=== PATIENT | male | born 1950 | race Caucasian/White ===

== ENCOUNTER → 2018-03-20 | Outpatient (CLI) | payer OTHER, MEDICARE ==
[~2018-03-20] MED LIST: BUDE180I INH; PANT40TA PO; SIMV40TA2 PO; VALS40TA2 PO; ZOLP10TA6 PO
[2018-03-20 10:18] LABS: BASO % 0.6 %; BASO ABS # 0.03 K/uL (0-0.2); EOS ABS # 0.25 K/uL (0-0.5); HEMATOCRIT 45.6 % (42-52); HEMOGLOBIN 15.6 g/dL (14.0-18.0); IG# 0.01 K/uL (0.00-0.02); LYMPH % 32.5 %; LYMPH ABS # 1.61 K/uL (1.2-3.4); MEAN CELL VOLUME 92.3 fL (80-100); MEAN CORPUSCULAR HEMOGLOBIN 31.6 pg (25-34); MEAN CORPUSCULAR HGB CONC 34.2 g/dl (32-36); MEAN PLATELET VOLUME 10.6 fL (7.4-10.4); MONO % 10.3 %; MONO ABS # 0.51 K/uL (0.11-0.59); NEUT % 51.4 %; NEUT ABS # 2.55 K/uL (1.4-6.5); PLATELET COUNT 240 K/uL (130-400); RED CELL DISTRIBUTION WIDTH SD 47.8 fL (36.4-46.3); WHITE BLOOD COUNT 4.96 K/uL (4.8-10.8)
[2018-03-20 10:59] LABS: FOLLICLE STIMULAT HORMONE 2.33 IU/L; LUTEINIZING HORMONE 0.79 IU/L; PROLACTIN 5.04 ng/mL
== END | disposition home or self-care (01) ==
LOC: C.LAB 09:05
PROVIDERS: ATTEND Family Medicine
DX: E29.1 Testicular hypofunction (principal)

== ENCOUNTER 2020-10-15 09:08 | Observation (INO) ==
[2020-10-15] MEDS ORDERED: SODIUM CHLORIDE 0.9% 1000ML 1,000 ML IV ONE (09:40)
--- NOTE | 2020-10-15 09:42 | Emergency Department Note ---
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 He notes he has lost the short-term memory. He was doing fine yesterday but had no complaints. He woke up this morning and cannot remember things that he did and things that have occurred recently. He denies any headache or change in vision. No chest pain or shortness of breath. No nausea, vomiting or diarrhea. No dysuria, urgency or frequency. No weakness or numbness in his arms or legs. He admits to a tremor on his left side associated with Parkinson's and a history of asthma and BPH. ROS: See above HPI for pertinent positives & negatives. A total of 10 systems reviewed and were otherwise negative. PAST MEDICAL HISTORY:See Below PAST SURGICAL HISTORY:See Below FAMILY HISTORY:See Below SOCIAL HISTORY:See Below HOME MEDICATIONS:See Below ALLERGIES:See Below VITALS:See Below PHYSICAL EXAMINATION: GENERAL: Sitting up in bed, alert, well appearing, well nourished, no distress, non-toxic EYE EXAM: normal conjunctiva. PERRL and EOM's intact. OROPHARYNX: no exudate, no erythema, lips, buccal mucosa, and tongue normal and mucous membranes are moist NECK: supple, no nuchal rigidity, no adenopathy, non-tender LUNGS: Clear to auscultation. Normal chest wall mechanics HEART: no murmurs, S1 normal and S2 normal ABDOMEN: abdomen soft, non-tender, normo-active bowel sounds, no masses, no rebound or guarding. UPPER EXTREMITIES: upper extremities are grossly normal. LOWER EXTREMITIES: No pitting edema. NEURO EXAM: Oriented to person and place, cranial nerves II-XII intact, normal speech, no weakness of arms, no weakness of legs. No drift. Finger to nose intact. Gross sensation intact. [id number] intact. Rapid alternating movements of upper extremities intact. 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 His long-term memory is intact. He has no focal weakness or any other complaints. IV was established blood work was obtained. Labs show no significant leukocytosis or anemia. INR unremarkable. BMP with LFTs bilirubin remarkable for slightly elevated AST. Troponin was negative. TSH was unremarkable. Urine was not collected although ordered. 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 He was updated bedside. Pacer was interrogated. He was discussed with hospitalist and will be observed overnight for further work-up as I do favor that this likely transient global amnesia. Triage Nursing notes reviewed. Limited review of prior medical records performed Vital Signs: reviewed and remarkable for hypertensive and tachycardic Differential diagnosis: Differential diagnoses includes but is not limited to toxic, metabolic, infectious, traumatic, cardiac, neurologic, hematologic, psychiatric and inflammatory etiologies. ER treatment provided: See below Diagnostics interpreted by me: ECG: Sinus tachycardia rate of 100 Normal axis No PVCs QTC 415 Cardiac Monitoring: An order was placed for continuous cardiac monitoring. The monitor shows a rate of 103 with sinus rhythm. Laboratory studies: As stated above and show below. Imaging studies: CT of the head as well as angio of the head and neck shows left internal carotid fusiform aneurysm Portable AP upright 1 view the chest shows no focal infiltrate or pneumothorax. Consultation(s): Discussed with hospitalist for further evaluation Procedures: none Critical Care: None Past Med/Surg History Medical History (Updated 10/15/20 @ 12:16 by Chloe Bo PA-C) Asthma BPH loc w urin obs/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 High blood pressure High cholesterol Hypogonadism Insomnia Low testosterone Male erectile disorder Pacemaker Parkinson disease Surgical History (Updated 10/15/20 @ 11:30 by Chloe Bo PA-C) History of arthroscopic knee surgery History of arthroscopy of shoulder b/l History of hemorrhoidectomy History of pacemaker History of penile implant History of transurethral resection of prostate History of vasectomy Family History (Updated 10/15/20 @ 11:31 by Chloe Bo PA-C) Father Coronary heart disease Pacemaker Social History (Updated 10/15/20 @ 11:31 by Chloe Bo PA-C) Smoking Status: Former smoker Tobacco Type: Cigarettes Hx Alcohol Use: Yes Alcohol type: beer Alcohol Intake Frequency Comment: 2-4 beers daily Hx Substance Use: No Preferred Language: Lebanese Beliefs That Will Affect Care: None Current Living Situation: Alone Other Information That Helps Us Care for You: No Feels Safe at Home: Yes Safety Concerns: Feels Safe At This Time Assistive Devices: Glasses Allergies Allergies Allergy/AdvReac Type Severity Reaction Status Date / Time No Known Allergies Allergy Unverified 10/15/20 10:38 Home Meds Home Medications Medication Instructions Recorded Confirmed budesonide 180 mcg/actuation 1 puffs INH BID 07/17/19 10/15/20 breath activated powder inhaler pantoprazole 40 mg tablet,delayed 40 mg PO DAILY 07/17/19 10/15/20 release aspirin 81 mg PO DAILY 10/15/20 10/15/20 atorvastatin 40 mg PO DAILY 10/15/20 10/15/20 carbidopa-levodopa 1 tab PO TID 10/15/20 10/15/20 losartan 50 mg PO DAILY 10/15/20 10/15/20 temazepam 15 mg PO HS PRN 10/15/20 10/15/20 tramadol 75 mg PO DAILY@1400 PRN 10/15/20 10/15/20 tramadol 100 mg PO DAILY 10/15/20 10/15/20 trazodone 50 mg PO UD 10/15/20 10/15/20 Results & Data (ED) Vital Signs Vital Signs - 24 hr 10/15/20 09:16 10/15/20 09:35 10/15/20 09:46 Temperature 36.3 C L Temperature Source Oral Pulse Rate 110 H 98 H 99 H Pulse Rate [Left Apical] Pulse Rate from SpO2 Sensor 98 H Pulse Rhythm Regular Pulse Rhythm [Left Apical] Pulse Strength [Left Apical] Respiratory Rate 20 19 15 Respiratory Effort / Characteristics Non-Labored Spontaneous Respiratory Depth Normal Respiratory Pattern Regular Blood Pressure 171/111 H 149/106 H Blood Pressure [Right Arm] Blood Pressure Mean 131 120 Blood Pressure Mean [Right Arm] Pulse Oximetry 94 96 93 Oxygen Delivery Method Room Air Room Air Sepsis Recent Fever Within 48 Hours No Sepsis New/Unexplained Change in Mental Status N/A Sepsis Action Taken by Nursing No Action Required 10/15/20 10:47 10/15/20 11:00 02/17/21 11:02 Temperature 36.8 C Temperature Source Oral Pulse Rate 99 H 98 H Pulse Rate [Left Apical] 96 H Pulse Rate from SpO2 Sensor 98 H 98 H Pulse Rhythm Pulse Rhythm [Left Apical] Regular Pulse Strength [Left Apical] Normal Respiratory Rate 14 13 16 Respiratory Effort / Characteristics Non-Labored Respiratory Depth Normal Respiratory Pattern Regular Blood Pressure 166/106 H 160/110 H Blood Pressure [Right Arm] 160/110 H Blood Pressure Mean 126 126 Blood Pressure Mean [Right Arm] 126 Pulse Oximetry 95 95 94 Oxygen Delivery Method Room Air Sepsis Recent Fever Within 48 Hours Sepsis New/Unexplained Change in Mental Status Sepsis Action Taken by Nursing Laboratory Data Result diagrams: 10/15/20 09:30 10/15/20 09:30 Lab Results 10/15/20 10/15/20 10/15/20 Range/Units 09:30 09:30 09:30 WBC 4.96 (4.8-10.8) K/uL RBC 4.66 L (4.7-6.1) M/uL Hgb 15.2 (14.0-18.0) g/dL Hct 43.9 (42-52) % MCV 94.2 (80-100) fL MCH 32.6 (25-34) pg MCHC 34.6 (32-36) g/dL RDW Std Deviation 45.6 (36.4-46.3) fL RDW Coeff of Nicole 13.2 (11.5-14.5) % Plt Count 215 (130-400) K/uL MPV 10.1 (7.4-10.4) fL Immature Gran % (Auto) 0.2 % Neut % (Auto) 50.6 % Lymph % (Auto) 34.7 % Logan % (Auto) 9.1 % Eos % (Auto) 5.0 % Baso % (Auto) 0.4 % Neut # (Auto) 2.51 (1.4-6.5) K/uL Lymph # (Auto) 1.72 (1.2-3.4) K/uL Logan # (Auto) 0.45 (0.11-0.59) K/uL Eos # (Auto) 0.25 (0-0.5) K/uL Baso # (Auto) 0.02 (0-0.2) K/uL Immature Gran # (Auto) 0.01 (0.00-0.02) K/uL PT 9.7 (9.0-12.0) Seconds INR 1.0 (0.9-1.1) Sodium 136 (136-145) mmol/L Potassium 3.9 (3.5-5.1) mmol/L Chloride 101 (98-107) mmol/L Carbon Dioxide 28 (21-32) mmol/L Anion Gap 7.0 (3-11) BUN 7 (7-18) mg/dl Creatinine 1.00 (0.6-1.4) mg/dl Est Cr Clr Drug Dosing 68.7 ml/min Est GFR ( Amer) 88.0 Est GFR (Non-Af Amer) 75.9 BUN/Creatinine Ratio 6.8 L (10-20) Glucose 88 (70-99) mg/dl Calcium 9.6 (8.5-10.1) mg/dl Total Bilirubin 0.6 (0.2-1) mg/dl AST 95 H (15-37) U/L ALT 30 (12-78) U/L Alkaline Phosphatase 99 (45-117) U/L Troponin I < 0.015 (0-0.045) ng/ml Total Protein 7.4 (6.4-8.2) gm/dl Albumin 4.0 (3.4-5.0) gm/dl Globulin 3.4 (2.5-4.0) gm/dl Albumin/Globulin Ratio 1.2 (0.9-2) TSH 0.695 (0.300-4.500) uIu/ml COVID-19 Eval Order SARS-CoV-2, RNA, NAAT (NEGATIVE) 10/15/20 10/15/20 Range/Units 10:39 10:39 WBC (4.8-10.8) K/uL RBC (4.7-6.1) M/uL Hgb (14.0-18.0) g/dL Hct (42-52) % MCV (80-100) fL MCH (25-34) pg MCHC (32-36) g/dL RDW Std Deviation (36.4-46.3) fL RDW Coeff of Nicole (11.5-14.5) % Plt Count (130-400) K/uL MPV (7.4-10.4) fL Immature Gran % (Auto) % Neut % (Auto) % Lymph % (Auto) % Logan % (Auto) % Eos % (Auto) % Baso % (Auto) % Neut # (Auto) (1.4-6.5) K/uL Lymph # (Auto) (1.2-3.4) K/uL Logan # (Auto) (0.11-0.59) K/uL Eos # (Auto) (0-0.5) K/uL Baso # (Auto) (0-0.2) K/uL Immature Gran # (Auto) (0.00-0.02) K/uL PT (9.0-12.0) Seconds INR (0.9-1.1) Sodium (136-145) mmol/L Potassium (3.5-5.1) mmol/L Chloride (98-107) mmol/L Carbon Dioxide (21-32) mmol/L Anion Gap (3-11) BUN (7-18) mg/dl Creatinine (0.6-1.4) mg/dl Est Cr Clr Drug Dosing ml/min Est GFR ( Amer) Est GFR (Non-Af Amer) BUN/Creatinine Ratio (10-20) Glucose (70-99) mg/dl Calcium (8.5-10.1) mg/dl Total Bilirubin (0.2-1) mg/dl AST (15-37) U/L ALT (12-78) U/L Alkaline Phosphatase (45-117) U/L Troponin I (0-0.045) ng/ml Total Protein (6.4-8.2) gm/dl Albumin (3.4-5.0) gm/dl Globulin (2.5-4.0) gm/dl Albumin/Globulin Ratio (0.9-2) TSH (0.300-4.500) uIu/ml COVID-19 Eval Order Covid19 [facility] SARS-CoV-2, RNA, NAAT NEGATIVE (NEGATIVE) Administered Medications Discontinued Medications Carbidopa/Levodopa (Carbidopa/Levodopa 25/100mg Tab) 1 tab PO NOW STA Stop: 10/15/20 12:07 Last Admin: 10/15/20 13:00 Dose: 1 tab Documented by: [id number] Sodium Chloride (Nss 1000ml) 1,000 mls @ 999 mls/hr IV .Q1H1M ONE Stop: 10/15/20 10:40 Last Infusion: 10/15/20 11:18 Dose: 0 mls/hr Documented by: [id number] Admin: 10/15/20 10:02 Dose: 999 mls/hr Documented by: [id number] Ioversol (Optiray 320 125ml) 120 ml IV ONCE ONE Stop: 10/15/20 10:16 Last Admin: 10/15/20 10:15 Dose: 120 ml Documented by: [id number] Discharge Plan Visit Data Chief Complaint: Confusion Stated Complaint: CONFUSION ED Provider: Christian Varma Discharge Problem: Altered mental status, Aneurysm of internal carotid artery Patient Disposition: Admitted As Inpatient Discharge Instructions Interventions: ED Discharge Assessment Last Done: 10/15/20 13:05 Discharge Problem: Altered mental status Qualifiers: Altered mental status type: unspecified Qualified Code(s): R41.82 - Altered mental status, unspecified
[2020-10-15 09:43] LABS: Basophils # (auto) 0.02 K/uL (0-0.2); Basophils % (auto) 0.4 %; Eosinophils # (auto) 0.25 K/uL (0-0.5); Hematocrit (blood only) 43.9 % (42-52); Hemoglobin 15.2 g/dL (14.0-18.0); Immature Granulocytes # (auto) 0.01 K/uL (0.00-0.02); Immature Granulocytes % (auto) 0.2 %; Lymphocytes # (auto) 1.72 K/uL (1.2-3.4); Lymphocytes % (auto) 34.7 %; Mean Corpuscular Hemoglobin 32.6 pg (25-34); Mean Corpuscular Hgb Conc 34.6 g/dL (32-36); Mean Corpuscular Volume 94.2 fL (80-100); Mean Platelet Volume 10.1 fL (7.4-10.4); Monocytes # (auto) 0.45 K/uL (0.11-0.59); Monocytes % (auto) 9.1 %; Neutrophils # (auto) 2.51 K/uL (1.4-6.5); Neutrophils % (auto) 50.6 %; Platelet Count 215 K/uL (130-400); RDW Coefficient of Variation 13.2 % (11.5-14.5); RDW Standard Deviation 45.6 fL (36.4-46.3); Red Blood Count 4.66 M/uL (4.7-6.1); White Blood Count 4.96 K/uL (4.8-10.8)
[2020-10-15 09:54] LABS: Prothrombin Time 9.7 Seconds (9.0-12.0)
[2020-10-15 10:03] LABS: Alanine Aminotransferase 30 U/L (12-78); Aspartate Aminotransferase 95 U/L (15-37); BUN Creatinine Ratio 6.8 (10-20); Blood Urea Nitrogen 7 mg/dl (7-18); Calcium 9.6 mg/dl (8.5-10.1); Carbon Dioxide 28 mmol/L (21-32); Chloride 101 mmol/L (98-107); Creatinine Clr Calc Pharmacy 68.7 ml/min; Est GFR (Non-African American) 75.9; Glucose 88 mg/dl (70-99); Potassium 3.9 mmol/L (3.5-5.1); Sodium 136 mmol/L (136-145)
[2020-10-15 10:14] LABS: Albumin Globulin Ratio 1.2 (0.9-2); Alkaline Phosphatase 99 U/L (45-117); Bilirubin,Total 0.6 mg/dl (0.2-1); Globulin 3.4 gm/dl (2.5-4.0); Thyroid Stimulating Hormone 0.695 uIu/ml (0.300-4.500); Total Protein 7.4 gm/dl (6.4-8.2); Troponin I < 0.015 ng/ml (0-0.045)
[2020-10-15] MEDS ORDERED: OPTIRAY 320 125ml IV ONE (10:15)
--- NOTE | 2020-10-15 10:40 | CT Scan Report ---
CT angio head wo/w CLINICAL HISTORY: Altered mental status. COMPARISON STUDY: No previous studies for comparison. TECHNIQUE: Unenhanced and arterial phase imaging of the head was performed. Intravenous injection of 120 cc Optiray 320 IV was uneventful. Sagittal and coronal reconstructions were viewed as well as max imal intensity projections on an independent 3-D workstation. Automated exposure control was utilized for the study. A dose lowering technique was utilized adhering to the principles of ALARA. FINDINGS: No acute intracranial hemorrhage, midline shift or mass effect is present. Brain volume is normal. Ventricular system is normal. Basilar cisterns are patent. There are no extra-axial collectio ns. Mild white matter hypodensity suggests small vessel disease. There are no findings to suggest acu te dural sinus thrombosis or acute territorial infarct. Visualized portions of the sinuses and mastoi d air cells are clear. There is mild fusiform aneurysmal dilatation of the left internal carotid valencia ry at the level of the skull base shown on axial image 9 of 240. The vessel measures 7 mm in caliber at this level. No saccular aneurysm is identified. No intracranial aneurysm is identified. There is f etal persistence of the right posterior cerebral artery. No central vessel occlusion is noted. The bi lateral M1, M2, A1 and A2 segments are patent. IMPRESSION: 1. No acute intracranial findings. 2. No central vessel occlusion. No significant stenosis within the intracranial vessels. 3. Mild fusiform aneurysmal dilatation of the left internal carotid artery at the level of the skull base, as described above. ACT 112: Negative or not required by law. Electronically signed by: Holland Jackson M.D. 10/15/2020 10:38 AM
--- NOTE | 2020-10-15 10:42 | CT Scan Report ---
CT angio neck with con CLINICAL HISTORY: 69 years-old Male with ams. Acutely altered mental status COMPARISON STUDY: CTA of the head of same day TECHNIQUE: Following the IV administration of 120 mL of Optiray 320, CT angiogram of the neck was per formed from the aortic arch to the skull base. Images are reviewed in the axial, sagittal, and dockery l planes. 3-D MIPS images are created and assessed. IV contrast was administered without complication . All measurements were calculated based on NASCET criteria. A dose lowering technique was utilized adhering to the principles of ALARA. FINDINGS: The opacified pulmonary artery is unremarkable. Three-vessel morphology of the thoracic arch. Patency of the innominate and imaged subclavian arteries. Common carotid arteries are widely patent. There i s mild mixed plaque of the right carotid bulb without significant stenosis. Tortuosity of the mid to distal cervical segment right ICA. There is mild fusiform dilation of the left ICA at the cervical pe trous junction measuring up to 7 mm transversely. Codominant and patent vertebral arteries. Calcified plaque at the origin of the left vertebral artery results in approximately 50% luminal narrowing. Th ere is mild luminal narrowing of the V2 segment left vertebral artery at the level of C4-C5 secondary to uncovertebral spurring, image 231 series 6. Calcified plaque at the origin of the right vertebral artery causes mild luminal narrowing. Calcified mediastinal and hilar lymph nodes compatible with prior granulomatous disease. There is no pneumothorax. Hyperdense 12 mm nodule of the thyroid isthmus. Unremarkable soft tissues of the neck. Multilevel degenerative changes of the spine. IMPRESSION: 1. No aneurysm, dissection, high-grade stenosis or proximal branch occlusion. 2. Additional findings as above. ACT 112: Negative or not required by law. The above report was generated using voice recognition software. It may contain grammatical, syntax o r spelling errors. Electronically signed by: Josias Plunkett M.D. 10/15/2020 10:41 AM
--- NOTE | 2020-10-15 10:48 | XRay Report ---
XR chest 1V portable HISTORY: 69 years-old Male weakness acute weakness COMPARISON: CTA of the neck of same day, chest radiograph 11/26/2012 TECHNIQUE: Portable AP view of the chest FINDINGS: Cardiomediastinal and hilar silhouettes are within normal limits. Left subclavian pacer. Calcified le ft hilar lymph nodes. Nipple shadows project over the lung bases. Probable calcific granuloma of the lateral left lung base. No pneumothorax, pleural effusion, airspace consolidation or overt pulmonary edema. Degenerative changes of the shoulders and spine. Radiodense material projects over the patient 's left upper extremity, possibly external to the patient. IMPRESSION: 1. Prior granulomatous disease without acute process. 2. Nodular opacities of the lung bases suggest nipple shadows. ACT 112: Negative or not required by law. The above report was generated using voice recognition software. It may contain grammatical, syntax o r spelling errors. Electronically signed by: Josias Plunkett M.D. 10/15/2020 10:46 AM
--- NOTE | 2020-10-15 11:22 | History & Physical Report ---
Date of Service October 15, 2020 Assessment & Plan (1) Altered mental status: This is a 69-year-old male who has significant past medical history of SA node dysfunction status post pacemaker in 2013, HTN, HLD, asthma, GERD, Parkinson's who presents ED secondary to confusion x4 to 5 hours. Work up in ED mostly unrevealing. Patient was hemodynamically stable although modestly hypertensive and mildly tachycardic. 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 Patient with transient confusion that started at approximately 730 this morning. Feels it is improving but still has intermittent confusion, difficulty recal ling events this morning. Admit to med telemetry Consult neurology -appreciate their recommendations for further imaging including MRI EEG rule out seizure-like activity neuro checks pt/ot/st vit b12, rpr ddx: possible TGA, CVA, alcohol misuse and withdrawal, Wernicke encephalopathy, vit b def, drug toxicity among others (2) Aneurysm of internal carotid artery: incidental finding on CTA H/N recommend follow up as outpt (3) Sinus node dysfunction: s/p pacemaker in 2003 had pacer check 10/07 WNL, also had done in ED WNL (4) Alcohol abuse: 2-4 beers daily last drink last evening 4 beers start thiamine, folic acid prn lorazepam and withdrawal protocol (5) High blood pressure: BP significantly elevated in ED, may be in setting of anxiety vs underlying neurologic process continue losartan - states measures BP at home and consistently 130/90 or less prn hydralazine monitor (6) High cholesterol: continue statin (7) Insomnia: temazepam @ hs prn (8) Parkinson disease: continue sinemet (9) DVT prophylaxis: Lovenox Dispo: med tele PCP: Dr. Moore @ [facility], follows [facility]DC[facility] cards and neurology FULL CODE Pt was seen and examined in collaboration with Dr. Sanderson, please see addendum History of Present Illness Chief Complaint: Confusion x4 to 5 hours. Primary Care Provider: Guillermo Moore MD This is a 69-year-old male who has significant past medical history of SA node dysfunction status post pacemaker in 2013, HTN, HLD, asthma, GERD, Parkinson's who presents ED secondary to confusion x4 to 5 hours. He woke up this morning and he felt okay around 6:30 a.m. Gradually things started to feel funny and he was to report to work at 9am. Driving to work he realized he was more and more, "not right." He was having trouble remembering what he just did. He recalls events from yesterday and knows he had 4 beers yesterday as he had a, "date." He is recently but feels he has not had an recent stressor. He is having difficulty remembering his medications or his doctors. He denies recent illness, f/c/s, dizziness, lightheaded, syncope, BARNES, visual change, chest pain, sob, cough, URI sx, n/v/d, abdominal pain, change in urinary/bowel habits. Sx lasted ~ 7:30 a.m. and still feels confused but is slowly starting to recall. Known exposure to covid 1 month ago but no symptoms. He did receive covid vaccine, second dose 1 week ago. He did have a sore arm and 12hrs of flu like sx post vaccine. Sx feel similar to when he presented with bradycardia when he required pacer. Allergies Allergy/AdvReac Type Severity Reaction Status Date / Time No Known Allergies Allergy Unverified 10/15/20 10:38 Home Medications Medication Instructions Recorded Confirmed Type budesonide 180 mcg/actuation 1 puffs INH BID 07/17/19 10/15/20 History breath activated powder inhaler pantoprazole 40 mg tablet,delayed 40 mg PO DAILY 07/17/19 10/15/20 History release aspirin 81 mg PO DAILY 10/15/20 10/15/20 History atorvastatin 40 mg PO DAILY 10/15/20 10/15/20 History carbidopa-levodopa 1 tab PO TID 10/15/20 10/15/20 History losartan 50 mg PO DAILY 10/15/20 10/15/20 History temazepam 15 mg PO HS PRN 10/15/20 10/15/20 History tramadol 75 mg PO DAILY@1400 PRN 10/15/20 10/15/20 History tramadol 100 mg PO DAILY 10/15/20 10/15/20 History trazodone 50 mg PO UD 10/15/20 10/15/20 History Past Med/Surg History Medical History (Updated 10/15/20 @ 12:16 by Chloe Bo PA-C) Asthma BPH loc w urin obs/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 High blood pressure High cholesterol Hypogonadism Insomnia Low testosterone Male erectile disorder Pacemaker Parkinson disease Surgical History (Updated 10/15/20 @ 11:30 by Chloe Bo PA-C) History of arthroscopic knee surgery History of arthroscopy of shoulder b/l History of hemorrhoidectomy History of pacemaker History of penile implant History of transurethral resection of prostate History of vasectomy Family History (Updated 10/15/20 @ 11:31 by Chloe Bo PA-C) Father Coronary heart disease Pacemaker Social History (Updated 10/15/20 @ 11:31 by Chloe Bo PA-C) Smoking Status: Former smoker Tobacco Type: Cigarettes Hx Alcohol Use: Yes Alcohol type: beer Alcohol Intake Frequency Comment: 2-4 beers daily Hx Substance Use: No Preferred Language: [place] Zeal[place] Beliefs That Will Affect Care: None Current Living Situation: Alone Other Information That Helps Us Care for You: No Feels Safe at Home: Yes Safety Concerns: Feels Safe At This Time Assistive Devices: Glasses Review of Systems Review of Systems: All systems reviewed & are unremarkable except as noted in HPI & below Physical Exam Physical Exam: Constitutional: WD/WN, M, vitals as above, NAD, sitting up in bed, pleasant, conversing easily Head: Normocephalic, Atraumatic Eyes: PERRL, conjunctivae normal, anicteric sclerae ENMT: external ear and nose normal, oropharynx normal Neck: trachea midline, no thyromegaly normal visual inspection Respiratory: normal respiratory effort, lungs clear to auscultation, no wheeze, rales, rhonchi. Normal insp/exp effort, no accessory muscle use Cardiovascular: RRR, no murmur, no edema Vessels: no JVD or carotid bruit Chest: normal inspection of chest Abdomen: normal bowel sounds, soft, nontender, no hepatosplenomegaly Musculoskeletal: no cyanosis or clubbing, extremities motor strength 5/5 Skin: no rashes, warm and dry normal turgor Neurologic: PERRL, EOMI, accommodation nl, no face palsy, no dysarthria CN's II-XI intact bilaterally and moves all extremities Psychiatric: A+Ox3, decent recall, remembers president (states he looked it up), able to count backwards, euthymic affect Lymphatic: no cervical or axillary lymphadenopathy : deferred Results & Data Results & Data ([facility]) Vital Signs (Past 12 Hours) Vital Signs Temp Pulse Pulse Resp BP BP Pulse Ox 10/15/20 11:02 36.8 C 96 H 16 160/110 H 94 10/15/20 11:00 98 H 13 160/110 H 95 10/15/20 10:47 99 H 14 166/106 H 95 10/15/20 09:46 99 H 15 149/106 H 93 10/15/20 09:35 98 H 19 96 10/15/20 09:16 36.3 C L 110 H 20 171/111 H 94 Diagnostic Findings CTA Head: IMPRESSION: 1. No acute intracranial findings. 2. No central vessel occlusion. No significant stenosis within the intracranial vessels. 3. Mild fusiform aneurysmal dilatation of the left internal carotid artery at the level of the skull base, as described above. CTA neck: IMPRESSION: 1. No aneurysm, dissection, high-grade stenosis or proximal branch occlusion. 2. Additional findings as above. CXR: IMPRESSION: 1. Prior granulomatous disease without acute process. 2. Nodular opacities of the lung bases suggest nipple shadows. Medications Administered Discontinued Medications Sodium Chloride (Nss 1000ml) 1,000 mls @ 999 mls/hr IV .Q1H1M ONE Stop: 10/15/20 10:40 Last Infusion: 10/15/20 11:18 Dose: 0 mls/hr Documented by: [id number] Admin: 10/15/20 10:02 Dose: 999 mls/hr Documented by: [id number] Ioversol (Optiray 320 125ml) 120 ml IV ONCE ONE Stop: 10/15/20 10:16 Last Admin: 10/15/20 10:15 Dose: 120 ml Documented by: [id number] ECG Rate (beats per minute): 100 Rhythm: normal sinus COVID-19 Results Results COVID-19 Adm Lab Results: RBC 4.66 M/uL (4.7-6.1) L 10/15/20 WBC 4.96 K/uL (4.8-10.8) 10/15/20 Hgb 15.2 g/dL (14.0-18.0) 10/15/20 Hct 43.9 % (42-52) 10/15/20 Plt Count 215 K/uL (130-400) 10/15/20 Neutrophils (%) (Auto) 50.6 % 10/15/20 Lymphocytes (%) (Auto) 34.7 % 10/15/20 Monocytes # (Auto) 0.45 K/uL (0.11-0.59) 10/15/20 Eosinophils # (Auto) 0.25 K/uL (0-0.5) 10/15/20 Immature Granulocyte % (Auto) 0.2 % 10/15/20 Neutrophils # (Auto) 2.51 K/uL (1.4-6.5) 10/15/20 Lymphocytes # (Auto) 1.72 K/uL (1.2-3.4) 10/15/20 Monocytes # (Auto) 0.45 K/uL (0.11-0.59) 10/15/20 Eosinophils # (Auto) 0.25 K/uL (0-0.5) 10/15/20 Basophils # (Auto) 0.02 K/uL (0-0.2) 10/15/20 Immature Granulocyte # (Auto) 0.01 K/uL (0.00-0.02) 10/15/20 Na 136 mmol/L (136-145) 10/15/20 K 3.9 mmol/L (3.5-5.1) 10/15/20 Cl 101 mmol/L (98-107) 10/15/20 CO2 28 mmol/L (21-32) 10/15/20 Anion Gap 7.0 (3-11) 10/15/20 BUN 7 mg/dl (7-18) 10/15/20 Creatinine 1.00 mg/dl (0.6-1.4) 10/15/20 BUN/Creatinine Ratio 6.8 (10-20) L 10/15/20 Glucose Level 88 mg/dl (70-99) 10/15/20 Ca 9.6 mg/dl (8.5-10.1) 10/15/20 Total Bilirubin 0.6 mg/dl (0.2-1) 10/15/20 AST/SGOT 95 U/L (15-37) H 10/15/20 ALT/SGPT 30 U/L (12-78) 10/15/20 Alkaline Phosphatase 99 U/L (45-117) 10/15/20 Total Protein 7.4 gm/dl (6.4-8.2) 10/15/20 Albumin 4.0 gm/dl (3.4-5.0) 10/15/20 Globulin 3.4 gm/dl (2.5-4.0) 10/15/20 Albumin/Globulin Ratio 1.2 (0.9-2) 10/15/20 Troponin I < 0.015 ng/ml (0-0.045) 10/15/20 INR 1.0 (0.9-1.1) 10/15/20 SARS-CoV-2, RNA, NAAT NEGATIVE (NEGATIVE) 10/15/20 Chest X-Ray 10/15/20 Code Status & VTE Plan Code Status Full Code VTE Prophylaxis Plan VTE Prophylaxis will be ordered: Yes Supervising Physician Co-Signing Physician Notes Patient is a 69-year-old male with history of Parkinson's disease, hypertension, asthma, SA node dysfunction and other medical problems presents with history of sudden onset of confusion/short-term memory this morning. He admits to having trouble remembering the events and does not feel to be himself today. He reports having 4 beers yesterday but denies any history of drug overdose, seizure activity, head trauma, change in vision, headache, focal weakness, recent stressors, hallucinations, delusions. Please review HPI for complete details of presentation. He had similar episodes previously when he was found to have a synovial dysfunction which resulted in pacemaker placement at that time. CT head, neck noncontributory. On exam patient is well-built and nourished, no apparent distress, normocephalic atraumatic, lungs are clear to auscultation, normal breath sounds, S1-S2, no murmur, abdomen soft, nontender, normal bowel sounds, alert, awake, oriented, grossly no focal neurological deficits, no pedal edema. + Memory issues recollecting events. Patient is admitted for management of altered mental status/memory issues DD: TGA, TIA, Seizure, Toxic/Metabolic Encephalopathy. Pacemaker interrogated while in ED which was normal. TSH normal. Will obtain toxicology screen, EEG, RPR, vitamin B12 levels. Consider MRI brain if needed. Neurochecks requested. Infectious cause less likely. Will monitor on telemetry. He denies any recent change in his medication dose. Will monitor for any alcohol withdrawal. Started on thiamine, folic acid. Blood pressure elevated in ED likely situational. Will adjust hypertensive medications as needed. I personally reviewed the record. Patient is interviewed and examined at bedside. Patient's care is coordinated with Chloe Bo PA-C. Please refer to the documentation above for details of patient's presentation and for discussion of other issues. (1) Altered mental status Altered mental status type: unspecified Qualified Code(s): R41.82 - Altered mental status, unspecified
[2020-10-15 11:36] LABS: Appearance Urine Clear (Clear); Bilirubin Urine Negative (Negative); Blood Urine Negative (Negative); Color Urine Yellow; Glucose Urine UA Negative (Negative); Ketones Urine Negative (Negative); Leukocyte Esterase Urine Negative (Negative); Nitrite Urine Negative (Negative); Protein Urine Negative (Negative); Specific Gravity Urine 1.024 (1.000-1.030); Urobilinogen Urine Negative (Negative); pH Urine 6.5 (4.5-7.5)
[2020-10-15] MEDS ORDERED: TRAMADOL 100 MG PO PRN (12:05)
[2020-10-15] MEDS ORDERED: CARBIDOPA/LEVODOPA 25/100MG TAB PO STA (12:06)
[2020-10-15 12:36] LABS: Amphetamines+Metham, Urine Neg (Neg); Barbiturates, Urine Neg (Neg); Benzodiazepine, Urine Neg (Neg); Cocaine, Urine Neg (Neg); MDMA (Ecstacy), Urine Neg (Neg); Methadone, Urine Neg (Neg); Opiate, Urine Neg (Neg); Phencyclidine, Urine Neg (Neg)
[2020-10-15] MEDS ORDERED: ONDANSETRON INJ 2 MG/ML 2 ML VIAL IV PRN (14:13)
[2020-10-15] MEDS ORDERED: ACETAMINOPHEN 325 MG TAB PO PRN (14:13)
[2020-10-15] MEDS ORDERED: hydrALAZINE 10 MG TAB PO PRN (14:13)
[2020-10-15] MEDS ORDERED: LORazepam 1 MG TAB PO PRN (14:13)
[2020-10-15] MEDS ORDERED: PHARMACIST DISCHARGE MED REC CONSULT PRN (14:13)
[2020-10-15] MEDS ORDERED: MAGNESIUM HYDROXIDE SUSP 30 ML UDC PO PRN (14:13)
[2020-10-15] MEDS ORDERED: traZODone HCL 50 MG TAB PO PRN (14:13)
[2020-10-15] MEDS ORDERED: TEMAZEPAM 15 MG CAPSULE PO PRN (14:13)
[2020-10-15] MEDS ORDERED: ALUMINUM/MAGNESIUM SUSP 30 ML UDC PO PRN (14:13)
[2020-10-15] MEDS ORDERED: POLYETHYLENE (MIRALAX) 17 GM PACK PO PRN (14:13)
--- NOTE | 2020-10-15 15:20 | Neurology Consultation ---
Date of Consultation October 15, 2020 Assessment & Plan (1) Parkinson disease: 1. continue Sinemet 25/100 mg TID for now- stable Present on Admission?: Yes (2) Pacemaker: 1. pacemaker interrogation Present on Admission?: Yes (3) Altered mental status: 1. EEG- if not already ordered 2. MRI brain with and without r/o stroke- has had MRIs at [facility] in the past with pacemaker rep present 3. continue aspirin 81 mg 4. optimize HTN HLD, LDL <70 5. may have been a hypertensive crisis- slowly decreased blood pressure Supervising Physician Co-Signing Physician Notes I have seen and discussed above patient with Dr Angelina Alicea, neurology patient seen and examined. About 4 years ago the patient had multiple episodes of dj vu and abnormal smells with weird feelings. His evaluation at that time by report showed a normal MRI and EEG and sometime thereafter a permanent pacemaker was placed. He never had any further episodes and was not on any new medications that would have surreptitiously treated seizure. On today's episode he was he woke up normal and was so for about an hour and then became "walfy" not mentally clear having some strange unusual feelings that may have been somewhat similar to the prior episodes 4 years ago but not entirely so. He was having difficulty if what he remembered was true or something he dreamed he was entirely alone so no one knows his level of function but he knew he was unwell drove to the hospital texted his work and told him he would not be in. He did not have a headache or any focal neurologic deficits. He had had 4 cans of beer last evening took a trazodone and took a Restoril during the night also took tramadol although this would not be unusual for him. He tooktramadol this morning as well Patient is awake and alert speech and language are normal affect is appropriate there are no carotid bruits no heart murmurs normal extraocular motility facial symmetry and symmetric strength. There is some cogwheeling at the left wrist and modest tremor on [id number] in the left his gait is nonparkinsonian Episode of confusion for which the patient is somewhat amnestic but functional and able to recognize his deficit which is unusual for transient global amnesia. The differential includes a partial complex seizure polypharmacy which I doubt for the reasons mentioned above transient ischemic attack. Recommend MRI of the brain with [employer] rep if possible EEG. Mild fusiform dilatation of the left internal carotid artery at the skull base recommend vascular interventional neurosurgery evaluation as an outpatient Essential tremor, Parkinson's disease. Doubt his episodes were related to levodopa carbidopa. That and his rasagiline are not new. The patient should see Dr. Moncada as an outpatient History of Present Illness Reason for Consultation: confusion possible TGA Requesting Physician: Jose Sanderson MD Attending Physician: Jose Sanderson MD History of Present Illness Los is a 69 year old male with PMH- SA node dysfunction status post pacemaker in 2013, HTN, HLD, asthma, GERD, Parkinson's (sees Dr Johns in our clinic) presented to the [facility] ED secondary to confusion approximately 4-5 hours. When he woke this am he was having trouble concentrating on breakfast and getting ready. Uncertain he left out the dogs or if he took is blood pressure medications. He started driving to work he realized he was "not right." He was having trouble remembering what he just did. He recalls events from yesterday and knows he had 4 beers yesterday and does have 2-3 beers daily. He is recently and lives alone. 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 He is having difficulty remembering his medications or his doctors. He denies recent illness, lightheaded, syncope, head trauma. He is feeling about 98% back to normal. He did receive covid vaccine, second dose 1 week ago. He felt similar when he presented with bradycardia and required pacer placement. He did take a trazodone last night prior to bed which he hasn't done for a while. denies CP, SOB, abdominal pain, one sided weakness, numbness tingling vision changes. Allergies Allergy/AdvReac Type Severity Reaction Status Date / Time No Known Allergies Allergy Unverified 10/15/20 10:38 Home Medications Medication Instructions Recorded Confirmed Type pantoprazole 40 mg tablet,delayed 40 mg PO DAILY 07/17/19 10/15/20 History release aspirin 81 mg PO DAILY 10/15/20 10/15/20 History atorvastatin 40 mg PO DAILY 10/15/20 10/15/20 History budesonide-formoterol [Symbicort] 1 puff INHALATION BID 10/15/20 10/15/20 History carbidopa-levodopa 1 tab PO TID 10/15/20 10/15/20 History losartan 50 mg PO DAILY 10/15/20 10/15/20 History temazepam 15 mg PO HS PRN 10/15/20 10/15/20 History tramadol 75 mg PO DAILY@1400 PRN 10/15/20 10/15/20 History tramadol 100 mg PO DAILY 10/15/20 10/15/20 History trazodone 25 mg PO HS PRN 10/15/20 10/15/20 History Patient History Medical History (Updated 10/15/20 @ 12:16 by Chloe Bo PA-C) Asthma BPH loc w urin obs/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 High blood pressure High cholesterol Hypogonadism Insomnia Low testosterone Male erectile disorder Pacemaker Parkinson disease Surgical History (Updated 10/15/20 @ 11:30 by Chloe Bo PA-C) History of arthroscopic knee surgery History of arthroscopy of shoulder b/l History of hemorrhoidectomy History of pacemaker History of penile implant History of transurethral resection of prostate History of vasectomy Family History (Updated 10/15/20 @ 11:31 by Chloe Bo PA-C) Father Coronary heart disease Pacemaker Social History (Updated 10/15/20 @ 11:31 by Chloe Bo PA-C) Smoking Status: Former smoker Tobacco Type: Cigarettes Hx Alcohol Use: Yes Alcohol type: beer Alcohol Intake Frequency Comment: 2-4 beers daily Hx Substance Use: No Preferred Language: Mozambican Beliefs That Will Affect Care: None Current Living Situation: Alone Other Information That Helps Us Care for You: No Feels Safe at Home: Yes Safety Concerns: Feels Safe At This Time Assistive Devices: Glasses Review of Systems Review of Systems: All systems reviewed & are unremarkable except as noted in HPI & below Physical Exam Physical Exam: Physical Exam: Constitutional: appearance nourished, healthy and normal Ears, Nose, Mouth and Throat: mucous membranes moist, no injection and skin normal, eyes normal Cardiovascular: normal S-1 and S-2 and regular rate and rhythm Respiratory: clear to auscultation (CTA) and no rales, ronchi or wheeze Musculoskeletal: no peripheral edema and good distal pulses Skin: no stigmata of neurocutaneous disease noted and normal and intact Eyes: extraocular muscles intact (EOMI) and pupils equal, round and reactive to light (PERRL), gross peripheral rajput intact NEUROLOGIC EXAMINATION: Mental status: Alert and interactive Oriented to full date and location Oriented to person Speech fluent with no evidence of aphasia Cranial Nerves smile eye brow raise symmetric Reflexes: Deep tendon reflexes were symmetrical and decrease LE, 2/5 UE bilaterally Sensory: intact to light cool touch Coordination: finger to nose, right intact left tremor with intension and slight resting tremor Gait/Stance: Posture normal. Gait normal: with steady with steps, base, turning, heel and toe walking and tandem gait slightly bradykinetic Motor: Negative for pronator drift of out stretched arms with eyes closed. 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 bilaterally hip flex 5/5 plantar patellar flex ext 5/5 Results & Data ([facility]) Vital Signs (Past 12 Hours) Vital Signs Temp Pulse Pulse Resp BP BP Pulse Ox 10/15/20 14:19 102 H 10/15/20 13:30 36.4 C L 102 H 20 175/105 H 92 10/15/20 12:30 90 12 154/97 H 10/15/20 12:00 97 H 16 10/15/20 11:43 101 H 23 142/119 H 10/15/20 11:38 100 H 31 H 179/120 H 10/15/20 11:30 102 H 21 188/120 H 10/15/20 11:26 98 H 19 10/15/20 11:24 105 H 18 174/120 H 10/15/20 11:02 36.8 C 96 H 16 160/110 H 94 10/15/20 11:00 98 H 13 160/110 H 95 10/15/20 10:47 99 H 14 166/106 H 95 10/15/20 09:46 99 H 15 149/106 H 93 10/15/20 09:35 98 H 19 96 10/15/20 09:16 36.3 C L 110 H 20 171/111 H 94 Laboratory Results Abnormal lab results 10/15/20 10/15/20 Range/Units 09:30 09:30 RBC 4.66 L (4.7-6.1) M/uL BUN/Creatinine Ratio 6.8 L (10-20) AST 95 H (15-37) U/L Diagnostic Findings CTA head- No acute intracranial findings. No central vessel occlusion. No significant stenosis within the intracranial vessels. Mild fusiform aneurysmal dilatation of the left internal carotid artery at the level of the skull base. CTA neck- No aneurysm, dissection, high-grade stenosis or proximal branch occlusion. (1) Altered mental status Altered mental status type: unspecified Qualified Code(s): R41.82 - Altered mental status, unspecified
[2020-10-15] MEDS: traMADol HCL 50 MG TABLET PO SCH (15:46)
[2020-10-15] MEDS: THIAMINE HCL 100 MG TAB PO SCH (15:57)
[2020-10-15] MEDS: FOLIC ACID 1 MG TAB PO SCH (15:57)
[2020-10-15] MEDS: FLUTICASONE/VILANTEROL 200/25MCG 14 PUFFS/INHALER INH SCH (15:57)
[2020-10-15] MEDS: CARBIDOPA/LEVODOPA 25/100MG TAB PO SCH (20:42)
[2020-10-15] MEDS ORDERED: ENOXAPARIN INJ 40 MG/0.4 ML SYR SQ SCH (22:00)
--- NOTE | 2020-10-16 06:09 | Electrocardiogram Report ---
Test Reason : Blood Pressure : / mmHG Vent. Rate : 100 BPM Atrial Rate : 100 BPM P-R Int : 138 ms QRS Dur : 084 ms QT Int : 322 ms P-R-T Axes : 039 -10 031 degrees QTc Int : 415 ms Poor data quality, interpretation may be adversely affected Normal sinus rhythm Possible Left atrial enlargement Borderline ECG No previous ECGs available Confirmed by Manuel Venegas ([id number]) on 10/16/2020 6:08:47 AM Referred By: Confirmed By:Manuel Venegas
[2020-10-16 07:43] LABS: Hematocrit (blood only) 43.7 % (42-52); Hemoglobin 15.1 g/dL (14.0-18.0); Mean Corpuscular Hemoglobin 32.9 pg (25-34); Mean Corpuscular Hgb Conc 34.6 g/dL (32-36); Mean Corpuscular Volume 95.2 fL (80-100); Mean Platelet Volume 10.4 fL (7.4-10.4); Platelet Count 223 K/uL (130-400); RDW Coefficient of Variation 13.5 % (11.5-14.5); RDW Standard Deviation 46.8 fL (36.4-46.3); Red Blood Count 4.59 M/uL (4.7-6.1); White Blood Count 6.14 K/uL (4.8-10.8)
--- NOTE | 2020-10-16 07:50 | Hospitalist Progress Note ---
Date of Service October 16, 2020 Assessment & Plan (1) Altered mental status: Transient amnesia/ TIA This is a 69-year-old male who has significant past medical history of SA node dysfunction status post pacemaker in 2013, HTN, HLD, asthma, GERD, Parkinson's who presents ED secondary to confusion x4 to 5 hours. Work up in ED mostly unrevealing. Patient was hemodynamically stable although modestly hypertensive and mildly tachycardic. 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 Patient with transient confusion that started at approximately 730 AM of admission. Feels it is improving but still has intermittent confusion, difficulty recalling events the morning of admision. Admitted to med telemetry telemetry reviewed - pt in sinus rhythm Consulted neurology - appreciate their recommendations for further imaging including MRI MRI recommended and obtained - IMPRESSION: 1. No acute intracranial findings 2. No evidence of acute or subacute infarction 3. No evidence of intracranial mass 4. Scattered foci of increased T2 and FLAIR signal within the white matter, likely small vessel ischemic basis. EEG obtained - no seizure-like activity noted Neuro checks while inpt pt/ot/st vit b12 - WNL, rpr - nonreactive ddx: possible TGA, CVA, alcohol misuse and withdrawal, Wernicke encephalopathy, vit b def, drug toxicity among others Neurology evaluated the pt - likely TIA, recommend to cont current sinemet LDL <70, cont. home statin cont. ASA Follow up w/ Dr. 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 - pt will need to follow up w/ vascular surgery as outpt images pushed to [facility] via PACS system and CD to burnt for the pt as well (3) Sinus node dysfunction: s/p pacemaker in 2003 had pacer check 10/07 WNL, also had done in ED WNL (4) Alcohol abuse: 2-4 beers daily last drink last evening 4 beers thiamine, folic acid prn lorazepam and withdrawal protocol (5) High blood pressure: BP significantly elevated in ED, may be in setting of anxiety vs underlying neurologic process continue losartan - states measures BP at home and consistently 130/90 or less prn hydralazine monitor (6) High cholesterol: continue statin (7) Insomnia: temazepam @ hs prn (8) Parkinson disease: continue sinemet (9) DVT prophylaxis: Lovenox Dispo: Plan to DC home PCP: Dr. Moore @ [facility], follows [facility] cards and neurology FULL CODE Admission and Anticipated Discharge Date Admission Date: October 15, 2020 Subjective Pt seen in follow up of transient amnesia/ TIA symptoms Currently pt is sitting up in chair, in NAD Reports he feels well and did not have any more episodes since being in the hospital Denies any weakness, numbness in extremities, no change in vision, overall he reports to feel well Also denies any fevers or chills, chest pain or shortness of breath Telemetry reviewed, patient has been in sinus rhythm Review of Systems Review of Systems: All systems reviewed & are unremarkable except as noted in HPI & below Constitutional: no fever and no chills Respiratory: no cough and no dyspnea Cardiovascular: no chest pain and no palpitations Gastrointestinal: no abdominal pain, no nausea and no vomiting Physical Exam Physical Exam: Constitutional: WD/WN, M, vitals as above, NAD, sitting up in chair, pleasant, conversing easily Head: Normocephalic, Atraumatic Eyes: PERRL, EOMI, conjunctivae normal, anicteric sclerae ENMT: external ear and nose normal, oropharynx normal Neck: trachea midline, no thyromegaly normal visual inspection Respiratory: normal respiratory effort, lungs clear to auscultation, no wheeze, rales, rhonchi. Normal insp/exp effort, no accessory muscle use Cardiovascular: RRR, no murmur, no edema Vessels: no JVD or carotid bruit Chest: normal inspection of chest Abdomen: normal bowel sounds, soft, nontender Musculoskeletal: no cyanosis or clubbing, extremities motor strength 5/5 Skin: no rashes, warm and dry normal turgor Neurologic: PERRL, EOMI, no face palsy, no dysarthria CN's II-XI intact bilaterally and moves all extremities, no sensory loss Psychiatric: A+Ox3, euthymic affect Results & Data Results & Data ([facility]) Vital Signs (Past 12 Hours) Vital Signs Temp Pulse Pulse Resp BP BP Pulse Ox 10/16/20 07:43 36.6 C 87 18 170/110 H 92 10/16/20 07:21 97 H 10/16/20 03:54 36.9 C 90 17 151/89 H 94 10/15/20 23:55 98 H 10/15/20 23:14 36.4 C L 85 18 153/97 H 93 Laboratory Results 10/16/20 10/16/20 10/16/20 Range/Units 07:26 07:26 07:26 WBC 6.14 (4.8-10.8) K/uL RBC 4.59 L (4.7-6.1) M/uL Hgb 15.1 (14.0-18.0) g/dL Hct 43.7 (42-52) % MCV 95.2 (80-100) fL MCH 32.9 (25-34) pg MCHC 34.6 (32-36) g/dL RDW Std Deviation 46.8 H (36.4-46.3) fL RDW Coeff of Nicole 13.5 (11.5-14.5) % Plt Count 223 (130-400) K/uL MPV 10.4 (7.4-10.4) fL Sodium 141 (136-145) mmol/L Potassium 4.0 (3.5-5.1) mmol/L Chloride 106 (98-107) mmol/L Carbon Dioxide 30 (21-32) mmol/L Anion Gap 5.0 (3-11) BUN 9 (7-18) mg/dl Creatinine 0.99 (0.6-1.4) mg/dl Est Cr Clr Drug Dosing 69.4 ml/min Est GFR ( Amer) 89.1 Est GFR (Non-Af Amer) 76.8 BUN/Creatinine Ratio 8.7 L (10-20) Glucose 87 (70-99) mg/dl Estimat Average Glucose 114 mg/dl Hemoglobin A1c 5.6 (4.5-5.6) % Calcium 9.5 (8.5-10.1) mg/dl Magnesium 2.2 (1.8-2.4) mg/dl Total Bilirubin 0.7 (0.2-1) mg/dl AST 84 H (15-37) U/L ALT 39 (12-78) U/L Alkaline Phosphatase 80 (45-117) U/L Total Protein 6.8 (6.4-8.2) gm/dl Albumin 3.5 (3.4-5.0) gm/dl Globulin 3.3 (2.5-4.0) gm/dl Albumin/Globulin Ratio 1.1 (0.9-2) Triglycerides 158 H (0-150) mg/dl Cholesterol 170 (0-200) mg/dl LDL Cholesterol, Calc 66 mg/dl VLDL Cholesterol, Calc 32 mg/dl HDL Cholesterol 72 mg/dl Cholesterol/HDL Ratio 2 Vitamin B12 (193-986) pg/ml RPR (Nonreactive) 10/15/20 10/15/20 Range/Units 14:33 14:33 WBC (4.8-10.8) K/uL RBC (4.7-6.1) M/uL Hgb (14.0-18.0) g/dL Hct (42-52) % MCV (80-100) fL MCH (25-34) pg MCHC (32-36) g/dL RDW Std Deviation (36.4-46.3) fL RDW Coeff of Nicole (11.5-14.5) % Plt Count (130-400) K/uL MPV (7.4-10.4) fL Sodium (136-145) mmol/L Potassium (3.5-5.1) mmol/L Chloride (98-107) mmol/L Carbon Dioxide (21-32) mmol/L Anion Gap (3-11) BUN (7-18) mg/dl Creatinine (0.6-1.4) mg/dl Est Cr Clr Drug Dosing ml/min Est GFR ( Amer) Est GFR (Non-Af Amer) BUN/Creatinine Ratio (10-20) Glucose (70-99) mg/dl Estimat Average Glucose mg/dl Hemoglobin A1c (4.5-5.6) % Calcium (8.5-10.1) mg/dl Magnesium (1.8-2.4) mg/dl Total Bilirubin (0.2-1) mg/dl AST (15-37) U/L ALT (12-78) U/L Alkaline Phosphatase (45-117) U/L Total Protein (6.4-8.2) gm/dl Albumin (3.4-5.0) gm/dl Globulin (2.5-4.0) gm/dl Albumin/Globulin Ratio (0.9-2) Triglycerides (0-150) mg/dl Cholesterol (0-200) mg/dl LDL Cholesterol, Calc mg/dl VLDL Cholesterol, Calc mg/dl HDL Cholesterol mg/dl Cholesterol/HDL Ratio Vitamin B12 532 (193-986) pg/ml RPR Nonreactive (Nonreactive) Medications Administered Current Inpatient Medications Acetaminophen (Acetaminophen 325 Mg Tab) 650 mg PO Q4H PRN PRN Reason: Pain or Fever Stop: 11/14/20 14:12 Al Hydrox/Mg Hydrox/Simethicone (Aluminum/Magnesium Susp 30 Ml Udc) 15 ml PO Q4H PRN PRN Reason: Dyspepsia Stop: 11/14/20 14:12 Aspirin (Aspirin 81 Mg Chew) 81 mg PO DAILY TONI Stop: 11/15/20 08:59 Last Admin: 10/16/20 08:08 Dose: 81 mg Documented by: Atorvastatin Calcium (Atorvastatin 40 Mg Tab) 40 mg PO DAILY TONI Stop: 11/15/20 08:59 Last Admin: 10/16/20 08:09 Dose: 40 mg Documented by: Carbidopa/Levodopa (Carbidopa/Levodopa 25/100mg Tab) 1 tab PO TID TONI Stop: 11/14/20 20:59 Last Admin: 10/16/20 14:02 Dose: 1 tab Documented by: Enoxaparin Sodium (Enoxaparin Inj 40 Mg/0.4 Ml Syr) 40 mg SQ Q24H TONI Stop: 11/14/20 21:59 Last Admin: 10/15/20 20:42 Dose: 40 mg Documented by: Fluticasone/Vilanterol (Fluticasone/Vilanterol 200/25mcg 14 Puffs/Inhaler) 1 puffs INH DAILY TONI Stop: 11/14/20 08:59 Last Admin: 10/16/20 08:10 Dose: 1 puffs Documented by: Folic Acid (Folic Acid 1 Mg Tab) 1 mg PO QAM TONI Stop: 11/14/20 14:12 Last Admin: 10/16/20 08:09 Dose: 1 mg Documented by: Hydralazine HCl (Hydralazine 10 Mg Tab) 10 mg PO Q8H PRN PRN Reason: hypertension Stop: 11/14/20 14:12 Lorazepam (Lorazepam 1 Mg Tab) 1 mg PO ONE PRN; Protocol PRN Reason: EtoH Withdrawal AWSS 6-10 Losartan Potassium (Losartan Potassium 50 Mg Tab) 50 mg PO DAILY [facility] Stop: 11/15/20 08:59 Last Admin: 10/16/20 08:09 Dose: 50 mg Documented by: Magnesium Hydroxide (Magnesium Hydroxide Susp 30 Ml Udc) 30 ml PO Q12H PRN PRN Reason: Constipation Stop: 11/14/20 14:12 Ondansetron HCl (Ondansetron Inj 2 Mg/Ml 2 Ml Vial) 4 mg IV Q6H PRN PRN Reason: Nausea Stop: 11/14/20 14:12 Pantoprazole Sodium (Pantoprazole 40 Mg Tab) 40 mg PO DAILY TONI Stop: 11/15/20 08:59 Last Admin: 10/16/20 08:09 Dose: 40 mg Documented by: Polyethylene Glycol (Polyethylene (Miralax) 17 Gm Pack) 17 gm PO DAILY PRN PRN Reason: Constipation Stop: 11/14/20 14:12 Temazepam (Temazepam 15 Mg Capsule) 15 mg PO HS PRN PRN Reason: Insomnia Stop: 11/14/20 14:12 Last Admin: 10/15/20 23:11 Dose: 15 mg Documented by: Thiamine HCl (Thiamine Hcl 100 Mg Tab) 100 mg PO QAM [facility] Stop: 11/14/20 14:12 Last Admin: 10/16/20 08:08 Dose: 100 mg Documented by: Tramadol HCl (Tramadol Hcl 50 Mg Tablet) 75 mg PO DAILY@1400 [facility] Stop: 11/14/20 13:59 Last Admin: 10/16/20 14:02 Dose: 75 mg Documented by: Tramadol HCl (Tramadol Hcl 50 Mg Tablet) 100 mg PO DAILY TONI Stop: 11/15/20 08:59 Last Admin: 10/16/20 08:12 Dose: 100 mg Documented by: Trazodone HCl (Trazodone Hcl 50 Mg Tab) 25 mg PO HS PRN PRN Reason: Insomnia Stop: 11/14/20 14:12 Last Admin: 10/15/20 23:11 Dose: 25 mg Documented by: (1) Altered mental status Altered mental status type: unspecified Qualified Code(s): R41.82 - Altered mental status, unspecified
[2020-10-16 08:01] LABS: Estimated Average Glucose 114 mg/dl; Hemoglobin A1C 5.6 % (4.5-5.6)
[2020-10-16] MEDS: CARBIDOPA/LEVODOPA 25/100MG TAB PO SCH ×2 (08:08→14:02)
[2020-10-16] MEDS: THIAMINE HCL 100 MG TAB PO SCH (08:08)
[2020-10-16] MEDS: FOLIC ACID 1 MG TAB PO SCH (08:09)
[2020-10-16] MEDS: FLUTICASONE/VILANTEROL 200/25MCG 14 PUFFS/INHALER INH SCH (08:10)
[2020-10-16 08:13] LABS: Albumin Level 3.5 gm/dl (3.4-5.0); BUN Creatinine Ratio 8.7 (10-20); Calcium 9.5 mg/dl (8.5-10.1); Creatinine Clr Calc Pharmacy 69.4 ml/min; Est GFR (African American) 89.1; Est GFR (Non-African American) 76.8; Magnesium 2.2 mg/dl (1.8-2.4)
[2020-10-16 08:18] LABS: Albumin Globulin Ratio 1.1 (0.9-2); Bilirubin,Total 0.7 mg/dl (0.2-1); Globulin 3.3 gm/dl (2.5-4.0); Total Protein 6.8 gm/dl (6.4-8.2)
[2020-10-16] MEDS ORDERED: ASPIRIN 81 MG CHEW PO SCH (09:00)
[2020-10-16] MEDS ORDERED: ATORVASTATIN 40 MG TAB PO SCH (09:00)
[2020-10-16] MEDS ORDERED: traMADol HCL 50 MG TABLET PO SCH (09:00)
[2020-10-16] MEDS ORDERED: LOSARTAN POTASSIUM 50 MG TAB PO SCH (09:00)
[2020-10-16] MEDS ORDERED: PANTOprazole 40 MG TAB PO SCH (09:00)
--- NOTE | 2020-10-16 09:31 | Electroencephalogram ---
EEG Procedure Note Date of Service October 16, 2020 Start / End Times Start Time: 651 End Time: 711 given Referring Physician Chloe Lou History Confusion with some amnesia urgency Home Medication List Medication Instructions Recorded Confirmed Type pantoprazole 40 mg tablet,delayed 40 mg PO DAILY 07/17/19 10/15/20 History release aspirin 81 mg PO DAILY 10/15/20 10/15/20 History atorvastatin 40 mg PO DAILY 10/15/20 10/15/20 History budesonide-formoterol [Symbicort] 1 puff INHALATION BID 10/15/20 10/15/20 History carbidopa-levodopa 1 tab PO TID 10/15/20 10/15/20 History losartan 50 mg PO DAILY 10/15/20 10/15/20 History temazepam 15 mg PO HS PRN 10/15/20 10/15/20 History tramadol 75 mg PO DAILY@1400 PRN 10/15/20 10/15/20 History tramadol 100 mg PO DAILY 10/15/20 10/15/20 History trazodone 25 mg PO HS PRN 10/15/20 10/15/20 History Inpatient Medication List Aspirin (Aspirin 81 Mg Chew) 81 mg PO DAILY TONI Stop: 11/15/20 08:59 Last Admin: 10/16/20 08:08 Dose: 81 mg Documented by: [id number] Atorvastatin Calcium (Atorvastatin 40 Mg Tab) 40 mg PO DAILY TONI Stop: 11/15/20 08:59 Last Admin: 10/16/20 08:09 Dose: 40 mg Documented by: [id number] Carbidopa/Levodopa (Carbidopa/Levodopa 25/100mg Tab) 1 tab PO TID TONI Stop: 11/14/20 20:59 Last Admin: 10/16/20 08:08 Dose: 1 tab Documented by: [id number] Admin: 10/15/20 20:42 Dose: 1 tab Documented by: [id number] Enoxaparin Sodium (Enoxaparin Inj 40 Mg/0.4 Ml Syr) 40 mg SQ Q24H TONI Stop: 11/14/20 21:59 Last Admin: 10/15/20 20:42 Dose: 40 mg Documented by: [id number] Fluticasone/Vilanterol (Fluticasone/Vilanterol 200/25mcg 14 Puffs/Inhaler) 1 puffs INH DAILY TONI Stop: 11/14/20 08:59 Last Admin: 10/16/20 08:10 Dose: 1 puffs Documented by: [id number] Admin: 10/15/20 15:57 Dose: 1 puffs Documented by: [id number] Folic Acid (Folic Acid 1 Mg Tab) 1 mg PO QAM TONI Stop: 11/14/20 14:12 Last Admin: 10/16/20 08:09 Dose: 1 mg Documented by: [id number] Admin: 10/15/20 15:57 Dose: 1 mg Documented by: [id number] Losartan Potassium (Losartan Potassium 50 Mg Tab) 50 mg PO DAILY TONI Stop: 11/15/20 08:59 Last Admin: 10/16/20 08:09 Dose: 50 mg Documented by: [id number] Pantoprazole Sodium (Pantoprazole 40 Mg Tab) 40 mg PO DAILY TONI Stop: 11/15/20 08:59 Last Admin: 10/16/20 08:09 Dose: 40 mg Documented by: [id number] Temazepam (Temazepam 15 Mg Capsule) 15 mg PO HS PRN PRN Reason: Insomnia Stop: 11/14/20 14:12 Last Admin: 10/15/20 23:11 Dose: 15 mg Documented by: [id number] Thiamine HCl (Thiamine Hcl 100 Mg Tab) 100 mg PO QAM TONI Stop: 11/14/20 14:12 Last Admin: 10/16/20 08:08 Dose: 100 mg Documented by: [id number] Admin: 10/15/20 15:57 Dose: 100 mg Documented by: [id number] Tramadol HCl (Tramadol Hcl 50 Mg Tablet) 75 mg PO DAILY@1400 TONI Stop: 11/14/20 13:59 Last Admin: 10/15/20 15:46 Dose: Not Given Documented by: [id number] Tramadol HCl (Tramadol Hcl 50 Mg Tablet) 100 mg PO DAILY TONI Stop: 11/15/20 08:59 Last Admin: 10/16/20 08:12 Dose: 100 mg Documented by: [id number] Trazodone HCl (Trazodone Hcl 50 Mg Tab) 25 mg PO HS PRN PRN Reason: Insomnia Stop: 11/14/20 14:12 Last Admin: 10/15/20 23:11 Dose: 25 mg Documented by: [id number] Discontinued Medications Carbidopa/Levodopa (Carbidopa/Levodopa 25/100mg Tab) 1 tab PO NOW STA Stop: 10/15/20 12:07 Last Admin: 10/15/20 13:00 Dose: 1 tab Documented by: [id number] Sodium Chloride (Nss 1000ml) 1,000 mls @ 999 mls/hr IV .Q1H1M ONE Stop: 10/15/20 10:40 Last Infusion: 10/15/20 11:18 Dose: 0 mls/hr Documented by: [id number] Admin: 10/15/20 10:02 Dose: 999 mls/hr Documented by: [id number] Ioversol (Optiray 320 125ml) 120 ml IV ONCE ONE Stop: 10/15/20 10:16 Last Admin: 10/15/20 10:15 Dose: 120 ml Documented by: [id number] Description This is a 21 electrode EEG with a single channel dedicated to limited EKG. The electrodes were placed in accordance with the International 10-20 syste This EEG was done as a bedside recording and is of excellent technical quality with no or few muscle or movement artifacts. Simultaneous video recording patient will behavior was obtained. Photic stimulation was performed. Drowsiness and light sleep not recorded. Under these conditions there is evidence for normal background rhythm in the alpha range of up to 12 Hz maximum frequency and 20 V maximum amplitude. This is symmetrical in maximum posterior head regions. Polymorphic mid to upper frequency low voltage theta activity is seen in symmetrical fashion over the central regions predominantly. Beta activity seen bifrontally. Photic stimulation provokes a modest driving response with no photo myogenic or photoparoxysmal components There is no evidence for potentially epileptogenic activity anytime during the waking tracing Interpretation This is a normal EEG during wakefulness Clinical Correlation This EEG is normal and reveals no evidence for focal generalized encephalopathy or for potential epileptogenic activity. Garry Vasquez MD
[2020-10-16] MEDS ORDERED: GADOBUTROL 65ML VIAL IV ONE (13:48)
--- NOTE | 2020-10-16 14:00 | Magnetic Resonance Report ---
MRI OF THE BRAIN WITHOUT AND WITH IV CONTRAST CLINICAL HISTORY: Acute change in mental status. Possible stroke. COMPARISON STUDY: CT scan dated 10/15/2020 TECHNIQUE: MRI of the brain was performed from the vertex to the skull base utilizing various T1 and T2 weighted sequences. Following the IV administration of 7 mL of Gadavist contrast, additional enhan aleida images were obtained. FINDINGS: Sagittal T1, axial diffusion, proton density and T2 weighted axial, coronal FLAIR, and pre and post a xial T1-weighted images were acquired. These were supplemented with post gadolinium coronal T1 weight ed images. No intra or extra-axial mass lesions are visualized. Axial diffusion-weighted images reveal no evidence of acute or subacute infarction. There is no evidence of ventricular dilatation. Proton density T2-weighted and FLAIR images reveal scattered foci of increased T2 signal within the w claudio matter, likely on a small vessel basis. There are no abnormal flow voids. There is no evidence of pathologic enhancement. IMPRESSION: 1. No acute intracranial findings 2. No evidence of acute or subacute infarction 3. No evidence of intracranial mass 4. Scattered foci of increased T2 and FLAIR signal within the white matter, likely small vessel ische hever basis. ACT 112: Negative or not required by law. Electronically signed by: Corey Garza M.D. 10/16/2020 1:59 PM
[2020-10-16] MEDS: traMADol HCL 50 MG TABLET PO SCH (14:02)
--- NOTE | 2020-10-16 15:42 | Discharge Summary ---
Date of Service October 16, 2020 Admission HPI Per Admitting Provider This is a 69-year-old male who has significant past medical history of SA node dysfunction status post pacemaker in 2014, HTN, HLD, asthma, GERD, Parkinson's who presents ED secondary to confusion x4 to 5 hours. He woke up this morning and he felt okay around 6:30 a.m. Gradually things started to feel funny and he was to report to work at 9am. Driving to work he realized he was more and more, "not right." He was having trouble remembering what he just did. He recalls events from yesterday and knows he had 4 beers yesterday as he had a, "date." He is recently but feels he has not had an recent stressor. He is having difficulty remembering his medications or his doctors. He denies recent illness, f/c/s, dizziness, lightheaded, syncope, BARNES, visual change, chest pain, sob, cough, URI sx, n/v/d, abdominal pain, change in urinary/bowel habits. Sx lasted ~ 7:30 a.m. and still feels confused but is slowly starting to recall. Known exposure to covid 1 month ago but no symptoms. He did receive covid vaccine, second dose 1 week ago. He did have a sore arm and 12hrs of flu like sx post vaccine. Sx feel similar to when he presented with bradycardia when he required pacer. Admission Exam Per Admitting Provider Constitutional: WD/WN, M, vitals as above, NAD, sitting up in bed, pleasant, conversing easily Head: Normocephalic, Atraumatic Eyes: PERRL, conjunctivae normal, anicteric sclerae ENMT: external ear and nose normal, oropharynx normal Neck: trachea midline, no thyromegaly normal visual inspection Respiratory: normal respiratory effort, lungs clear to auscultation, no wheeze, rales, rhonchi. Normal insp/exp effort, no accessory muscle use Cardiovascular: RRR, no murmur, no edema Vessels: no JVD or carotid bruit Chest: normal inspection of chest Abdomen: normal bowel sounds, soft, nontender, no hepatosplenomegaly Musculoskeletal: no cyanosis or clubbing, extremities motor strength 5/5 Skin: no rashes, warm and dry normal turgor Neurologic: PERRL, EOMI, accommodation nl, no face palsy, no dysarthria CN's II-XI intact bilaterally and moves all extremities Psychiatric: A+Ox3, decent recall, remembers president (states he looked it up), able to count backwards, euthymic affect Principal Diagnosis TIA/ transient amnesia/ AMS Hypertension Discharge Exam Constitutional: WD/WN, M, vitals as above, NAD, sitting up in chair, pleasant, conversing easily Head: Normocephalic, Atraumatic Eyes: PERRL, EOMI, conjunctivae normal, anicteric sclerae ENMT: external ear and nose normal, oropharynx normal Neck: trachea midline, no thyromegaly normal visual inspection Respiratory: normal respiratory effort, lungs clear to auscultation, no wheeze, rales, rhonchi. Normal insp/exp effort, no accessory muscle use Cardiovascular: RRR, no murmur, no edema Vessels: no JVD or carotid bruit Chest: normal inspection of chest Abdomen: normal bowel sounds, soft, nontender Musculoskeletal: no cyanosis or clubbing, extremities motor strength 5/5 Skin: no rashes, warm and dry normal turgor Neurologic: PERRL, EOMI, no face palsy, no dysarthria CN's II-XI intact bilaterally and moves all extremities, no sensory loss Psychiatric: A+Ox3, euthymic affect Discharge Data Allergies Allergy/AdvReac Type Severity Reaction Status Date / Time No Known Allergies Allergy Unverified 10/15/20 10:38 Consultations 10/15/20 10:46 ED Decision to Admit Stat 10/15/20 11:18 Consult Neurology Routine 10/15/20 14:13 Consult Case Management - Discharge Planning Routine 10/16/20 14:56 Burn CD for patient Stat Ordered Studies 10/15/20 09:39 CT angio head wo/w Stat IMPRESSION: 1. No acute intracranial findings. 2. No central vessel occlusion. No significant stenosis within the intracranial vessels. 3. Mild fusiform aneurysmal dilatation of the left internal carotid artery at the level of the skull base, as described above. CT angio neck with con Stat IMPRESSION: 1. No aneurysm, dissection, high-grade stenosis or proximal branch occlusion. 2. Additional findings as above. 10/16/20 07:42 MR brain wo/w con Routine IMPRESSION: 1. No acute intracranial findings 2. No evidence of acute or subacute infarction 3. No evidence of intracranial mass 4. Scattered foci of increased T2 and FLAIR signal within the white matter, likely small vessel ischemic basis. Hospital Course (1) Altered mental status: Transient amnesia/ TIA This is a 69-year-old male who has significant past medical history of SA node dysfunction status post pacemaker in 2013, HTN, HLD, asthma, GERD, Parkinson's who presents ED secondary to confusion x4 to 5 hours. Work up in ED mostly unrevealing. Patient was hemodynamically stable although modestly hypertensive and mildly tachycardic. 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 Patient with transient confusion that started at approximately 730 AM of admission. Feels it is improving but still has intermittent confusion, difficulty recalling events the morning of admision. Admitted to med telemetry telemetry reviewed - pt in sinus rhythm Consulted neurology - appreciate their recommendations for further imaging including MRI MRI recommended and obtained - IMPRESSION: 1. No acute intracranial findings 2. No evidence of acute or subacute infarction 3. No evidence of intracranial mass 4. Scattered foci of increased T2 and FLAIR signal within the white matter, likely small vessel ischemic basis. EEG obtained - no seizure-like activity noted Neuro checks while inpt pt/ot/st vit b12 - WNL, rpr - nonreactive ddx: possible TGA, CVA, alcohol misuse and withdrawal, Wernicke encephalopathy, vit b def, drug toxicity among others Neurology evaluated the pt - likely TIA, recommend to cont current sinemet LDL <70, cont. home statin cont. ASA Follow up w/ Dr. 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 - pt will need to follow up w/ vascular surgery as outpt images pushed to [place] via PACS system and CD to burnt for the pt as well (3) Sinus node dysfunction: s/p pacemaker in 2003 had pacer check 10/07 WNL, also had done in ED WNL (4) Alcohol abuse: 2-4 beers daily last drink last evening 4 beers thiamine, folic acid prn lorazepam and withdrawal protocol (5) High blood pressure: BP significantly elevated in ED, may be in setting of anxiety vs underlying neurologic process continue losartan - states measures BP at home and consistently 130/90 or less prn hydralazine monitor (6) High cholesterol: continue statin (7) Insomnia: temazepam @ hs prn (8) Parkinson disease: continue sinemet (9) DVT prophylaxis: Lovenox Total Time Total Time Spent Total Time Spent (In Minutes): 35 Total Time Includes: Examination of the Patient, Discharge Planning, Medication Reconciliation and Communication With Other Providers Discharge Plan Discharge Items Patient Disposition: Home - Self-Care Reason For Visit: CONFUSION Discharge Diagnosis: TIA/ transient amnesia/ AMS Hypertension Activity: Per Instructions section Non-emergency contact: Primary Care Provider and Neurologist Call non-emergency contact if: you have any medication questions and your symptoms worsen Follow-up/Referrals: Guillermo Moore MD [Primary Care Provider] - 10/29/20 1:20 pm Diet: Heart Healthy Addtl Attending Provider Instructions: Follow up with primary care doctor, the appointment was scheduled for you for 10/29/20. You will also need to follow-up with neurology, Dr. Johns, you will be contacted about the appointment. Recommend to monitor blood pressure at home, and write down your numbers. Make sure to bring the log of these numbers to your healthcare providers during your appointments. Your blood pressure medications may need to be further adjusted in the future. Radiology images were provided for you on discharge. It is recommended that you follow-up with vascular surgery as outpatient. This will be arranged for you by your health care providers. Pending Studies at Discharge: No Stand-Alone Forms: My [facility] [employer], Smoking Cessation Medications and DC Order Prescriptions: Continued pantoprazole [Protonix] 40 mg tablet,delayed release (DR/EC) 40 mg PO DAILY RF: 0 losartan 50 mg tablet 50 mg PO DAILY RF: 0 trazodone 50 mg tablet 25 mg PO HS PRN (Reason: Sleep) RF: 0 temazepam 15 mg capsule 15 mg PO HS PRN (Reason: Insomnia) RF: 0 carbidopa-levodopa 25-100 mg tablet 1 tab PO TID RF: 0 atorvastatin 40 mg tablet 40 mg PO DAILY RF: 0 aspirin 81 mg Tablet,Chewable 81 mg PO DAILY RF: 0 tramadol 50 mg tablet 100 mg PO DAILY RF: 0 tramadol 100 mg Tablet 75 mg PO DAILY@1400 PRN (Reason: pain) RF: 0 budesonide-formoterol [Symbicort] 160-4.5 mcg/actuation Hfa Aerosol Inhaler 1 puff INHALATION BID RF: 0 Discharge Orders: Discharge Order (Routine); Ordered 10/16/20 Ordered By: Navin Lr/Other Patient Handouts: Functional Movement Disorders, Exercise for Parkinson's Disease, Increasing Your Knee's Range of Motion, Shoulder Exercises: Internal Rotation Admission Data Admit Date/Time: 10/15/20 11:18 Attending Provider: Navin Cook Admit Provider: Jose Sanderson Primary Care Provider: Guillermo Moore Other Providers: Angelina Alicea ; Jose Sanderson
== END 2020-10-16 16:39 | disposition home or self-care (01) ==
LOC: 2W 09:08 → ED 09:08 → SUATTDRO 11:18 → 2W 13:05

== ENCOUNTER 2021-03-25 17:31 | Inpatient (IN) ==
[2021-03-25] MEDS ORDERED: LORazepam 0.5 MG/1 ML VIAL IV STA (18:07)
[2021-03-25] MEDS ORDERED: MULTI-VITAMIN INFUSION 10 ML, THIAMINE HCL 100 MG, FOLIC ACID 1 MG in SODIUM CHLORIDE 0... IV ONE (18:07)
[2021-03-25] MEDS ORDERED: LORazepam 1 MG/2 ML VIAL IV STA ×2 (18:24→19:44)
[2021-03-25 18:45] LABS: Basophils # (auto) 0.02 K/uL (0-0.2); Basophils % (auto) 0.2 %; Eosinophils # (auto) 0.05 K/uL (0-0.5); Eosinophils % (auto) 0.6 %; Hematocrit (blood only) 43.9 % (42-52); Hemoglobin 15.2 g/dL (14.0-18.0); Immature Granulocytes # (auto) 0.03 K/uL (0.00-0.02); Immature Granulocytes % (auto) 0.4 %; Lymphocytes # (auto) 1.42 K/uL (1.2-3.4); Mean Corpuscular Hemoglobin 32.5 pg (25-34); Mean Corpuscular Hgb Conc 34.6 g/dL (32-36); Mean Platelet Volume 9.7 fL (7.4-10.4); Monocytes # (auto) 0.79 K/uL (0.11-0.59); Monocytes % (auto) 9.4 %; Neutrophils # (auto) 6.05 K/uL (1.4-6.5); Neutrophils % (auto) 72.4 %; Platelet Count 252 K/uL (130-400); RDW Coefficient of Variation 13.5 % (11.5-14.5); RDW Standard Deviation 46.6 fL (36.4-46.3); Red Blood Count 4.67 M/uL (4.7-6.1); White Blood Count 8.36 K/uL (4.8-10.8)
[2021-03-25 18:56] LABS: Partial Thromboplastin Time 27.1 Seconds (21.0-31.0); Prothrombin Time 9.7 Seconds (9.0-12.0)
[2021-03-25 19:06] LABS: Alanine Aminotransferase 33 U/L (12-78); Albumin Level 3.9 gm/dl (3.4-5.0); Aspartate Aminotransferase 55 U/L (15-37); BUN Creatinine Ratio 13.6 (10-20); Bilirubin Direct 0.5 mg/dl (0-0.2); Blood Urea Nitrogen 12 mg/dl (7-18); Calcium 8.7 mg/dl (8.5-10.1); Carbon Dioxide 22 mmol/L (21-32); Chloride 97 mmol/L (98-107); Est GFR (African American) 100.6 ml/min; Est GFR (Non-African American) 86.8 ml/min; Glucose 99 mg/dl (70-99); Magnesium 2.4 mg/dl (1.8-2.4); Potassium 3.6 mmol/L (3.5-5.1); Sodium 128 mmol/L (136-145)
[2021-03-25 19:09] LABS: Alkaline Phosphatase 88 U/L (45-117); Bilirubin,Total 1.3 mg/dl (0.2-1); Total Protein 7.1 gm/dl (6.4-8.2)
[2021-03-25 19:11] LABS: Lipase 77 U/L (73-393); Troponin I < 0.015 ng/ml (0-0.045)
--- NOTE | 2021-03-25 19:14 | XRay Report ---
XR chest 1V portable CLINICAL HISTORY: ams etoh parkinson COMPARISON STUDY: October 15, 2020 FINDINGS: No pneumothorax. No pleural effusion. No large infiltrates or consolidative lesions are seen. Previously seen nodularity within bilateral b asis appear slightly less conspicuous however there is calcified nodule projects into anatomical angel on of the left costophrenic angle which is unchanged since prior study. Cardiomediastinal silhouette is within normal limits in size. No significant pulmonary vascular congestion.. Aorta is tortuous. Osseous structures: Degenerative changes of the spine. Stable position of dual-lead left-sided pacemaker with battery pack partially obscuring left lung par enchyma. IMPRESSION: 1. No large infiltrates or consolidative lesions are seen. Previously seen patchy nodular opacities within bilateral basis are less conspicuous since prior study. Please correlate above-mentioned findi ngs with prior history. ACT 112: Negative or not required by law. The above report was generated using voice recognition software. It may contain grammatical, syntax o r spelling errors. Electronically signed by: Alyce Diaz DO 03/25/2021 7:12 PM
--- NOTE | 2021-03-25 19:18 | CT Scan Report ---
CT head/brain wo con CLINICAL HISTORY: ams etoh parkinson COMPARISON STUDY: October 15, 2020 TECHNIQUE: Axial CT of the brain is performed from the vertex to the skull base. IV contrast was not administered for this examination. A dose lowering technique was utilized adhering to the principles of ALARA. CT DOSE: FINDINGS: No intra or extra-axial mass lesions are visualized. There is no CT evidence of acute cortical infarc tion. There is no evidence of midline shift. There is no acute hemorrhage. No acute depressed calvar ial fractures are visualized. There are patchy white matter hypodensities likely on a small vessel basis. There is no evidence of pathologic ventricular dilatation. There is no evidence of acute sinusitis IMPRESSION: No acute intracranial findings ACT 112: Negative or not required by law. The above report was generated using voice recognition software. It may contain grammatical, syntax o r spelling errors. Electronically signed by: Alyce Diaz DO 03/25/2021 7:17 PM
--- NOTE | 2021-03-25 19:34 | CT Scan Report ---
CT OF THE CERVICAL SPINE CLINICAL HISTORY: ams etoh parkinson COMPARISON STUDY: October 15, [address] neck [address] DOSE: 1057.28 mGy.cm TECHNIQUE: CT scan of the cervical spine was performed from the skull base to the thoracic inlet. Terri ges are reviewed in the axial, sagittal, and coronal planes. IV contrast was not administered for thi s examination. A dose lowering technique was utilized adhering to the principles of ALARA. FINDINGS: The visualized portions of the lung apices reveal no evidence of pneumothorax. The prevertebral soft tissues are normal. No acute fracture deformity visualized. Facet joints are a ligned. There is reverse of normal cervical lordosis centered at at C3-C4 level. Mild anterolisthesis of C2 on C3 is again seen and unchanged since prior. Mild central canal stenosis is seen at C3-C4, C5-C6 levels and associated with multilevel neural fora raúl stenosis.. There is mild cervical dextroscoliosis which is new since prior study and associated with severe mult ilevel intervertebral disc space narrowing, subchondral sclerosis and posterior osteophytes. IMPRESSION: 1. No definite acute fracture or traumatic malalignment is seen. 2. Redemonstration of mild anterolisthesis of C2 on C3. 3. Multilevel severe degenerative changes of the spine with interval development of the mild right d extroscoliosis. 4. Few areas of central canal and neural foraminal stenosis. ACT 112: Negative or not required by law. The above report was generated using voice recognition software. It may contain grammatical, syntax o r spelling errors. Electronically signed by: Alyce Diaz DO 03/25/2021 7:33 PM
[2021-03-25 19:55] LABS: Lyme Ab IgG w/WB Rflx Negative (Negative)
[2021-03-25 20:03] LABS: Lyme Ab IgM w/WB Rflx Equivocal (Negative)
[2021-03-25 20:15] LABS: Appearance Urine Clear (Clear); Bilirubin Urine Negative (Negative); Blood Urine Negative (Negative); Color Urine Yellow; Glucose Urine UA Negative (Negative); Ketones Urine 1+ (Negative); Leukocyte Esterase Urine Negative (Negative); Nitrite Urine Negative (Negative); Protein Urine Negative (Negative); Specific Gravity Urine 1.009 (1.000-1.030); Urobilinogen Urine Negative (Negative)
--- NOTE | 2021-03-25 20:22 | Emergency Department Note ---
History of Present Illness General Chief complaint: Detox Request Stated complaint: AFRAID OF ALCOHOL WITHDRAWAL Time Seen by Provider: 03/25/21 18:07 Source: patient and family History of Present Illness Provider complaint: Alcohol withdrawal Onset (ago): day(s) 1 Associated symptoms: no confusion, no chest pain, no cough, no diaphoresis, no fever/chills, no headaches or no nausea/vomiting 70-year-old male presents emergency department for alcohol withdrawal. Patient is a retired physician and presents emergency department with his son-in-law who is also a physician as well as his daughter who is a nurse. The patient states he has a long history of alcohol abuse. He states he wishes to quit drinking. He states he usually drinks a sixpack of beer a day. He states he drank 1 pint of vodka yesterday and decided he wanted to quit drinking so has not drank since yesterday. The family reports that the patient does have multiple falls. They state he lives alone and they are moving soon and they want him to get treatment for his alcoholism as no one will be there to help look after him. The daughter also states the patient has a cardiac history. Patient also has a history of Parkinson's. Patient states he feels very anxious and tremulous. No suicidal or homicidal ideation. Home Medications Medication Instructions Recorded Confirmed Type pantoprazole 40 mg tablet,delayed 40 mg PO DAILY 07/17/19 03/25/21 History release (Protonix) aspirin 81 mg chewable tablet 81 mg PO DAILY 10/15/20 03/25/21 History atorvastatin 40 mg tablet 40 mg PO DAILY 10/15/20 03/25/21 History budesonide-formoterol HFA 160 1 puff INHALATION BID 10/15/20 03/25/21 History mcg-4.5 mcg/actuation aerosol inhaler (Symbicort) carbidopa 25 mg-levodopa 100 mg 1 tab PO TID 10/15/20 03/25/21 History tablet losartan 50 mg tablet 50 mg PO DAILY 10/15/20 03/25/21 History temazepam 15 mg capsule 15 mg PO HS PRN 10/15/20 03/25/21 History tramadol 100 mg tablet 75 mg PO DAILY@1400 PRN 10/15/20 03/25/21 History tramadol 50 mg tablet 100 mg PO DAILY 10/15/20 03/25/21 History amlodipine 5 mg tablet 5 mg PO DAILY 03/25/21 03/25/21 History Allergies Allergy/AdvReac Type Severity Reaction Status Date / Time No Known Allergies Allergy Verified 03/25/21 19:04 Past Med/Surg History Medical History Asthma BPH loc w urin obs/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 High blood pressure High cholesterol Hypogonadism Insomnia Low testosterone Male erectile disorder Pacemaker Parkinson disease Surgical History History of arthroscopic knee surgery History of arthroscopy of shoulder b/l History of hemorrhoidectomy History of pacemaker History of penile implant History of transurethral resection of prostate History of vasectomy Family History Father Coronary heart disease Pacemaker Social History Smoking Status: Never smoker Tobacco Type: Cigarettes Hx Alcohol Use: Yes Alcohol type: beer Alcohol Intake Frequency Comment: 2-4 beers daily Hx Substance Use: No Preferred Language: Divehi Communication Ability: Effective Beliefs That Will Affect Care: None marital status: Current Living Situation: Alone Feels Safe at Home: Yes Assistive Devices: None Review of Systems A total of 10 systems reviewed and were otherwise negative Physical Exam Vital Signs Vital Signs - 24 hr 03/25/21 17:49 03/25/21 18:00 03/25/21 19:00 Temperature 37 C Temperature Source Temporal Artery Scan Pulse Rate 108 H 107 H Pulse Rate from SpO2 Sensor 108 H Respiratory Rate 20 17 18 Blood Pressure 142/87 H 152/93 H 138/89 Blood Pressure Mean 105 112 105 Blood Pressure Position Sitting Pulse Oximetry 95 99 99 Oxygen Delivery Method Room Air Room Air Room Air Sepsis Recent Fever Within 48 Hours No Sepsis New/Unexplained Change in Mental Status No Sepsis Action Taken by Nursing No Action Required 03/25/21 19:12 Temperature Temperature Source Pulse Rate 105 H Pulse Rate from SpO2 Sensor Respiratory Rate 19 Blood Pressure Blood Pressure Mean Blood Pressure Position Pulse Oximetry 97 Oxygen Delivery Method Room Air Sepsis Recent Fever Within 48 Hours Sepsis New/Unexplained Change in Mental Status Sepsis Action Taken by Nursing Physical Exam GENERAL: He is oriented to person, place, and time. He appears well-developed and well-nourished. He does not appear distressed. HENT: Exam performed. - Head: Normocephalic and atraumatic. - Right Ear: External ear normal. No mastoid tenderness. - Left Ear: External ear normal. No mastoid tenderness. - Mouth/Throat: The oropharynx is clear and moist. No trismus in the jaw. No dental abscesses or uvula swelling. No oropharyngeal exudate or tonsillar abscesses. EYES: Conjunctivae and EOM are normal. Pupils are equal, round, and reactive to light. Right eye exhibits no discharge. Left eye exhibits no discharge. No scleral icterus. NECK: Normal range of motion. Neck supple. No JVD present. No spinous process tenderness present. No carotid bruit present. No rigidity. No tracheal deviation and normal range of motion present. No Brudzinski's sign and no Kernig's sign noted. CV: Normal rate, regular rhythm, normal heart sounds and intact distal pulses. There is no peripheral edema. Palpable radial pulses bue. PULM/CHEST: Effort normal and breath sounds normal. No respiratory distress. No stridor. He has no wheezes. He has no rales. - Chest Wall: He exhibits no tenderness. ABD: The abdomen is soft. Bowel sounds are normal. He has no distension. No mass is present. There is no tenderness. There is no rebound, no guarding, no Peguero's sign and no tenderness at McBurney's point. Rovsig negative. MUSC/SKEL: Normal range of motion. There is no peripheral edema, tenderness or deformity. LYMPH: No cervical adenopathy. NEURO: He is alert and oriented to person, place, and time. He has normal strength. No cranial nerve deficit or sensory deficit. Coordination and gait normal. GCS eye subscore is 4. GCS verbal subscore is 5. GCS motor subscore is 6. Cerebellar tests wnl. Tremor of the left upper extremity. SKIN: Skin is warm and dry. He is not diaphoretic. PSYCH: No suicidal or homicidal ideation. Course Course 1806: The patient was evaluated in room C10. A complete history and physical exam was performed Cardiac monitoring: An order was placed for continuous cardiac monitoring. The monitor shows a rate of 105 with sinus tachycardia rhythm. 1940: Vital signs stable. Labs and imaging within normal limits. Patient is required multiple doses of Ativan here to help his tremor which is most likely due to the alcohol withdrawal. Patient given banana bag. Patient will be admitted to the [facility] hospitalist team for alcohol withdrawal. Discussed case with Dr. Powers who will evaluate the patient for admission. Administered Medications Discontinued Medications Multivitamins 10 ml/ Thiamine HCl 100 mg/ Folic Acid 1 mg/Sodium Chloride 1,011.2 mls @ 1,011.2 mls/hr IV .Q1H ONE Stop: 03/25/21 19:06 Last Infusion: 03/25/21 19:44 Dose: 0 mls/hr Documented by: [id number] Admin: 03/25/21 18:44 Dose: 1,011.2 mls/hr Documented by: [id number] Lorazepam (Ativan) 0.5 mg in 1 mls @ 1 mls/min IV NOW STA Stop: 03/25/21 18:08 Last Admin: 03/25/21 18:31 Dose: Not Given Documented by: [id number] Lorazepam (Ativan) 1 mg in 2 mls @ 2 mls/min IV NOW STA Stop: 03/25/21 18:25 Last Admin: 03/25/21 19:24 Dose: 2 mls/min Documented by: [id number] Lorazepam (Ativan) 1 mg in 2 mls @ 2 mls/min IV NOW STA Stop: 03/25/21 19:45 Last Admin: 03/25/21 20:03 Dose: 2 mls/min Documented by: [id number] Medical Decision Making Laboratory Data Result diagrams: 03/25/21 18:31 03/25/21 18:31 Lab Results 03/25/21 03/25/21 03/25/21 Range/Units 18:31 18:31 18:31 WBC 8.36 (4.8-10.8) K/uL RBC 4.67 L (4.7-6.1) M/uL Hgb 15.2 (14.0-18.0) g/dL Hct 43.9 (42-52) % MCV 94.0 (80-100) fL MCH 32.5 (25-34) pg MCHC 34.6 (32-36) g/dL RDW Std Deviation 46.6 H (36.4-46.3) fL RDW Coeff of Nicole 13.5 (11.5-14.5) % Plt Count 252 (130-400) K/uL MPV 9.7 (7.4-10.4) fL Immature Gran % (Auto) 0.4 % Neut % (Auto) 72.4 % Lymph % (Auto) 17.0 % [place] % (Auto) 9.4 % Eos % (Auto) 0.6 % Baso % (Auto) 0.2 % Neut # (Auto) 6.05 (1.4-6.5) K/uL Lymph # (Auto) 1.42 (1.2-3.4) K/uL [place] # (Auto) 0.79 H (0.11-0.59) K/uL Eos # (Auto) 0.05 (0-0.5) K/uL Baso # (Auto) 0.02 (0-0.2) K/uL Immature Gran # (Auto) 0.03 H (0.00-0.02) K/uL PT 9.7 (9.0-12.0) Seconds INR 1.0 (0.9-1.1) APTT 27.1 (21.0-31.0) Seconds PTT Ratio 1.0 Sodium (136-145) mmol/L Potassium (3.5-5.1) mmol/L Chloride (98-107) mmol/L Carbon Dioxide (21-32) mmol/L Anion Gap (3-11) BUN (7-18) mg/dl Creatinine (0.6-1.4) mg/dl Est Cr Clr Drug Dosing Est GFR ( Amer) ml/min Est GFR (Non-Af Amer) ml/min BUN/Creatinine Ratio (10-20) Glucose (70-99) mg/dl Calcium (8.5-10.1) mg/dl Magnesium (1.8-2.4) mg/dl Total Bilirubin (0.2-1) mg/dl Direct Bilirubin (0-0.2) mg/dl AST (15-37) U/L ALT (12-78) U/L Alkaline Phosphatase (45-117) U/L Troponin I (0-0.045) ng/ml Total Protein (6.4-8.2) gm/dl Albumin (3.4-5.0) gm/dl Lipase (73-393) U/L Urine Color Urine Appearance (Clear) Urine pH (4.5-7.5) Ur Specific [place] (1.000-1.030) Urine Protein (Negative) Urine Glucose (UA) (Negative) Urine Ketones (Negative) Urine Blood (Negative) Urine Nitrite (Negative) Urine Bilirubin (Negative) Urine Urobilinogen (Negative) Ur Leukocyte Esterase (Negative) Ethyl Alcohol mg/dL (0-3) mg/dl Lyme Disease IgG Ab Negative (Negative) Lyme Disease IgM Ab Equivocal A (Negative) COVID-19 Eval Order 03/25/21 03/25/21 03/25/21 Range/Units 18:31 18:31 18:31 WBC (4.8-10.8) K/uL RBC (4.7-6.1) M/uL Hgb (14.0-18.0) g/dL Hct (42-52) % MCV (80-100) fL MCH (25-34) pg MCHC (32-36) g/dL RDW Std Deviation (36.4-46.3) fL RDW Coeff of Nicole (11.5-14.5) % Plt Count (130-400) K/uL MPV (7.4-10.4) fL Immature Gran % (Auto) % Neut % (Auto) % Lymph % (Auto) % [place] % (Auto) % Eos % (Auto) % Baso % (Auto) % Neut # (Auto) (1.4-6.5) K/uL Lymph # (Auto) (1.2-3.4) K/uL [place] # (Auto) (0.11-0.59) K/uL Eos # (Auto) (0-0.5) K/uL Baso # (Auto) (0-0.2) K/uL Immature Gran # (Auto) (0.00-0.02) K/uL PT (9.0-12.0) Seconds INR (0.9-1.1) APTT (21.0-31.0) Seconds PTT Ratio Sodium 128 L (136-145) mmol/L Potassium 3.6 (3.5-5.1) mmol/L Chloride 97 L (98-107) mmol/L Carbon Dioxide 22 (21-32) mmol/L Anion Gap 9.0 (3-11) BUN 12 (7-18) mg/dl Creatinine 0.87 (0.6-1.4) mg/dl Est Cr Clr Drug Dosing Not Reportable Est GFR ( Amer) 100.6 ml/min Est GFR (Non-Af Amer) 86.8 ml/min BUN/Creatinine Ratio 13.6 (10-20) Glucose 99 (70-99) mg/dl Calcium 8.7 (8.5-10.1) mg/dl Magnesium 2.4 (1.8-2.4) mg/dl Total Bilirubin 1.3 H (0.2-1) mg/dl Direct Bilirubin 0.5 H (0-0.2) mg/dl AST 55 H (15-37) U/L ALT 33 (12-78) U/L Alkaline Phosphatase 88 (45-117) U/L Troponin I < 0.015 (0-0.045) ng/ml Total Protein 7.1 (6.4-8.2) gm/dl Albumin 3.9 (3.4-5.0) gm/dl Lipase 77 (73-393) U/L Urine Color Urine Appearance (Clear) Urine pH (4.5-7.5) Ur Specific [place] (1.000-1.030) Urine Protein (Negative) Urine Glucose (UA) (Negative) Urine Ketones (Negative) Urine Blood (Negative) Urine Nitrite (Negative) Urine Bilirubin (Negative) Urine Urobilinogen (Negative) Ur Leukocyte Esterase (Negative) Ethyl Alcohol mg/dL < 3.0 (0-3) mg/dl Lyme Disease IgG Ab (Negative) Lyme Disease IgM Ab (Negative) COVID-19 Eval Order 03/25/21 03/25/21 Range/Units 19:11 20:00 WBC (4.8-10.8) K/uL RBC (4.7-6.1) M/uL Hgb (14.0-18.0) g/dL Hct (42-52) % MCV (80-100) fL MCH (25-34) pg MCHC (32-36) g/dL RDW Std Deviation (36.4-46.3) fL RDW Coeff of Nicole (11.5-14.5) % Plt Count (130-400) K/uL MPV (7.4-10.4) fL Immature Gran % (Auto) % Neut % (Auto) % Lymph % (Auto) % [place] % (Auto) % Eos % (Auto) % Baso % (Auto) % Neut # (Auto) (1.4-6.5) K/uL Lymph # (Auto) (1.2-3.4) K/uL [place] # (Auto) (0.11-0.59) K/uL Eos # (Auto) (0-0.5) K/uL Baso # (Auto) (0-0.2) K/uL Immature Gran # (Auto) (0.00-0.02) K/uL PT (9.0-12.0) Seconds INR (0.9-1.1) APTT (21.0-31.0) Seconds PTT Ratio Sodium (136-145) mmol/L Potassium (3.5-5.1) mmol/L Chloride (98-107) mmol/L Carbon Dioxide (21-32) mmol/L Anion Gap (3-11) BUN (7-18) mg/dl Creatinine (0.6-1.4) mg/dl Est Cr Clr Drug Dosing Est GFR ( Amer) ml/min Est GFR (Non-Af Amer) ml/min BUN/Creatinine Ratio (10-20) Glucose (70-99) mg/dl Calcium (8.5-10.1) mg/dl Magnesium (1.8-2.4) mg/dl Total Bilirubin (0.2-1) mg/dl Direct Bilirubin (0-0.2) mg/dl AST (15-37) U/L ALT (12-78) U/L Alkaline Phosphatase (45-117) U/L Troponin I (0-0.045) ng/ml Total Protein (6.4-8.2) gm/dl Albumin (3.4-5.0) gm/dl Lipase (73-393) U/L Urine Color Yellow Urine Appearance Clear (Clear) Urine pH 6.0 (4.5-7.5) Ur Specific [place] 1.009 (1.000-1.030) Urine Protein Negative (Negative) Urine Glucose (UA) Negative (Negative) Urine Ketones 1+ H (Negative) Urine Blood Negative (Negative) Urine Nitrite Negative (Negative) Urine Bilirubin Negative (Negative) Urine Urobilinogen Negative (Negative) Ur Leukocyte Esterase Negative (Negative) Ethyl Alcohol mg/dL (0-3) mg/dl Lyme Disease IgG Ab (Negative) Lyme Disease IgM Ab (Negative) COVID-19 Eval Order Covid19 at [facility] Imaging Data Radiologist's Impression: Head CT 03/25/21 18:07 CT head/brain wo con CLINICAL HISTORY: ams etoh parkinson COMPARISON STUDY: October 15, 2020 TECHNIQUE: Axial CT of the brain is performed from the vertex to the skull base. IV contrast was not administered for this examination. A dose lowering technique was utilized adhering to the principles of ALARA. CT DOSE: FINDINGS: No intra or extra-axial mass lesions are visualized. There is no CT evidence of acute cortical infarction. There is no evidence of midline shift. There is no acute hemorrhage. No acute depressed calvarial fractures are visualized. There are patchy white matter hypodensities likely on a small vessel basis. There is no evidence of pathologic ventricular dilatation. There is no evidence of acute sinusitis IMPRESSION: No acute intracranial findings ACT 112: Negative or not required by law. The above report was generated using voice recognition software. It may contain grammatical, syntax or spelling errors. Electronically signed by: Alyce Diaz DO 03/25/2021 7:[address] 03/25/21 18:08 CT OF THE CERVICAL SPINE CLINICAL HISTORY: ams etoh parkinson COMPARISON STUDY: October 15, [address] CTA of the neck CT DOSE: 1057.28 mGy.cm TECHNIQUE: CT scan of the cervical spine was performed from the skull base to the thoracic inlet. Images are reviewed in the axial, sagittal, and coronal planes. IV contrast was not administered for this examination. A dose lowering technique was utilized adhering to the principles of ALARA. FINDINGS: The visualized portions of the lung apices reveal no evidence of pneumothorax. The prevertebral soft tissues are normal. No acute fracture deformity visualized. Facet joints are aligned. There is reverse of normal cervical lordosis centered at at C3-C4 level. Mild anterolisthesis of C2 on C3 is again seen and unchanged since prior. Mild central canal stenosis is seen at C3-C4, C5-C6 levels and associated with multilevel neural foraminal stenosis.. There is mild cervical dextroscoliosis which is new since prior study and associated with severe multilevel intervertebral disc space narrowing, subchondral sclerosis and posterior osteophytes. IMPRESSION: 1. No definite acute fracture or traumatic malalignment is seen. 2. Redemonstration of mild anterolisthesis of C2 on C3. 3. Multilevel severe degenerative changes of the spine with interval dev elopment of the mild right dextroscoliosis. 4. Few areas of central canal and neural foraminal stenosis. ACT 112: Negative or not required by law. The above report was generated using voice recognition software. It may contain grammatical, syntax or spelling errors. Electronically signed by: Alyce Diaz DO 03/25/2021 7:33 PM Chest X-Ray 03/25/21 18:08 XR chest 1V portable CLINICAL HISTORY: ams etoh parkinson COMPARISON STUDY: October 15, 2020 FINDINGS: No pneumothorax. No pleural effusion. No large infiltrates or consolidative lesions are seen. Previously seen nodularity within bilateral basis appear slightly less conspicuous however there is calcified nodule projects into anatomical region of the left costophrenic a ngle which is unchanged since prior study. Cardiomediastinal silhouette is within normal limits in size. No significant pulmonary vascular congestion.. Aorta is tortuous. Osseous structures: Degenerative changes of the spine. Stable position of dual-lead left-sided pacemaker with battery pack partially obscuring left lung parenchyma. IMPRESSION: 1. No large infiltrates or consolidative lesions are seen. Previously seen patchy nodular opacities within bilateral basis are less conspicuous since prior study. Please correlate above-mentioned findings with prior history. ACT 112: Negative or not required by law. The above report was generated using voice recognition software. It may contain grammatical, syntax or spelling errors. Electronically signed by: Alyce Diaz DO 03/25/2021 7:12 PM ECG Data Indication: + toxicologic Rate (beats per minute): 103 Rhythm: + sinus tachycardia ECG Intervals/blocks: + Normal QRS, + Normal MN and + Normal QT-c ECG ST segments: + Normal ST segments [facility] Narrative 180: The patient was evaluated in room C10. A complete history and physical e xam was performed Cardiac monitoring: An order was placed for continuous cardiac monitoring. The monitor shows a rate of 105 with sinus tachycardia rhythm. 1940: Vital signs stable. Labs and imaging within normal limits. Patient is required multiple doses of Ativan here to help his tremor which is most likely due to the alcohol withdrawal. Patient given banana bag. Patient will be admitted to the [facility]ist team for alcohol withdrawal. Discussed case with Dr. Powers who will evaluate the patient for admission. Impression & Plan Alcohol dependence with withdrawal Discharge Plan Visit Data Chief Complaint: Detox Request Stated Complaint: AFRAID OF ALCOHOL WITHDRAWAL ED Provider: Buddy Paez Discharge Problem: Alcohol dependence with withdrawal Patient Disposition: Admitted As Inpatient Forms Stand Alone Forms: [facility], Suicide Prevention Resources Prescriptions Prescriptions: No Action pantoprazole [Protonix] 40 mg tablet,delayed release (DR/EC) 40 mg PO DAILY RF: 0 losartan 50 mg tablet 50 mg PO DAILY RF: 0 temazepam 15 mg capsule 15 mg PO HS PRN (Reason: Insomnia) RF: 0 carbidopa-levodopa 25-100 mg tablet 1 tab PO TID RF: 0 atorvastatin 40 mg tablet 40 mg PO DAILY RF: 0 aspirin 81 mg Tablet,Chewable 81 mg PO DAILY RF: 0 tramadol 50 mg tablet 100 mg PO DAILY RF: 0 tramadol 100 mg Tablet 75 mg PO DAILY@1400 PRN (Reason: pain) RF: 0 budesonide-formoterol [Symbicort] 160-4.5 mcg/actuation Hfa Aerosol Inhaler 1 puff INHALATION BID RF: 0 amlodipine 5 mg tablet 5 mg PO DAILY RF: 0 Referrals Referrals: Guillermo Moore MD [Primary Care Provider] -
[2021-03-25] MEDS ORDERED: GABAPENTIN 600 MG TAB PO STA (20:37)
[2021-03-25] MEDS ORDERED: POTASSIUM CHLORIDE CRTAB 20 MEQ TABCR PO STA (20:37)
--- NOTE | 2021-03-25 20:38 | History & Physical Report ---
Date of Service March 25, 2021 Assessment & Plan (1) Alcohol dependence with withdrawal: Plan: Hyponatremia possibly secondary to alcohol intake SA node dysfunction status post PPM hypertension, slightly elevated hyperlipidemia on statin Rx Parkinson's disease as per records, at baseline Alcoholic hepatitis, good prognosis with Maddrey's DF score of -2.4 points asthma, stable past tobacco abuse chronic pain on narcotics Medical telemetry SUZY S, DT precautions Careful correction of sodium, hyponatremia work-up May need Nephrology consultation Oxycodone in place of patient's tramadol given potential lowering of seizure threshold with DrPriscila Medication DVT prophylaxis. Lovenox Full code Patient son-in-law requesting updates from providers. Dr. Esa Moreno, contact #[phone]. Text document was generated using [employer] voice recognition software. It may contain grammatical or spelling errors. Kindly contact undersigned for clarification of any documentation item in question. History of Present Illness Chief Complaint: Alcohol withdrawal Primary Care Provider: Guillermo Moore MD History obtained from patient, family, and records. Medical history significant for SA node dysfunction status post PPM, hypertension, hyperlipidemia, GERD, Parkinson's disease as per records, asthma, alcohol abuse, past tobacco abuse, chronic pain on narcotics. Last confinement September 2020 for TIA. Patient decided to quit alcohol last night. Woke up this morning feeling funny. No chest pain, no S OB. More tremulous than usual. Patient worried about alcohol withdrawal. No prior history of alcohol withdrawal seizures or intubation for alcohol withdrawal. Patient brought by family to the ER. Medical History as above Surgical History : PPM, shoulder surgeries, hemorrhoidectomy, knee surgery, vasectomy Family History : Heart disease Personal/Social history : Past tobacco abuse, alcohol abuse, retired emergency room physician; occasional work at [employer] Allergies Allergy/AdvReac Type Severity Reaction Status Date / Time No Known Allergies Allergy Verified 03/25/21 19:04 Home Medications Medication Instructions Recorded Confirmed Type pantoprazole 40 mg tablet,delayed 40 mg PO DAILY 07/17/19 03/25/21 History release (Protonix) aspirin 81 mg chewable tablet 81 mg PO DAILY 10/15/20 03/25/21 History atorvastatin 40 mg tablet 40 mg PO DAILY 10/15/20 03/25/21 History budesonide-formoterol HFA 160 1 puff INHALATION BID 10/15/20 03/25/21 History mcg-4.5 mcg/actuation aerosol inhaler (Symbicort) carbidopa 25 mg-levodopa 100 mg 1 tab PO TID 10/15/20 03/25/21 History tablet losartan 50 mg tablet 50 mg PO DAILY 10/15/20 03/25/21 History temazepam 15 mg capsule 15 mg PO HS PRN 10/15/20 03/25/21 History tramadol 100 mg tablet 75 mg PO DAILY@1400 PRN 10/15/20 03/25/21 History tramadol 50 mg tablet 100 mg PO DAILY 10/15/20 03/25/21 History amlodipine 5 mg tablet 5 mg PO DAILY 03/25/21 03/25/21 History Past Med/Surg History Medical History Asthma BPH loc w urin obs/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 High blood pressure High cholesterol Hypogonadism Insomnia Low testosterone Male erectile disorder Pacemaker Parkinson disease Surgical History History of arthroscopic knee surgery History of arthroscopy of shoulder b/l History of hemorrhoidectomy History of pacemaker History of penile implant History of transurethral resection of prostate History of vasectomy Family History Father Coronary heart disease Pacemaker Social History Smoking Status: Never smoker Tobacco Type: Cigarettes Hx Alcohol Use: Yes Alcohol type: beer Alcohol Intake Frequency Comment: 2-4 beers daily Hx Substance Use: No Preferred Language: Kyrgyz Communication Ability: Effective Beliefs That Will Affect Care: None marital status: Current Living Situation: Alone Other Information That Helps Us Care for You: No Feels Safe at Home: Yes Safety Concerns: Feels Safe At This Time Assistive Devices: None Review of Systems Review of Systems: As per HPI, all 10 systems reviewed, all other ROS negative Physical Exam Physical Exam: GENERAL: Comfortable, tremulous, no respiratory distress SKIN: Normal color, warm HEENT: Bespectacled, [place] palpebral conjunctivae, no ptosis, dry buccal mucosa NECK : Supple, no tenderness CHEST : CTA, no tenderness HEART : Tachycardic, no obvious murmurs ABDOMEN: Some distention, nontender EXTREMITIES : No LE swelling/tenderness, no other conspicuous deformities noted NEUROLOGIC : Coherent, no facial asymmetry, tremulous, no other gross focality Results & Data Results & Data ([facility]) Vital Signs (Past 12 Hours) Vital Signs Temp Pulse Resp BP Pulse Ox 03/25/21 19:12 105 H 19 97 03/25/21 19:00 18 138/89 99 03/25/21 18:00 107 H 17 152/93 H 99 03/25/21 17:49 37 C 108 H 20 142/87 H 95 Laboratory Results Laboratory Results WBC 8.36 K/uL (4.8-10.8) 03/25/21 18:31 RBC 4.67 M/uL (4.7-6.1) L 03/25/21 18:31 Hgb 15.2 g/dL (14.0-18.0) 03/25/21 18:31 Hct 43.9 % (42-52) 03/25/21 18:31 MCV 94.0 fL (80-100) 03/25/21 18:31 MCH 32.5 pg (25-34) 03/25/21 18:31 MCHC 34.6 g/dL (32-36) 03/25/21 18:31 RDW Std Deviation 46.6 fL (36.4-46.3) H 03/25/21 18:31 RDW Coeff of Nicole 13.5 % (11.5-14.5) 03/25/21 18:31 Plt Count 252 K/uL (130-400) 03/25/21 18:31 MPV 9.7 fL (7.4-10.4) 03/25/21 18:31 Immature Gran % (Auto) 0.4 % 03/25/21 18:31 Neut % (Auto) 72.4 % 03/25/21 18:31 Lymph % (Auto) 17.0 % 03/25/21 18:31 Haakon % (Auto) 9.4 % 03/25/21 18:31 Eos % (Auto) 0.6 % 03/25/21 18:31 Baso % (Auto) 0.2 % 03/25/21 18:31 Neut # (Auto) 6.05 K/uL (1.4-6.5) 03/25/21 18:31 Lymph # (Auto) 1.42 K/uL (1.2-3.4) 03/25/21 18:31 Haakon # (Auto) 0.79 K/uL (0.11-0.59) H 03/25/21 18:31 Eos # (Auto) 0.05 K/uL (0-0.5) 03/25/21 18:31 Baso # (Auto) 0.02 K/uL (0-0.2) 03/25/21 18:31 Immature Gran # (Auto) 0.03 K/uL (0.00-0.02) H 03/25/21 18:31 PT 9.7 Seconds (9.0-12.0) 03/25/21 18:31 INR 1.0 (0.9-1.1) 03/25/21 18:31 APTT 27.1 Seconds (21.0-31.0) 03/25/21 18:31 PTT Ratio 1.0 03/25/21 18:31 Sodium 128 mmol/L (136-145) L 03/25/21 18:31 Potassium 3.6 mmol/L (3.5-5.1) 03/25/21 18:31 Chloride 97 mmol/L (98-107) L 03/25/21 18:31 Carbon Dioxide 22 mmol/L (21-32) 03/25/21 18:31 Anion Gap 9.0 (3-11) 03/25/21 18:31 BUN 12 mg/dl (7-18) 03/25/21 18:31 Creatinine 0.87 mg/dl (0.6-1.4) 03/25/21 18:31 Est Cr Clr Drug Dosing Not Reportable 03/25/21 18:31 Est GFR ( Amer) 100.6 ml/min 03/25/21 18:31 Est GFR (Non-Af Amer) 86.8 ml/min 03/25/21 18:31 BUN/Creatinine Ratio 13.6 (10-20) 03/25/21 18:31 Glucose 99 mg/dl (70-99) 03/25/21 18:31 Osmolality 268 mOsm/kg (280-300) L 03/25/21 18:31 Calcium 8.7 mg/dl (8.5-10.1) 03/25/21 18:31 Magnesium 2.4 mg/dl (1.8-2.4) 03/25/21 18:31 Total Bilirubin 1.3 mg/dl (0.2-1) H 03/25/21 18:31 Direct Bilirubin 0.5 mg/dl (0-0.2) H 03/25/21 18:31 AST 55 U/L (15-37) H 03/25/21 18:31 ALT 33 U/L (12-78) 03/25/21 18: Alkaline Phosphatase 88 U/L (45-117) 03/25/21 18:31 Troponin I < 0.015 ng/ml (0-0.045) 03/25/21 18: Total Protein 7.1 gm/dl (6.4-8.2) 03/25/21 18: Albumin 3.9 gm/dl (3.4-5.0) 03/25/21 18: Lipase 77 U/L (73-393) 03/25/21 18: TSH 0.749 uIu/ml (0.300-4.500) 03/25/21 18:31 Urine Color Yellow 03/25/21 20:00 Urine Appearance Clear (Clear) 03/25/21 20:00 Urine pH 6.0 (4.5-7.5) 03/25/21 20:00 Ur Specific [place] 1.009 (1.000-1.030) 03/25/21 20:00 Urine Protein Negative (Negative) 03/25/21 20:00 Urine Glucose (UA) Negative (Negative) 03/25/21 20:00 Urine Ketones 1+ (Negative) H 03/25/21 20:00 Urine Blood Negative (Negative) 03/25/21 20:00 Urine Nitrite Negative (Negative) 03/25/21 20:00 Urine Bilirubin Negative (Negative) 03/25/21 20:00 Urine Urobilinogen Negative (Negative) 03/25/21 20:00 Ur Leukocyte Esterase Negative (Negative) 03/25/21 20:00 Urine Osmolality 224 mOsm/kg (500-800) L 03/25/21 20:00 Ur Random Sodium 23 mmol/L 03/25/21 20:00 Ethyl Alcohol mg/dL < 3.0 mg/dl (0-3) 03/25/21 18: Lyme Disease IgG Ab Negative (Negative) 03/25/21 18:31 Lyme Disease IgM Ab Equivocal (Negative) A 03/25/21 18:31 COVID-19 Eval Order Covid19 at [facility] 03/25/21 19:[address] 03/25/21 18:07 CT head/brain wo con CLINICAL HISTORY: ams etoh parkinson COMPARISON STUDY: October 15, 2020 TECHNIQUE: Axial CT of the brain is performed from the vertex to the skull base. IV contrast was not administered for this examination. A dose lowering technique was utilized adhering to the principles of ALARA. CT DOSE: FINDINGS: No intra or extra-axial mass lesions are visualized. There is no CT evidence of acute cortical infarction. There is no evidence of midline shift. There is no acute hemorrhage. No acute depressed calvarial fractures are visualized. There are patchy white matter hypodensities likely on a small vessel basis. There is no evidence of pathologic ventricular dilatation. There is no evidence of acute sinusitis IMPRESSION: No acute intracranial findings ACT 112: Negative or not required by law. The above report was generated using voice recognition software. It may contain grammatical, syntax or spelling errors. Electronically signed by: Alyce Diaz DO 03/25/2021 7:[address] 03/25/21 18:08 CT OF THE CERVICAL SPINE CLINICAL HISTORY: ams etoh parkinson COMPARISON STUDY: October 15, 2020 CTA of the neck CT DOSE: 1057.28 mGy.cm TECHNIQUE: CT scan of the cervical spine was performed from the skull base to the thoracic inlet. Images are reviewed in the axial, sagittal, and coronal planes. IV contrast was not administered for this examination. A dose lowering technique was utilized adhering to the principles of ALARA. FINDINGS: The visualized portions of the lung apices reveal no evidence of pneumothorax. The prevertebral soft tissues are normal. No acute fracture deformity visualized. Facet joints are aligned. There is reverse of normal cervical lordosis centered at at C3-C4 level. Mild anterolisthesis of C2 on C3 is again seen and unchanged since prior. Mild central canal stenosis is seen at C3-C4, C5-C6 levels and associated with multilevel neural foraminal stenosis.. There is mild cervical dextroscoliosis which is new since prior study and associated with severe multilevel intervertebral disc space narrowing, subchondral sclerosis and posterior osteophytes. IMPRESSION: 1. No definite acute fracture or traumatic malalignment is seen. 2. Redemonstration of mild anterolisthesis of C2 on C3. 3. Multilevel severe degenerative changes of the spine with interval development of the mild right dextroscoliosis. 4. Few areas of central canal and neural foraminal stenosis. ACT 112: Negative or not required by law. The above report was generated using voice recognition software. It may contain grammatical, syntax or spelling errors. Electronically signed by: Alyce Diaz DO 03/25/2021 7:33 PM Chest X-Ray 03/25/21 18:08 XR chest 1V portable CLINICAL HISTORY: ams etoh parkinson COMPARISON STUDY: October 15, 2020 FINDINGS: No pneumothorax. No pleural effusion. No large infiltrates or consolidative lesions are seen. Previously seen nodularity within bilateral basis appear slightly less conspicuous however there is calcified nodule projects into anatomical region of the left costophrenic angle which is unchanged since prior study. Cardiomediastinal silhouette is within normal limits in size. No significant pulmonary vascular congestion.. Aorta is tortuous. Osseous structures: Degenerative changes of the spine. Stable position of dual-lead left-sided pacemaker with battery pack partially obscuring left lung parenchyma. IMPRESSION: 1. No large infiltrates or consolidative lesions are seen. Previously seen patchy nodular opacities within bilateral basis are less conspicuous since prior study. Please correlate above-mentioned findings with prior history. ACT 112: Negative or not required by law. The above report was generated using voice recognition software. It may contain grammatical, syntax or spelling errors. Electronically signed by: Alyce Diaz DO 03/25/2021 7:12 PM Diagnostic Findings EKG as per my interpretation: Rate 105, sinus tachycardia, normal axis, T wave abnormalities inferior leads (1) Alcohol dependence with withdrawal Complication of substance-induced condition: uncomplicated Qualified Code(s): F10.230 - Alcohol dependence with withdrawal, uncomplicated
[2021-03-25] MEDS ORDERED: GABAPENTIN 1200MG ALCOHOL WITHDRAWAL LOAD PO STA (21:19)
[2021-03-25] MEDS ORDERED: cloNIDine HCL 0.1 MG TAB PO STA (21:35)
[2021-03-25] MEDS ORDERED: PROMETHAZINE HCL 12.5 MG in SODIUM CHLORIDE 0.9% 50 ML IV PRN (23:29)
[2021-03-25] MEDS ORDERED: ATIVAN IV ALCOHOL WITHDRAWL IV PRN (23:29)
[2021-03-25] MEDS ORDERED: LORazepam 2 MG/4 ML VIAL IV PRN (23:29)
[2021-03-25] MEDS ORDERED: CARBIDOPA/LEVODOPA 25/100MG TAB PO SCH (23:29)
[2021-03-25] MEDS ORDERED: LORazepam 3 MG/6 ML VIAL IV PRN (23:29)
[2021-03-25] MEDS ORDERED: TEMAZEPAM 15 MG CAPSULE PO PRN (23:29)
[2021-03-25] MEDS ORDERED: ACETAMINOPHEN 325 MG TAB PO PRN (23:56)
[2021-03-26] MEDS ORDERED: SODIUM CHLORIDE 0.45 % 1,000 ML IV ONE (01:30)
[2021-03-26] MEDS: CARBIDOPA/LEVODOPA 25/100MG TAB PO SCH ×3 (05:01→17:35)
[2021-03-26] MEDS: GABAPENTIN 600 MG TAB PO SCH ×3 (05:01→17:36)
[2021-03-26 07:22] LABS: Basophils # (auto) 0.02 K/uL (0-0.2); Basophils % (auto) 0.4 %; Eosinophils # (auto) 0.13 K/uL (0-0.5); Eosinophils % (auto) 2.7 %; Hematocrit (blood only) 41.6 % (42-52); Hemoglobin 13.8 g/dL (14.0-18.0); Immature Granulocytes # (auto) 0.01 K/uL (0.00-0.02); Immature Granulocytes % (auto) 0.2 %; Lymphocytes # (auto) 1.16 K/uL (1.2-3.4); Mean Corpuscular Hemoglobin 31.6 pg (25-34); Mean Corpuscular Hgb Conc 33.2 g/dL (32-36); Mean Corpuscular Volume 95.2 fL (80-100); Mean Platelet Volume 9.8 fL (7.4-10.4); Monocytes # (auto) 0.61 K/uL (0.11-0.59); Monocytes % (auto) 12.6 %; Neutrophils # (auto) 2.91 K/uL (1.4-6.5); Neutrophils % (auto) 60.1 %; Platelet Count 198 K/uL (130-400); RDW Coefficient of Variation 13.6 % (11.5-14.5); RDW Standard Deviation 47.3 fL (36.4-46.3); Red Blood Count 4.37 M/uL (4.7-6.1); White Blood Count 4.84 K/uL (4.8-10.8)
[2021-03-26 07:59] LABS: Albumin Level 3.3 gm/dl (3.4-5.0); BUN Creatinine Ratio 11.1 (10-20); Calcium 8.3 mg/dl (8.5-10.1); Creatinine Clr Calc Pharmacy 79.4 ml/min; Est GFR (African American) 102.1 ml/min; Est GFR (Non-African American) 88.1 ml/min; Potassium 4.1 mmol/L (3.5-5.1)
[2021-03-26 08:02] LABS: Albumin Globulin Ratio 1.1 (0.9-2); Bilirubin,Total 1.5 mg/dl (0.2-1); Globulin 2.9 gm/dl (2.5-4.0); Total Protein 6.2 gm/dl (6.4-8.2)
--- NOTE | 2021-03-26 08:22 | Electrocardiogram Report ---
Test Reason : Blood Pressure : / mmHG Vent. Rate : 103 BPM Atrial Rate : 103 BPM P-R Int : 138 ms QRS Dur : 082 ms QT Int : 332 ms P-R-T Axes : 043 -11 003 degrees QTc Int : 434 ms Sinus tachycardia Left atrial enlargement Abnormal ECG When compared with ECG of 15-OCT-2020 09:26, No significant change was found Confirmed by Ajay Smyth ([id number]) on 03/26/2021 8:22:37 AM Referred By: REFERRED SELF Confirmed By:Ajay Smyth
[2021-03-26] MEDS: amLODIPine BESYLATE 5 MG TAB PO SCH (09:02)
[2021-03-26] MEDS: FLUTICASONE/VILANTEROL 100/25MCG 14 PUFFS/INHALER INH SCH (09:03)
[2021-03-26] MEDS: ASPIRIN 81 MG ECTAB PO SCH (09:03)
[2021-03-26] MEDS: LOSARTAN POTASSIUM 50 MG TAB PO SCH (09:03)
[2021-03-26] MEDS: ATORVASTATIN 40 MG TAB PO SCH (09:03)
[2021-03-26] MEDS: ENOXAPARIN INJ 40 MG/0.4 ML SYR SQ SCH (09:03)
[2021-03-26] MEDS: FOLIC ACID 1 MG TAB PO SCH (09:03)
[2021-03-26] MEDS: MULTIVITAMIN TAB PO SCH (09:03)
[2021-03-26] MEDS: PANTOprazole 40 MG TAB PO SCH (09:04)
[2021-03-26] MEDS: THIAMINE HCL 100 MG TAB PO SCH (09:04)
[2021-03-26] MEDS: LORazepam 1 MG/2 ML VIAL IV PRN ×2 (09:28→16:24)
[2021-03-26] MEDS: oxyCODONE HCL IR 5 MG TAB (IMMEDIATE RELEASE) PO SCH (11:59)
--- NOTE | 2021-03-26 12:27 | Hospitalist Progress Note ---
Date of Service March 26, 2021 Assessment & Plan (1) Alcohol dependence with withdrawal: Plan: Present on admission to get detox from alcohol Last drink was the night before Continue alcohol withdrawal protocol with gabapentin and Ativan Will monitor closely for sign of withdrawal and DT Continue Thiamine and Ativan Clinically stable Hyponatremia Mostly secondary to alcohol intake Na increased from 128 to 136 Will D/C IVF fluid Continue monitor BMP SA node dysfunction status post PPM Hypertension Continue amlodipine and losartan Continue monitor BP Dyslipidemia Continue statin Chronic pain On Tramadol but due to the risk of Seizure, will change to Oxycodone Stable DVT prophylaxis on Lovenox Full code Patient son-in-law requesting updates from providers. Dr. Esa Moreno, contact #[phone]. Admission and Anticipated Discharge Date Admission Date: March 25, 2021 Subjective Patient was seen and examined for follow-up of alcohol abuse Lying in bed no distress watching TV Pt said that he feels fine ok He said that one time that he did not drink a week with no problem Denies any chest pain, palpitation, dizziness and SOB Physical Exam Physical Exam: General- No acute distress Head- atraumatic Eyes- PERRL, EOMI, ENT- oropharynx clear Neck- supple, no JVD Lungs- clear to auscultation Heart- regular rhythm; no murmur Abdomen- normal bowel sounds, soft, nontender Extremities- no calf tenderness Neuro- alert, oriented x 3; PERRL, EOMI; no facial palsy; no dysarthria, +left hand tremor, no nystagmus Skin- warm & dry Results & Data Results & Data ([facility]) Vital Signs (Past 12 Hours) Vital Signs Temp Pulse Pulse Resp BP Pulse Ox 03/26/21 12:03 36.7 C 85 19 106/72 93 03/26/21 07:47 36.5 C 83 19 102/69 93 03/26/21 07:42 85 03/26/21 03:22 36.7 C 83 20 114/78 94 (1) Alcohol dependence with withdrawal Complication of substance-induced condition: uncomplicated Qualified Code(s): F10.230 - Alcohol dependence with withdrawal, uncomplicated
[2021-03-26] MEDS: oxyCODONE HCL IR 5 MG TAB (IMMEDIATE RELEASE) PO PRN ×2 (16:26→22:45)
[2021-03-26] MEDS ORDERED: CETIRIZINE HCL 10 MG TABLET PO PRN (22:44)
[2021-03-26] MEDS ORDERED: CETIRIZINE HCL 10 MG TABLET PO ONE (22:44)
[2021-03-27] MEDS: GABAPENTIN 600 MG TAB PO SCH ×3 (01:07→21:49)
[2021-03-27] MEDS: CARBIDOPA/LEVODOPA 25/100MG TAB PO SCH ×3 (06:07→17:20)
[2021-03-27] MEDS: PANTOprazole 40 MG TAB PO SCH (08:44)
[2021-03-27] MEDS: FOLIC ACID 1 MG TAB PO SCH (08:44)
[2021-03-27] MEDS: THIAMINE HCL 100 MG TAB PO SCH (08:44)
[2021-03-27] MEDS: FLUTICASONE/VILANTEROL 100/25MCG 14 PUFFS/INHALER INH SCH (08:44)
[2021-03-27] MEDS: MULTIVITAMIN TAB PO SCH (08:44)
[2021-03-27] MEDS: amLODIPine BESYLATE 5 MG TAB PO SCH (08:44)
[2021-03-27] MEDS: ATORVASTATIN 40 MG TAB PO SCH (08:44)
[2021-03-27] MEDS: LOSARTAN POTASSIUM 50 MG TAB PO SCH (08:44)
[2021-03-27] MEDS: ENOXAPARIN INJ 40 MG/0.4 ML SYR SQ SCH (08:45)
[2021-03-27] MEDS: ASPIRIN 81 MG ECTAB PO SCH (08:45)
[2021-03-27] MEDS: oxyCODONE HCL IR 5 MG TAB (IMMEDIATE RELEASE) PO SCH (08:48)
[2021-03-27] MEDS: POLYETHYLENE (MIRALAX) 17 GM PACK PO PRN (08:53)
[2021-03-27 10:21] LABS: BUN Creatinine Ratio 7.6 (10-20); Calcium 9.1 mg/dl (8.5-10.1); Creatinine Clr Calc Pharmacy 65.6 ml/min; Est GFR (African American) 85.3 ml/min; Est GFR (Non-African American) 73.6 ml/min; Magnesium 2.5 mg/dl (1.8-2.4); Potassium 3.9 mmol/L (3.5-5.1)
[2021-03-27] MEDS: LORazepam 1 MG/2 ML VIAL IV PRN ×2 (17:26→23:49)
--- NOTE | 2021-03-27 19:38 | Hospitalist Progress Note ---
Date of Service March 27, 2021 Assessment & Plan (1) Alcohol dependence with withdrawal: Plan: Present on admission to get detox from alcohol Last drink was the night before Continue alcohol withdrawal protocol with gabapentin and Ativan Will monitor closely for sign of withdrawal and DT Continue Thiamine and Ativan Clinically stable Hyponatremia Mostly secondary to alcohol intake Na increased from 128 to 136 Will D/C IVF fluid Continue monitor BMP SA node dysfunction status post PPM Hypertension Continue amlodipine and losartan Continue monitor BP Dyslipidemia Continue statin Chronic pain On Tramadol but due to the risk of Seizure, will change to Oxycodone Stable DVT prophylaxis on Lovenox Full code Patient son-in-law requesting updates from providers. Dr. Esa Moreno, contact #[phone]. Admission and Anticipated Discharge Date Admission Date: March 25, 2021 Subjective Patient was seen and examined for follow-up of alcohol abuse Lying in bed no distress She said that she slept well He said that one time that he did not drink a week with no problem Denies any chest pain, palpitation, dizziness and SOB Physical Exam Physical Exam: General- No acute distress Head- atraumatic Eyes- PERRL, EOMI, ENT- oropharynx clear Neck- supple, no JVD Lungs- clear to auscultation Heart- regular rhythm; no murmur Abdomen- normal bowel sounds, soft, nontender Extremities- no calf tenderness Neuro- alert, oriented x 3; PERRL, EOMI; no facial palsy; no dysarthria, +left hand tremor, no nystagmus Skin- warm & dry Results & Data Results & Data ([facility]) Vital Signs (Past 12 Hours) Vital Signs Temp Pulse Pulse Resp BP Pulse Ox 03/27/21 18:31 37.2 C 96 H 20 95/61 L 94 03/27/21 15:16 36.9 C 84 18 117/83 94 03/27/21 14:20 98 H 03/27/21 11:08 36.3 C L 84 20 107/72 97 03/27/21 08:42 72 121/83 (1) Alcohol dependence with withdrawal Complication of substance-induced condition: uncomplicated Qualified Code(s): F10.230 - Alcohol dependence with withdrawal, uncomplicated
[2021-03-27] MEDS: oxyCODONE HCL IR 5 MG TAB (IMMEDIATE RELEASE) PO PRN (23:40)
[2021-03-28] MEDS: CARBIDOPA/LEVODOPA 25/100MG TAB PO SCH ×3 (05:57→17:05)
[2021-03-28] MEDS: oxyCODONE HCL IR 5 MG TAB (IMMEDIATE RELEASE) PO SCH (09:11)
[2021-03-28] MEDS: THIAMINE HCL 100 MG TAB PO SCH (09:12)
[2021-03-28] MEDS: MULTIVITAMIN TAB PO SCH (09:12)
[2021-03-28] MEDS: LOSARTAN POTASSIUM 50 MG TAB PO SCH (09:12)
[2021-03-28] MEDS: PANTOprazole 40 MG TAB PO SCH (09:13)
[2021-03-28] MEDS: ATORVASTATIN 40 MG TAB PO SCH (09:13)
[2021-03-28] MEDS: GABAPENTIN 600 MG TAB PO SCH (09:13)
[2021-03-28] MEDS: amLODIPine BESYLATE 5 MG TAB PO SCH (09:13)
[2021-03-28] MEDS: FOLIC ACID 1 MG TAB PO SCH (09:13)
[2021-03-28] MEDS: ASPIRIN 81 MG ECTAB PO SCH (09:13)
[2021-03-28] MEDS: FLUTICASONE/VILANTEROL 100/25MCG 14 PUFFS/INHALER INH SCH (09:14)
[2021-03-28] MEDS: ENOXAPARIN INJ 40 MG/0.4 ML SYR SQ SCH (09:14)
[2021-03-28] MEDS: POLYETHYLENE (MIRALAX) 17 GM PACK PO PRN (12:12)
[2021-03-29] MEDS ORDERED: GABAPENTIN 600 MG TAB PO SCH ×2 (08:00→10:00)
[2021-03-30 14:22] LABS: 18KDIGG Band NON-REACTIVE; 23KDIGG Band NON-REACTIVE; 23KDIGM Band NON-REACTIVE; 28KDIGG Band NON-REACTIVE; 30KDIGG Band NON-REACTIVE; 39KDIGG Band NON-REACTIVE; 39KDIGM Band NON-REACTIVE; 41KDIGG Band REACTIVE; 41KDIGM Band NON-REACTIVE; 45KDIGG Band NON-REACTIVE; 58KDIGG Band NON-REACTIVE; 66KDIGG Band NON-REACTIVE; 93KDIGG Band NON-REACTIVE; Lyme Antibodies, WB IgG NEGATIVE (NEGATIVE); Lyme Antibodies, WB IgM NEGATIVE (NEGATIVE)
--- NOTE | 2021-04-08 09:53 | Discharge Summary ---
Date of Service March 28, 2021 Admission HPI Per Admitting Provider History obtained from patient, family, and records. Medical history significant for SA node dysfunction status post PPM, hypertension, hyperlipidemia, GERD, Parkinson's disease as per records, asthma, alcohol abuse, past tobacco abuse, chronic pain on narcotics. Last confinement September 2020 for TIA. Patient decided to quit alcohol last night. Woke up this morning feeling funny. No chest pain, no S OB. More tremulous than usual. Patient worried about alcohol withdrawal. No prior history of alcohol withdrawal seizures or intubation for alcohol withdrawal. Patient brought by family to the ER. Medical History as above Surgical History : PPM, shoulder surgeries, hemorrhoidectomy, knee surgery, vasectomy Family History : Heart disease Personal/Social history : Past tobacco abuse, alcohol abuse, retired emergency room physician; occasional work at [employer] Admission Exam Per Admitting Provider GENERAL: Comfortable, tremulous, no respiratory distress SKIN: Normal color, warm HEENT: Bespectacled, [place] palpebral conjunctivae, no ptosis, dry buccal mucosa NECK : Supple, no tenderness CHEST : CTA, no tenderness HEART : Tachycardic, no obvious murmurs ABDOMEN: Some distention, nontender EXTREMITIES : No LE swelling/tenderness, no other conspicuous deformities noted NEUROLOGIC : Coherent, no facial asymmetry, tremulous, no other gross focality Principal Diagnosis Alcohol Abuse Hyponatremia Discharge Exam General- No acute distress Head- atraumatic Eyes- PERRL, EOMI, ENT- oropharynx clear Neck- supple, no JVD Lungs- clear to auscultation Heart- regular rhythm; no murmur Abdomen- normal bowel sounds, soft, nontender Extremities- no calf tenderness Neuro- alert, oriented x 3; PERRL, EOMI; no facial palsy; no dysarthria, +left hand tremor, no nystagmus Skin- warm & dry Discharge Data Allergies Allergy/AdvReac Type Severity Reaction Status Date / Time No Known Allergies Allergy Verified 03/25/21 19:04 Consultations 03/25/21 19:40 ED Decision to Admit Stat Ordered Studies 03/25/21 18:07 CT head/brain wo con Stat 03/25/21 18:08 CT cervical spine wo con Stat XR chest 1V portable CLINICAL HISTORY: ams etoh parkinson COMPARISON STUDY: October 15, 2020 FINDINGS: No pneumothorax. No pleural effusion. No large infiltrates or consolidative lesions are seen. Previously seen nodularity within bilateral basis appear slightly less conspicuous however there is calcified nodule projects into anatomical region of the left costophrenic angle which is unchanged since prior study. Cardiomediastinal silhouette is within normal limits in size. No significant pulmonary vascular congestion.. Aorta is tortuous. Osseous structures: Degenerative changes of the spine. Stable position of dual-lead left-sided pacemaker with battery pack partially o bscuring left lung parenchyma. IMPRESSION: 1. No large infiltrates or consolidative lesions are seen. Previously seen patchy nodular opacities within bilateral basis are less conspicuous since prior study. Please correlate above-mentioned findings with prior history. ACT 112: Negative or not required by law. The above report was generated using voice recognition software. It may contain grammatical, syntax or spelling errors. Electronically signed by: Alyce Diaz DO 03/25/2021 7:12 PM Dictated: 03/25/211909Transcribed: 03/25/211909 CT OF THE CERVICAL SPINE CLINICAL HISTORY: ams etoh parkinson COMPARISON STUDY: October 15, 2020 CTA of the neck CT DOSE: 1057.28 mGy.cm TECHNIQUE: CT scan of the cervical spine was performed from the skull base to the thoracic inlet. Images are reviewed in the axial, sagittal, and coronal planes. IV contrast was not administered for this examination. A dose lowering technique was utilized adhering to the principles of ALARA. FINDINGS: The visualized portions of the lung apices reveal no evidence of pneumothorax. The prevertebral soft tissues are normal. No acute fracture deformity visualized. Facet joints are aligned. There is reverse of normal cervical lordosis centered at at C3-C4 level. Mild anterolisthesis of C2 on C3 is again seen and unchanged since prior. Mild central canal stenosis is seen at C3-C4, C5-C6 levels and associated with multilevel neural foraminal stenosis.. There is mild cervical dextroscoliosis which is new since prior study and associated with severe multilevel intervertebral disc space narrowing, subchondral sclerosis and posterior osteophytes. IMPRESSION: 1. No definite acute fracture or traumatic malalignment is seen. 2. Redemonstration of mild anterolisthesis of C2 on C3. 3. Multilevel severe degenerative changes of the spine with interval development of the mild right dextroscoliosis. 4. Few areas of central canal and neural foraminal stenosis. ACT 112: Negative or not required by law. The above report was generated using voice recognition software. It may contain grammatical, syntax or spelling errors. Electronically signed by: Alyce Diaz DO 03/25/2021 7:33 PM Dictated: 03/25/211920Transcribed: 03/25/211920 CT head/brain wo con CLINICAL HISTORY: ams etoh parkinson COMPARISON STUDY: October 15, 2020 TECHNIQUE: Axial CT of the brain is performed from the vertex to the skull base. IV contrast was not administered for this examination. A dose lowering technique was utilized adhering to the principles of ALARA. CT DOSE: FINDINGS: No intra or extra-axial mass lesions are visualized. There is no CT evidence of acute cortical infarction. There is no evidence of midline shift. There is no acute hemorrhage. No acute depressed calvarial fractures are visualized. There are patchy white matter hypodensities likely on a small vessel basis. There is no evidence of pathologic ventricular dilatation. There is no evidence of acute sinusitis IMPRESSION: No acute intracranial findings ACT 112: Negative or not required by law. The above report was generated using voice recognition software. It may contain grammatical, syntax or spelling errors. Electronically signed by: Alyce Diaz DO 03/25/2021 7:17 PM Dictated: 03/25/211913Transcribed: 03/25/211913 Hospital Course (1) Alcohol dependence with withdrawal: Present on admission to get detox from alcohol Last drink was the night before Continue alcohol withdrawal protocol with gabapentin and Ativan Will monitor closely for sign of withdrawal and DT Continue Thiamine and Ativan Case discussed with son with patient permission and agreed with the plan Pt is not interested in inpatient alcohol rehab, but will look for outpatient alcohol rehab finance and administration manager provided patient for outpatient rehab Clinically stable Hyponatremia Mostly secondary to alcohol intake Na increased from 128 to 136 Will D/C IVF fluid Continue monitor BMP SA node dysfunction status post PPM Hypertension Continue amlodipine and losartan Continue monitor BP Dyslipidemia Continue statin Chronic pain On Tramadol but due to the risk of Seizure, will change to Oxycodone Stable DVT prophylaxis on Lovenox Full code Patient son-in-law requesting updates from providers. Dr. Esa Moreno, contact #[phone]. Total Time Total Time Spent Total Time Spent (In Minutes): 35 minutes Discharge Plan Discharge Items Patient Disposition: Home - Self-Care Reason For Visit: ETOH WITHDRAWL Discharge Diagnosis: Alcohol abuse Activity: Resume your previous activity Non-emergency contact: Primary Care Provider Call non-emergency contact if: you have any medication questions Follow-up/Referrals: Guillermo Moore MD [Primary Care Provider] - Diet: Heart Healthy Addtl Attending Provider Instructions: Follow up with your primary care provider within 1 week Counseling on alcohol cessation You will need to get help for alcohol rehab program Seek medical attention if you develop any sign of alcohol withdrawal or Delirium tremens such as (confusion, hallucination,..) Please take the gabapentin (One tab) tomorrow Please no driving while taking the gabapentin Pending Studies at Discharge: No Stand-Alone Forms: My [employer] [place], Smoking Cessation Medications and DC Order Prescriptions: New folic acid 1 mg Tablet 1 mg PO QAM Qty: 30 RF: 0 thiamine HCl (vitamin B1) [Vitamin B-1] 100 mg Tablet 100 mg PO QAM Qty: 30 RF: 0 gabapentin 600 mg Tablet 600 mg PO Q24H Qty: 1 RF: 0 Continued pantoprazole [Protonix] 40 mg tablet,delayed release (DR/EC) 40 mg PO DAILY RF: 0 losartan 50 mg tablet 50 mg PO DAILY RF: 0 temazepam 15 mg capsule 15 mg PO HS PRN (Reason: Insomnia) RF: 0 carbidopa-levodopa 25-100 mg tablet 1 tab PO TID RF: 0 atorvastatin 40 mg tablet 40 mg PO DAILY RF: 0 aspirin 81 mg Tablet,Chewable 81 mg PO DAILY RF: 0 tramadol 50 mg tablet 100 mg PO DAILY RF: 0 tramadol 100 mg Tablet 75 mg PO DAILY@1400 PRN (Reason: pain) RF: 0 budesonide-formoterol [Symbicort] 160-4.5 mcg/actuation Hfa Aerosol Inhaler 1 puff INHALATION BID RF: 0 amlodipine 5 mg tablet 5 mg PO DAILY RF: 0 Discharge Orders: Discharge Order (Routine); Ordered 03/28/21 Ordered By: Matthew Cortés Admission Data Admit Date/Time: 03/25/21 21:17 Attending Provider: Matthew Cortés Admit Provider: Deonte Middleton Primary Care Provider: Guillermo Moore Other Interventions: Discharge Summary Assessment (RN) Last Done: 03/28/21 16:37
--- NOTE | 2021-04-09 07:20 | Coding Query ---
CODING QUERY To promote full compliance with coding requirements relating to patient care, provider participation is requested in all cases of insurance coder uncertainty. Please assist us with the question(s) below: Coding Question(s): Documentation throughout record states "Alcohol Dependence with Withdrawal." Patient was treated with Gabapentin and Ativan. Symptoms include being anxious and tremulous. Discharge Diagnosis on the discharge summary states "Alcohol Abuse" Please clarify below: ( ) Alcohol Dependence with Withdrawal (x ) Alcohol Dependence with Withdrawal Ruled Out; Alcohol Abuse, NOS only ( ) Other Please Explain: Thank you Alexandre Mcbride Principal Diagnosis: "that condition established after study, to be chiefly responsible for occasioning the admission of the patient to the hospital for care." Co-Existing Principal Diagnosis: "when two or more diagnoses equally meet the criteria for principal diagnosis as determined by the circumstances of admission, diagnostic work up, and/or therapy provided, and the Alphabetic Index, Tabular List, or another coding guideline does not provide sequencing direction, any one of the diagnoses may be sequenced first." "When the physician has documented what appears to be a current diagnosis in the body of the record, but has not included the diagnosis in the final diagnostic statement, the physician should be asked whether the diagnosis should be added." ([facility] 2 QTR90. p3-4) ISMAEL
== END 2021-03-28 17:37 | disposition home or self-care (01) | DRG 897 ==
LOC: ED 17:31 → 2S 21:17 → 2W 03-26 20:37
DX: E87.1 Hypo-osmolality and hyponatremia; F10.10 Alcohol abuse, uncomplicated; K21.9 Gastro-esophageal reflux disease without esophagitis; Z95.0 Presence of cardiac pacemaker; K70.10 Alcoholic hepatitis without ascites; E78.00 Pure hypercholesterolemia, unspecified; I10 Essential (primary) hypertension; Z79.899 Other long term (current) drug therapy; G20 Parkinson's disease; I49.5 Sick sinus syndrome; J45.909 Unspecified asthma, uncomplicated; Z79.82 Long term (current) use of aspirin; E78.5 Hyperlipidemia, unspecified; Z82.49 Family history of ischemic heart disease and other diseases of the circulatory system; Z79.891 Long term (current) use of opiate analgesic; G89.29 Other chronic pain

== ENCOUNTER 2024-01-06 07:38 | Observation (INO) ==
--- NOTE | 2024-01-03 13:41 | Anesthesiology Consultation ---
Date of Service January 03, 2024 Assessment & Plan (1) Encounter for pre-operative examination: Chart Review Chart Review: Acceptable Risk for Surgery (pending most recent pacemaker check ) and Patient NOT seen in Pre Admission Testing - Please obtain most recent pacemaker check ([facility] cardio) - Patient is NOT an ideal OPJ candidate (currently 23 hour observation) Left sided pacemaker with left sided TSA- discussed with Dr. Hayden- manan rep requested to be present DOS (OR informed) -Infectious Disease screening: Per PAT nursing assessment on 12/26/23. No known infectious disease contacts in past 10 days or current infectious disease symptoms. No recent travel outside the country. Patient last seen by neurology 10/21/2023 = seen for follow-upmild idiopathic tremor predominant Parkinson diseasecurrently well-controlled. Examination remains reassuring. Continue current dose of Sinemet. Discussed adding extended release tablet at night but patient wishes to defer at this time. In regards to previous MRI brain showing lacunar infarct as well as chronic microvascular ischemic changesrecommend continued dose of aspirin 81 mg and Lipitor 40 mg daily. In regards to cervical disc diseasehas seen spine surgery in the past. Follow-up in 6 months. Patient seen by cardiology 07/13/2023= Patient with history of syncope. Found to have sinus node dysfunction and a DDD pacemaker was implanted in 2013. No further episodes of syncope since pacemaker implanted. Patient continues to do well. Normal functioning pacemaker. Nonsustained ventricular tachycardiaasymptomatic. Was found previously to have coronary calcification. Currently doing well with no symptoms. Stress test February 2019 negative for ischemia. On statin. Without symptoms, would recommend no further evaluation. Right Reverse TSA 06/06/23= Done under [place] with LMA #4.0. Atraumatic History Surgery Operation Date: 01/06/24 12:00 Proposed Procedures p Left Total Shoulder Arthroplasty Reverse - Tremayne Ballard, Height/Weight Height: 5 ft 8 in Weight: 68.946 kg Allergies Allergy/AdvReac Type Severity Reaction Status Date / Time No Known Allergies Allergy Verified 12/26/23 08:38 Medications Home Medications Medication Instructions Recorded Confirmed Last Taken aspirin 81 mg chewable tablet 81 mg PO QAM 10/15/20 12/26/23 06/05/23 09:00 carbidopa 25 mg-levodopa 100 mg 1 tab PO TID 02/12/26/23 06/06/23 05:00 tablet antiarthritic combination no.2 900 900 mg PO QAM 03/05/22 12/26/23 05/30/23 09:00 mg tablet (glucosamine-chondroitin) multivitamin 1 tab PO QAM 03/05/22 12/26/23 06/05/23 09:00 testosterone undecanoate 750 mg/3 250 mg IM UD 03/05/22 12/26/23 Unknown mL (250mg/mL) intramuscular solution (Aveed) amlodipine 2.5 mg tablet 2.5 mg PO QAM #90 tabs 05/10/23 12/26/23 06/06/23 05:00 pantoprazole 40 mg tablet,delayed 40 mg PO QAM #90 tabs 08/09/23 12/26/23 Unknown release (Protonix) ezetimibe 10 mg tablet (Zetia) 10 mg PO QAM #90 tabs 11/09/23 12/26/23 Unknown losartan 100 mg tablet 100 mg PO QAM #90 tabs 11/29/23 12/26/23 Unknown tramadol 50 mg tablet 50 mg PO TID PRN pain #120 tabs 12/13/23 12/26/23 Unknown cholecalciferol (vitamin D3) 25 25 mcg PO QAM 12/26/23 12/26/23 Unknown mcg (1,000 unit) capsule (Vitamin D3) fluticasone furoate 100 1 inh inhalation QAM 12/26/23 12/26/23 Unknown mcg-vilanterol 25 mcg/dose inhalation powder (Breo Ellipta) nadh-ascorbic acid-sod bicarb 2.5 1 tab PO QAM 12/26/23 12/26/23 Unknown mg-0.3 mg-3 mg tablet temazepam 15 mg capsule 15 - 30 mg PO HS PRN Insomnia 12/26/23 12/26/23 Unknown trazodone 50 mg tablet 50 mg PO UD PRN insomnia 12/26/23 12/26/23 Unknown atorvastatin 20 mg tablet 20 mg PO QAM #90 tabs 12/27/23 Unknown Past Medical History Medical History (Updated 01/03/24 @ 13:30 by Ayala Marie PA-C) Alcohol dependence with withdrawal - event occurred in 2020- tremor - currently drinks beer- "a couple per week" 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 Seen by vascular surgery 09/28/23 - no indication for vascular intervention - next follow up 08/2025 Asthma uses routine inhaler QAM "controlled" breathing stable and controlled BPH loc w urin obs/LUTS Chronic pain Depression GERD (gastroesophageal reflux disease) well controlled and stable High blood pressure High cholesterol Hypogonadism Insomnia Low testosterone Male erectile disorder Pacemaker Due to SN dysfunction Medtronic - last checked ~08/2023 Parkinson disease Stable per patient TIA (transient ischemic attack) Questionable- 2020 per records Past Family History Family History Father Coronary heart disease Myocardial infarction Pacemaker Other No family history of adverse response to anesthesia Denies family history of Ovarian cancer Prostate cancer Breast cancer Colorectal cancer Past Surgical History Surgical History (Updated 01/03/24 @ 13:48 by Ayala Marie PA-C) H/O hemorrhoidectomy History of arthroscopic knee surgery left? History of arthroscopy of shoulder rt/left History of colonoscopy History of esophagogastroduodenoscopy (EGD) History of pacemaker Placed 2013 >bradycardia *medtronic>Dr. Palma/[place] checks device (last checked a couple months ago) History of penile implant History of reverse total replacement of right shoulder joint Right Reverse TSA 06/06/23= Done under [place] with LMA #4.0. Atraumatic History of tonsillectomy and adenoidectomy History of transurethral resection of prostate History of vasectomy [place] teeth removed Social History Smoking Status: Former smoker Do You Dip or Chew Tobacco: No Smoking End Date: as a teen Hx Alcohol Use: Yes Alcohol type: beer alcohol intake frequency: a few times a week Hx Substance Use: No substance use type: does not use Lab Results Anesthesia Preop Results Results Anesthesia Widget: WBC 6.04 K/ul (4.8-10.8) 01/03/24 Hgb 13.7 g/dl (14.0-18.0) L 01/03/24 Hct 41.6 % (42.0-52.0) L 01/03/24 Plt 208 K/uL (130-400) 01/03/24 Na 136 mmol/L (136-145) 01/03/24 K 4.2 mmol/L (3.5-5.1) 01/03/24 Cl 102 mmol/L (98-107) 01/03/24 CO2 27 mmol/L (21-32) 01/03/24 BUN 12 mg/dl (6-23) 01/03/24 Creat 0.97 mg/dl (0.6-1.4) 01/03/24 Glucose Level 78 mg/dl (70-99(Fasting)) 01/03/24 PT 10.5 Seconds (9.0-12.0) 01/03/24 PTT 27 Seconds (21-31) 01/03/24 INR 1.0 (0.9-1.1) 01/03/24 HA1c 5.8 % (4.5-5.6) H 11/18/23 Blood Type O Positive 01/03/24 Antibody Screen NEGATIVE 01/03/24 Testing Electrocardiogram Date: 05/09/23 Findings: + NSR @ (72bpm ) Normal EKG per cardio Chest X-Ray Date: 05/09/23 Findings: + NAD FINDINGS: Left subclavian pacer is in place. There is no pneumothorax or pleural effusion. Calcified nodule at the left lung base is unchanged. Nipple shadow projects over the left lower chest. There are calcified left hilar/AP window lymph nodes. Cardiac size is normal. Mediastinal contours are normal. No evidence for pulmonary edema. No consolidation to suggest pneumonia. Stress Test Date: 03/27/19 Type: exercise (ECHO) No evidence of ischemia within the limitations of the study (maximum stress heart rate which was 107 bpm). No chest pain with exercise Stress EKG response was normal with upsloping ST segment depression noted at peak stress, normalizing by 1 minute in recovery. Occasional PACs noted with stress. Sinus rhythm noted at rest. Mild concentric LVH. Qualitative LVEF is 55-59% (normal). LV wall motion is normal Normal RV size and systolic function No pericardial effusion is noted Mild MR. Mild TR. Other Testing Carotid duplex 09/05/23= Right carotid artery duplex examination indicates evidence of less than 50% stenosis of the internal carotid artery. Left carotid artery duplex examination indicates evidence of less than 50% stenosis of the internal carotid artery. Visualized portions of the bilateral internal carotid arteries measure normal size. Bilateral vertebral arteries show antegrade flow Cervical spine CT 12/22/22= No acute osseous traumatic injury or significant abnormal alignment involving the cervical spine. No significant alteration in the multilevel degenerative changes noted.
--- NOTE | 2024-01-05 13:13 | History & Physical Report ---
Date of Service January 05, 2024 Assessment & Plan (1) Rotator cuff arthropathy of left shoulder: We will proceed with a left reverse shoulder arthroplasty. Postoperatively he will be placed in a sling and kept overnight in the hospital for postop medical management. He plans to use energy physical therapy upon discharge. History of Present Illness Chief Complaint: Cuff tear arthropathy of the left shoulder. Primary Care Provider: Yue Chakraborty MD Los is a pleasant 73-year-old male who I did a right reverse shoulder replacement on in May. He has done very well with that. Unfortunately, he is dealing with left shoulder pain. X-rays and clinical examination of the diagnostic for cuff tear arthropathy of the left shoulder. After failing conservative treatment, he has elected proceed with a left reverse shoulder arthroplasty.. Allergies Allergy/AdvReac Type Severity Reaction Status Date / Time No Known Allergies Allergy Verified 12/26/23 08:38 Home Medications Medication Instructions Recorded Confirmed Type aspirin 81 mg chewable tablet 81 mg PO QAM 10/15/20 12/26/23 History carbidopa 25 mg-levodopa 100 mg 1 tab PO TID 10/15/20 12/26/23 History tablet antiarthritic combination no.2 900 900 mg PO QAM 03/05/22 12/26/23 History mg tablet (glucosamine-chondroitin) multivitamin 1 tab PO QAM 03/05/22 12/26/23 History testosterone undecanoate 750 mg/3 250 mg IM UD 03/05/22 12/26/23 History mL (250mg/mL) intramuscular solution (Aveed) amlodipine 2.5 mg tablet 2.5 mg PO QAM #90 tabs 05/10/23 12/26/23 Rx pantoprazole 40 mg tablet,delayed 40 mg PO QAM #90 tabs 08/09/23 12/26/23 Rx release (Protonix) ezetimibe 10 mg tablet (Zetia) 10 mg PO QAM #90 tabs 11/09/23 12/26/23 Rx losartan 100 mg tablet 100 mg PO QAM #90 tabs 11/29/23 12/26/23 Rx tramadol 50 mg tablet 50 mg PO TID PRN pain #120 tabs 12/13/23 12/26/23 Rx cholecalciferol (vitamin D3) 25 25 mcg PO QAM 12/26/23 12/26/23 History mcg (1,000 unit) capsule (Vitamin D3) nadh-ascorbic acid-sod bicarb 2.5 1 tab PO QAM 12/26/23 12/26/23 History mg-0.3 mg-3 mg tablet atorvastatin 20 mg tablet 20 mg PO QAM #90 tabs 12/27/23 Rx aspirin 81 mg tablet,delayed 81 mg PO BID #60 tabs 01/04/24 Rx release cefadroxil 500 mg capsule 500 mg PO BID 10 days #20 caps 01/04/24 Rx fluticasone furoate 100 1 inh inhalation QAM #60 ea 01/04/24 Rx mcg-vilanterol 25 mcg/dose inhalation powder (Breo Ellipta) oxycodone 5 mg tablet 5 mg PO Q6H PRN pain #30 tabs 01/04/24 Rx temazepam 15 mg capsule 15 - 30 mg (1 - 2 x 15 mg) PO HS 01/04/24 Rx PRN Insomnia #60 caps trazodone 50 mg tablet 50 mg PO UD PRN insomnia #30 tabs 01/04/24 Rx Past Med/Surg History Medical History TIA (transient ischemic attack) Questionable- 2020 per records 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 Seen by vascular surgery 09/28/23 - no indication for vascular intervention - next follow up 08/2025 GERD (gastroesophageal reflux disease) well controlled and stable Depression Chronic pain Alcohol dependence with withdrawal - event occurred in 2020- tremor - currently drinks beer- "a couple per week" Parkinson disease Stable per patient Insomnia Asthma uses routine inhaler QAM "controlled" breathing stable and controlled High blood pressure High cholesterol Low testosterone Male erectile disorder Pacemaker Due to SN dysfunction [employer] - last checked ~08/2023 BPH loc w urin obs/LUTS Hypogonadism Surgical History History of reverse total replacement of right shoulder joint Right Reverse TSA 06/06/23= Done under [place] with LMA #4.0. Atraumatic History of esophagogastroduodenoscopy (EGD) History of colonoscopy H/O hemorrhoidectomy [place] teeth removed History of tonsillectomy and adenoidectomy History of transurethral resection of prostate History of penile implant History of arthroscopic knee surgery left? History of vasectomy History of pacemaker Placed 2013 >bradycardia *medtronic>Dr. Palma/Monica checks device (last checked a couple months ago) History of arthroscopy of shoulder rt/left Family History Father Coronary heart disease Myocardial infarction Pacemaker Other No family history of adverse response to anesthesia Denies family history of Ovarian cancer Prostate cancer Breast cancer Colorectal cancer Social History Smoking Status: Former smoker Tobacco Type: Cigarettes Smoking End Date: as a teen; Second Hand Exposure: No; Do You Dip or Chew Tobacco: No; Tobacco Cessation Education Requested by Patient: No Hx Alcohol Use: Yes Alcohol type: beer Alcohol Intake Frequency: Monthly or Less Alcohol Intake Frequency Comment: 2-4 beers daily Hx Substance Use: No Preferred Language: Angolan Communication Ability: Effective Visual Impairment: Limited Hearing Ability: Normal Land Reclamation Specialist Required: No Beliefs That Will Affect Care: None marital status: Current Living Situation: Significant Other current occupational status: employed and retired current occupation: work 3 days a month and clinic. How many Children do You have: 2 Other Information That Helps Us Care for You: No Feels Safe at Home: Yes Safety Concerns: Feels Safe At This Time Childhood Exposure to Second-Hand Smoke: Yes Diet: regular caffeine: Yes during the past year weight has: remained stable Dental Care, Regularly: Yes Physical Activity Frequency: Daily Seatbelt Use: always Sunscreen Use: Yes (sometimes) Assistive Devices: Glasses Review of Systems All systems reviewed & are unremarkable except as noted in HPI & below. Physical Exam On physical examination left shoulder, he has decreased range of motion weakness throughout.. Constitutional WD/WN, vitals as above Eyes PERRL, conjunctivae normal, anicteric sclerae ENMT external ear and nose normal, oropharynx normal Neck trachea midline, no thyromegaly Respiratory normal respiratory effort Cardiovascular RRR, no murmur, no edema Gastrointestinal (Abdomen) normal bowel sounds, soft, nontender, no hepatosplenomegaly Psychiatric A+Ox3, euthymic affect Results & Data Results & Data Laboratory Results . Diagnostic Findings X-rays of the left shoulder show superior migration of the humeral head on the glenoid. There is articulation with the acromion.. PG Care Time/CCT Total # of Minutes Spent Total Time Spent with Patient: Total time spent is greater than 50% in coordination of care (as documented) at patient's floor/unit and/or counseling patient: Coding Level of Care Code None Diagnoses Rotator cuff arthropathy of left shoulder M12.812
[~2024-01-06 07:38] MED LIST changes: -BUDE180I INH; +BUPIVACAINE 0.5 % 5 MG/1 ML PF 10ML VIAL ONE; +LIDOCAINE 2% 2 ML VIAL/AMP(20MG/ML) INFIL ONE; +MIDAZOLAM HCL 1 MG/ML 2ML VIAL ONE; -PANT40TA PO; +PROPOFOL IV EMULSION 10 MG/ML 20 ML VIAL IV ONE; +ROCURONIUM BROMIDE 10 MG/ML 5 ML VIAL IV ONE; -SIMV40TA2 PO; -VALS40TA2 PO; -ZOLP10TA6 PO; +fentaNYL citrate PF 100 MCG/2 ML VIAL ONE
--- NOTE | 2024-01-06 08:04 | History & Physical Bridge Note ---
Date of Service January 06, 2024 History & Physical Bridge Note I have examined the patient, reviewed the History & Physical and in the interval since the performance of the History & Physical I have noted the following changes of clinical significance: no changes noted
[2024-01-06] MEDS: ACETAMINOPHEN 500 MG TAB PO SCH ×2 (08:25→20:55)
[2024-01-06] MEDS: GABAPENTIN 300 MG CAP PO SCH (08:25)
[2024-01-06] MEDS: dexAMETHasone 4 MG TAB PO SCH (08:25)
[2024-01-06] MEDS: FAMOTIDINE 20 MG TAB PO SCH (08:25)
[2024-01-06] MEDS ORDERED: PROMETHAZINE HCL 6.25 MG in SODIUM CHLORIDE 0.9% 50 ML IV PRN (08:27)
[2024-01-06] MEDS ORDERED: ePHEDrine sulfate 50 MG/ML AMP IV PRN (08:27)
[2024-01-06] MEDS ORDERED: HYDROmorphone INJ 1 MG/ML SYRINGE IV PRN (08:27)
[2024-01-06] MEDS ORDERED: fentaNYL citrate PF 100 MCG/2 ML VIAL IV PRN (08:27)
[2024-01-06] MEDS ORDERED: ATROPINE SULFATE 0.1 MG/ML 10ML SYR IV PRN (08:27)
[2024-01-06] MEDS ORDERED: ONDANSETRON INJ 2 MG/ML 2 ML VIAL IV PRN ×2 (08:27→13:44)
[2024-01-06] MEDS: LR 15ML/HR IV SCH (08:38)
[2024-01-06] MEDS: LR 60ML/HR IV SCH (08:38)
[2024-01-06] MEDS: TRANEXAMIC ACID 1,000 MG **IV Pre-op IV SCH (09:02)
[2024-01-06] MEDS: ceFAZolin 2000MG 2,000 MG/15 ML SYR IV SCH ×2 (09:34→16:51)
[2024-01-06] MEDS ORDERED: ONDANSETRON INJ 2 MG/ML 2 ML VIAL ONE (09:36)
[2024-01-06] MEDS ORDERED: SUGAMMADEX SODIUM 200 MG/2 ML VIAL IV ONE (09:36)
[2024-01-06] MEDS: ORTHO JOINT ANESTHETIC ONE (09:56)
[2024-01-06] MEDS: ROPIV 0.5% 246mg, Ketorolac 30mg, EPINEPHrine 0.5mg in NSS INFIL SCH (09:56)
[2024-01-06] MEDS: TRANEXAMIC ACID 1,000 MG **IV Intra-op IV SCH (10:10)
--- NOTE | 2024-01-06 10:15 | Operative Report ---
PG Post Operative Report Pre & Post Diagnosis Operation Date: 01/06/24 09:00 Pre-Op Diagnosis: Cuff tear arthropathy of the left shoulder with tendinopathy long head of biceps tendon Post-Op Diagnosis: Cuff tear arthropathy left shoulder with tendinopathy long head of biceps tendon I identified the patient and participated in the time-out.: Yes Procedure Operation Date: 01/06/24 09:00 Actual Procedures p Left Total Shoulder Arthroplasty Reverse(Left) - Tremayne Ballard DO Surgeon Tremayne Ballard DO Soil Analyst Tremayne Ling PA-C Estimated Blood Loss 150 Findings Consistent with Post-Op Diagnosis Specimens Left humeral head Description of Procedure A CPT code modifier 59: The long head of the biceps tendon was enlarged and inflamed consistent with tendinopathy. A tenodesis was opted. This was a separate and distinct portion of the procedure. For these reasons, a CPT code modifier 59 will be added to this case. Implants used: I used a [employer] Comprehensive reverse total shoulder arthroplasty system with a size 14 press fit micro humeral stem, a +3 offset humeral tray and a +3 retentive humeral bearing, a 25 mm small augment baseplate with a 6.5 mm central screw and superior and inferior locking screws, and a size 40 mm eccentric glenosphere. Los arrived at [facility] [place] for the above procedure. He was seen in the preoperative holding area and the operative extremity was identified and signed. He was given a preoperative antibiotic, TXA, and an interscalene nerve block. He was taken back to the operating room, laid on table in supine position, and put under general anesthesia. He was then put into the beachchair position. The shoulder was then prepped and draped in sterile fashion. A timeout was done and the patient and the operative extremity was properly identified. A deltopectoral approach was used. Dissection was taken down through the fascia and the deltoid was retracted laterally and the conjoined tendon was retracted medially. The anterior shoulder was exposed. The biceps groove was opened up and the biceps tendon was examined extensively. The biceps tendon demonstrated enlargement and inflammatory changes consistent with longstanding inflammation in the context of osteoarthritis and cuff arthropathy. The long head of the bic eps tendon was then tenodesed to the upper border of the pectoralis major. This was a separate and distinct portion of the procedure. The subscapularis was then directly released off the lesser tuberosity with a peel technique. The inferior capsule was released and the humeral head was dislocated. A canal finding reamer was sent down the center of the humeral canal. Sequential reaming up to a size 14 reamer was done. Off that reamer, a proximal humeral resection guide was placed. The proximal humerus was resected at 135 of inclination and 25 of retroversion. Osteophytes were then removed and the glenoid was exposed. Time was spent doing a complete capsular and labral release. The glenoid guide was then placed in the inferior aspect of the glenoid. A 3.2 mm Steinmann pin was then placed into the glenoid vault at 10 of inclination. The glenoid baseplate was then reamed. The final size 25 mm small augment baseplate was then impacted in the place. A 6.5 mm central screw was then placed followed by superior and inferior locking screws. A 40 mm eccentric glenosphere was then impacted into place. Surrounding soft tissues were then injected with 100 cc an orthopedic pain control cocktail. The proximal humerus was then exposed. Sequential broaching of the humerus up to a size 14 broach was done. Off that broach a +3 offset and +3 retentive humeral tray was triale d. The shoulder was then reduced, brought through a full range of motion, and felt to be stable. The shoulder was then dislocated and the broach was removed. The final size 14 micro press-fit humeral stem was then impacted into place. A +3 retentive humeral bearing was then snapped onto a +3 offset humeral tray. The humeral tray was then impacted onto the humeral stem. The shoulder was once again reduced, brought through a full range of motion, and felt to be stable. The subscapularis was retracted and poor quality. The subscapularis was unable to be repaired. A dilute betadyne lavage was then done for 3 minutes. The joint was then irrigated with normal saline solution. Hemostasis was obtained. The interval was closed with 2-0 Vicryl suture. The skin was then closed with 2-0 Vicryl and julissa. A Silverlon dressing was placed and the arm was rested in a regular arm sling. He was then extubated and transferred to a hospital bed. He taken to the postanesthesia care unit in stable condition. He tolerated the procedure well. Tremayne Ling PA-C, was present for the entire procedure. He was critical for patient positioning, prepping, draping, retraction exposure, wound closure and application of sterile dressing. I attest to the content of the Intraoperative Record and any orders documented therein. Any exceptions are noted below.
--- NOTE | 2024-01-06 10:51 | XRay Report ---
XR shoulder LT min 2V routine CLINICAL HISTORY: Post shoulder surgery COMPARISON STUDY: None. FINDINGS: Status post reverse left total shoulder arthroplasty. The hardware is intact. No fracture o r dislocation. Skin julissa are in place. Left-sided pacemaker. IMPRESSION: Status post reverse left total shoulder arthroplasty. No evidence for hardware complicat ion. ACT 112: Negative or not required by law. Electronically signed by: Ryan Acevedo M.D. 01/06/2024 10:50 AM
--- NOTE | 2024-01-06 12:53 | Anesthesiology Progress Note ---
Date of Service January 06, 2024 Anesthesia Post Procedure Vital Signs Vital Signs: Temp Pulse Resp BP Pulse Ox O2 Del Method O2 Flow Rate 01/06/24 12:30 98 H 21 135/89 96 Nasal Cannula 2 01/06/24 12:15 106 H 22 139/84 96 Nasal Cannula 2 01/06/24 12:00 91 H 19 135/87 96 Nasal Cannula 2 01/06/24 11:45 89 18 140/89 96 Nasal Cannula 2 01/06/24 11:30 36.5 C 95 H 17 149/95 H 94 Nasal Cannula 2 01/06/24 11:20 36.5 C 89 15 145/92 H 97 Nasal Cannula 2 01/06/24 11:10 36.5 C 92 H 20 149/90 H 97 Room Air 01/06/24 11:00 90 14 146/92 H 99 Oxymask 1 01/06/24 10:50 92 H 14 154/94 H 100 Oxymask 3 01/06/24 10:40 107 H 20 139/101 H 100 Oxymask 5 01/06/24 10:32 36.2 C L 96 H 18 156/86 H 99 Oxymask 7 01/06/24 08:00 36.6 C 76 18 144/93 H 98 Room Air Transfer of Care Handoff Completed per policy Notes Mental Status: alert / awake / arousable and participated in evaluation Patient Amnestic to Procedure: Yes Nausea / Vomiting: adequately controlled Pain: adequately controlled Airway Patency, RR, SpO2: stable & adequate BP & HR: stable & adequate Hydration State: stable & adequate Anesthetic Complications: no major complications apparent and Pt Satisfied with anesthetic care
--- OUTSIDE RECORDS SUMMARY | 2024-01-06 13:14 | External Medical Summary | Summary of Care ---
Author Name Unknown Organization [facility] Address [address] [place] [address] Phone [phone] Care Team Providers Care Grain Operations Manager Name Role Phone Yue Chakraborty MD Primary Care Provider [phone] Encounter Details Date Type Department Care Team (Late st Contact Info) Description 10/06/2023 Telephone Vascular Surg [facility] [address] [place] [address] Vikram Lawson MD [address] [place] [address] Allergies No known active allergiesdocumented as of this encounter (statuses as of 01/05/2024) Medications Medication Sig Dispensed Refills Start Date End Date Status TRAMADOL HCL 50 MG PO TBDP Take 1 Tablet by mouth in the morning and 1 Tablet before bedtime. 0 Active ASPIRIN 81 MG PO CHEWIndications:IN TERFACED RESULT Take 1 tablet by mouth daily 30 Tab 11 05/29/2014 Active Losartan Potassium 100 MG Oral Tablet Take 1 Tablet by mouth in the morning. 0 Active PETR MULTIVITAMIN FOR MEN PO TABS 1 tablet once a day 0 Active GLUCOSAMINE CHONDROITIN COMPLX PO TABS 1 tablet once a day 0 Active Budesonide-Formote rol Fumarate 160-4.5 MCG/ACT Inhalation Aerosol Inhale 2 Puffs by mouth in the morning and 2 Puffs before bedtime. 0 Active pantoprazole (PROTONIX) 40 MG TBEC 0 01/10/2019 Active testosterone cypionate (DEPOTESTOSTERONE CYPIONATE) 200 MG/ML injection Every 10 weeks 0 02/19/2019 Active amLODIPine Besylate 2.5 MG Oral Tablet Take 1 Tablet by mouth in the morning. 0 Active Temazepam 15 MG Oral Capsule (Restoril) Take 1 Capsule by mouth at bedtime as needed for Sleep. 0 Active Cetirizine HCl 10 MG Oral Tablet Take 1 Tablet by mouth as needed for Rhinitis. 0 Active traZODone HCl 50 MG Oral Tablet (Desyrel) Take 1 Tablet by mouth at bedtime. 0 Active Atorvastatin Calcium 20 MG Oral Tablet (Lipitor) Take 1 Tablet by mouth at bedtime. 0 Active Ezetimibe 10 MG Oral Tablet (Zetia) Take 1 Tablet by mouth in the morning. 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 Tele strip scanned into [employer]. Coronary artery calcification seen on CAT scan 0 05/25/2014 Overview: Pt reports no obstructive disease on outside cardiac ct angiogram. Statin and baby asa daily advised by [facility] cardiology 04/2014 Syncope and collapse 05/24/2014 HTN, goal below 140/90 05/24/2014 Dyslipidemia, goal to be determined 05/24/2014 GERD (gastroesophageal reflux disease) 4 Asthma with severity to be determined 05/24/2014 Overview: ICD-10 update of inactive term documented as of this encounter (statuses as of 01/05/2024) Immunizations Name Administration Dates Next Due Influenza, Whole Virus 06/21/2016,07/07/2011 Pneumococcal Conjugate Vacc, 13 Valent (Prevnar) 07/16/2016 Pneumococcal Polysaccharide PPV23 (Pneumovax) 09/25/2018 Seasonal Influenza, Split, I IV3, With Preserve, Inj 07/11/2018,07/14/2017,07/16/2016,06/21,05/29/2012,07/07/2011 Seasonal Influenza, Trivalen t, High Dose, No Preserve, IM 09/05/2019 TD, Preservative Free 08/29/1998 TDAP (age 10 and older)(Boostrix) 02/13/2010 documented as of this encounter Social History Tobacco Use Types Packs/Day Years Used Date Smoking Tobacco: Former Cigarettes 1 7 Smokeless Tobacco: Never Alcohol Use Standard Drinks/Week Comments Yes 0 (1 standard drink = 0.6 oz pur e alcohol) Occasional Sex and Gender Information Value Date Recorded Sex Assigned at Not on file Gender Identity Not on file Sexual Orientation Not on file Job Start Date Occupation Industry Not on file Not on file Not on file documented as of this encounter Functional Status Functional Status Response Date of Assess ment Are you deaf or do you have serious difficulty h earing? No 05/25/2014 Are you blind or do you have serious difficulty seeing, even when wearing glasses? No 05/25/2014 Do you have serious difficul ty walking or climbing stairs? (5 years old or older) No 05/25/2014 Do you have difficulty dress ing or bathing? (5 years old or older) No 05/25/2014 Because of a physical, menta l, or emotional condition, do you have difficulty doing errands alone such as visiting a doctor s office or shopping? (15 years old or older) No 05/25/20 14 Cognitive Status Response Date of Assessm ent Because of a physical, menta l, or emotional condition, do you have serious difficulty concentrating, remembering, or making decisions? (5 years old or older) No 05/25/2014 documented as of this encounter Miscellaneous Notes * Telephone Encounter - Amy Anderson CRNP - 10/06/2023 11:40 AM EST May mail the order to patient if he prefers, that being said, his pcp will need to review results with him as we cannot see results of any studies from [facility]. thanks * Telephone Encounter - Margaret Michelle OSA - 10/06/2023 11:30 AM EST Pt called back to let me know he would like to get the Aorta study completed at [facility] and requested the order be mailed to him to schedule. He refused to schedule at [facility], stating he likes to sleep in and a [address] is too far for him. documented in this encounter Plan of Treatment Upcoming Encounters Date Type Department Care Team (Late st Contact Info) Description 03/27/2024 8:00 AM EDT Office Visit Neurology [facility] [address] [place] [address] Rafat Johns, DO [address] [place] [address] 07/04/2024 8:30 AM EST Office Visit Cardiology, [facility] [address] [facility] [place] [address] Denisse Palma IV, MD [address] [place], [place] [id number] 07/04/2024 9:00 AM EST Cardiac Studies Cardiology, [facility] [address] [facility] [address] [facility] [address] [facility] [address] Health Maintenance Due Date Last Done Comments Depression Screening 1961 Albumin/Creatinine Ratio 1967 Hepatitis C Screening 1967 Colonoscopy 1994 Fecal Occult Blood Test 1994 Sigmoidoscopy 1994 Zoster Vaccines (1 of 2) 1999 AAA Screening 2014 DTaP,Tdap,and Td Vaccines (2 - Td or Tdap) 02/14/2020 02/13/2010, 08/29/1998 *SPIROMETRY ONCE FOR ASTHMA-ADULT 07/22/2022 COVID-19 Vaccine ( - season) 2023 Cologuard 08/06/2023 08/06/2020, 08/01/2020 Colorectal Cancer Screening 08/06/2023 Influenza Vaccine (FLU shot) (Season Ended) 2024 07/28/2021, 09/05/2019, 07/11/2018, Additional history exists GFR 10/21/2024 10/21/2023, 1008/2013, 05/28/2014, Additional history exists Pneumococcal Vaccine: 65+ Years Completed 09/25/2018, 07/16/2016 GARDASIL-HPV IMMUNIZATION SERIES Aged Out No longer eligible based on patient's age to complete this topic Hepatitis B Aged Out No longer eligi ble based on patient's age to complete this topic MENINGOCOCCAL (MENACTRA/MENVEO) Aged Out No longer eligible based on patient's age to complete this topic documented as of this encounter Medical Devices Not on filedocumented as of this encounter Advance Directives Latest Code Status on File Code Status Date Activated Date Inactivated Comments Full Code 05/24/2014 11:16 PM 05/29/2014 1:41 PM This order reflects the patients wishes and were consensually agreed upon. Question Answer Comments Discussion of Advance Directives occurred with: Patient/Family Does the patient have a Living Will? No Does the patient have Health Care Power of Holistic Health Practitioner? No Care Teams Grain Operations Manager Relationship Specialty Start Date End Date Yue Chakraborty MD [address] [facility] [place] [address] PCP - General Family Medicine 05/07/22 documented as of this encounter
[2024-01-06] MEDS ORDERED: HYDROmorphone INJ 0.5 MG/0.5 ML SYR IV PRN (13:44)
[2024-01-06] MEDS ORDERED: bisacodyL 10 MG SUPP PR PRN (13:44)
[2024-01-06] MEDS ORDERED: [UNRECOGNIZED DRUG - OTHER] IM SCH (13:44)
[2024-01-06] MEDS ORDERED: NALOXONE HCL 0.4 MG/1 ML VIAL/CARP IV PRN (13:44)
[2024-01-06] MEDS ORDERED: MAGNESIUM HYDROXIDE SUSP 30 ML UDC PO PRN (13:44)
[2024-01-06] MEDS ORDERED: TESTOSTERONE UNDECANOATE IM SCH (13:44)
[2024-01-06] MEDS ORDERED: METOCLOPRAMIDE HCL INJ 5 MG/ML 2 ML VIAL IV PRN (13:44)
[2024-01-06] MEDS: SODIUM CHLORIDE 0.9% 1,000 ML IV SCH (14:08)
[2024-01-06] MEDS: CARBIDOPA/LEVODOPA 25/100MG TAB PO SCH (15:14)
[2024-01-06] MEDS: KETOROLAC TROMETHAMINE 15 MG/ML VIAL IV SCH (15:15)
[2024-01-06] MEDS: oxyCODONE HCL IR 5 MG TAB (IMMEDIATE RELEASE) PO PRN (15:38)
[2024-01-06] MEDS: DOCUSATE SODIUM 100 MG CAP PO SCH (20:08)
[2024-01-06] MEDS: SENNA 8.6 MG TAB PO SCH (20:09)
[2024-01-06] MEDS: traZODone HCL 50 MG TAB PO PRN (20:54)
--- NOTE | 2024-01-07 08:04 | Orthopedic Progress Note ---
Date of Service January 07, 2024 Assessment & Plan (1) Status post reverse arthroplasty of left shoulder: Overall he is doing well. Is not having much pain in the left shoulder. He will be seen by physical therapy today for ambulation and range of motion exercises. He can be discharged home later today. He will follow-up with orthopedics in 2 weeks. Lance Madison was seen and examined at bedside this morning. Overall is doing very well. He is not having much pain in the left shoulder. He was able to get some sleep last night. He has no complaints.. Review of Systems All systems reviewed & are unremarkable except as noted in HPI & below. Physical Exam On physical examination of the left shoulder, the dressing is clean and dry. He is wearing his sling as instructed. He has active motion of his hand and his wrist.. Results & Data Results & Data Laboratory Results . Diagnostic Findings Postoperative x-rays of the left shoulder show the prosthesis to be in anatomic alignment without any evidence of fracture, desiccation, or loosening.. PG Care Time/CCT Total # of Minutes Spent Total Time Spent with Patient: Total time spent is greater than 50% in coordination of care (as documented) at patient's floor/unit and/or counseling patient: Coding Level of Care Code 07862 Post Operative Follow-Up Diagnoses Status post reverse arthroplasty of left shoulder Z96.612
--- NOTE | 2024-01-07 08:05 | Discharge Summary ---
Date of Service January 07, 2024 Admission HPI (Per Admitting) Los is a pleasant 73-year-old male who I did a right reverse shoulder replacement on in May. He has done very well with that. Unfortunately, he is dealing with left shoulder pain. X-rays and clinical examination of the diagnostic for cuff tear arthropathy of the left shoulder. After failing conservative treatment, he has elected proceed with a left reverse shoulder arthroplasty.. Admission Exam (Per Admitting) On physical examination left shoulder, he has decreased range of motion weakness throughout.. Principal Diagnosis Same as "Discharge Diagnosis" noted below under Discharge Instructions. Discharge Exam On physical examination of the left shoulder, the dressing is clean and dry. He is wearing his sling as instructed. He has active motion of his hand and his wrist.. Discharge Data Procedures Performed Operation Date: 01/06/24 09:00 Actual Procedures p Left Total Shoulder Arthroplasty Reverse(Left) - Tremayne Ballard DO Ordered Studies 01/06/24 05:00 US - OR guided needle placemen Routine Hospital Course (1) Status post reverse arthroplasty of left shoulder: On January 06, 2024 Los arrived at [facility] and underwent a left reverse shoulder replacement without complication. He had a general anesthetic and a left interscalene nerve block. Postoperatively he was placed in a sling and transferred to the general orthopedic floors. His hospital course was uneventful. On postop day #1, his vital signs were stable and his pain was well-controlled. He was able to participate well with physical therapy doing ambulation and range of motion exercises. He was then discharged home. He will follow-up with orthopedics in 2 weeks. PG Care Time/CCT Total # of Minutes Spent Total Time Spent with Patient: Total time spent is greater than 50% in coordination of care (as documented) at patient's floor/unit and/or counseling patient: Discharge Plan Discharge Items Reason For Visit: DJD Shoulder Left Discharge Diagnosis: Left reverse shoulder replacement Activity: As commented below Call non-emergency contact if: your wound has increased redness and your wound has increased drainage Follow-up/Referrals: Yue Chakraborty MD [Primary Care Provider] - Addtl Attending Provider Instructions: Activity and Therapy Recommendations: * If you are using [facility] then therapy will be provided at your home until they feel you have accomplished all of your goals. * If you are using [facility] then Physical Therapy will be provided until they feel you are ready to start Outpatient Physical Therapy. * If you are not using home therapy then Outpatient Physical Therapy should start about 3-5 days from your day of surgery. Therapy will last about 8-12 weeks * Wear your sling for 3 weeks, unless otherwise instructed. You may remove your sling to shower and to dress, but otherwise, you should be in your sling at all times, including while sleeping * The shoulder replacement is very stable and you can use your hand while in the sling * You were shown a series of exercises in the hospital. Do these exercises daily including the exercises you were shown in physical therapy. Medications: * Narcotic You will likely be sent home from the hospital with a prescription for the narcotic pain medication that worked best throughout your stay. * Cefadroxil -take the antibiotic twice a day for 10 days to help with infection. * Other medications may be prescribed for specific circumstances. If you have any questions, please call the office at . * Resume previous home medications unless otherwise instructed Dressing Care: Leave the Silverlon dressing in place for 7 days. After 7 days you may remove the dressing. If the incision is not draining then you may leave the julissa open to air. If there is a little bit of drainage or if the julissa are getting stuck on your clothing then cover the incision with a dry dressing. The julissa will be removed at your 2 week follow-up appointment. Showering: You may shower with the Silverlon dressing in place. Do not let the shower spray hit the dressing directly. Pat the Silverlon dressing dry. If the dressing becomes wet underneath, then simply remove the dressing. Keep the incision dry until you are 7 days out from the day of surgery. After 7 days you may remove the Silverlon dressing and shower with the julissa exposed. Let soapy water run over the julissa and pat them dry. Do not scrub or soak the incision. Things To Watch For: * Drainage from the incision site that occurs more than one week after your surgery. * Increased redness at the incision site. * Fever above 102 degrees Fahrenheit. * Unusual chest pain or shortness of breath. * Call [facility] at with any of the above problems Follow-Up Visit: Follow-up with Dr. Ballard's PA (Tremayne Ling) 2-3 weeks after your day of surgery. He will remove your julissa and answer any questions. If you have any additional questions or concerns, Dr Ballard is usually in the office at the same time and will be available An appointment was probably scheduled when you signed-up for surgery in the office. If you have any questions call More detailed instructions as well as Frequently Asked Questions were provided in a folder by our office when you signed-up for surgery. Please review these instructions when you get home. If you have any further questions or concerns, please feel free to call the office at [phone] Pending Studies at Discharge: No Stand-Alone Forms: My [facility] Medications and DC Order Prescriptions: No Action amlodipine 2.5 mg tablet 2.5 mg PO QAM Qty: 90 3RF pantoprazole [Protonix] 40 mg tablet,delayed release (DR/EC) 40 mg PO QAM Qty: 90 3RF ezetimibe [Zetia] 10 mg tablet 10 mg PO QAM Qty: 90 1RF losartan 100 mg tablet 100 mg PO QAM Qty: 90 1RF tramadol 50 mg tablet 50 mg PO TID PRN (Reason: pain) Qty: 120 0RF Rx Instructions: PDMP searched atorvastatin 20 mg tablet 20 mg PO QAM Qty: 90 1RF fluticasone furoate-vilanterol [Breo Ellipta] 100-25 mcg/dose blister with device 1 inh inhalation QAM Qty: 60 1RF trazodone 50 mg tablet 50 mg PO UD PRN (Reason: insomnia) Qty: 30 5RF Rx Instructions: 50 mg orally HS PRN; temazepam 15 mg capsule 15 - 30 mg PO HS PRN (Reason: Insomnia) Qty: 60 1RF Rx Instructions: 1-2 tabs PO HS PRN for insomnia orally at bedtime PRN; PDMP searched,okay to fill oxycodone 5 mg tablet 5 mg PO Q6H PRN (Reason: pain) Qty: 30 0RF aspirin 81 mg tablet,delayed release (DR/EC) 81 mg PO BID Qty: 60 0RF cefadroxil 500 mg capsule 500 mg PO BID 10 Days Qty: 20 0RF glucosamine-chondroitin 900 mg tablet 900 mg PO QAM multivitamin Tablet 1 tab PO QAM Aveed 750 mg/3 mL (250 mg/mL) solution 250 mg IM UD Patient Comments: every 10 weeks carbidopa-levodopa 25-100 mg tablet 1 tab PO TID Rx Instructions: TAKES AT 0600, 1200, & 1800 aspirin 81 mg Tablet,Chewable 81 mg PO QAM nadh-ascorbic acid-sod bicarb 2.5-0.3-3 mg Tablet 1 tab PO QAM cholecalciferol (vitamin D3) [Vitamin D3] 25 mcg (1,000 unit) Capsule 25 mcg PO QAM Admission Data Admit Date/Time: 01/06/24 10:30 Attending Provider: Tremayne Ballard Admit Provider: Tremayne Ballard Primary Care Provider: Yue Chakraborty
[2024-01-07] MEDS: FLUTICASONE/VILANTEROL 100/25MCG 14 PUFFS/INHALER INH SCH (08:43)
[2024-01-07] MEDS: LOSARTAN POTASSIUM 50 MG TAB PO SCH (08:44)
[2024-01-07] MEDS: MULTIVITAMIN TAB PO SCH (08:45)
[2024-01-07] MEDS: dexAMETHasone 4 MG TAB PO SCH (08:46)
[2024-01-07] MEDS: amLODIPine BESYLATE 5 MG TAB PO SCH (08:47)
[2024-01-07] MEDS: EZETIMIBE 10 MG TAB PO SCH (08:47)
[2024-01-07] MEDS: ASPIRIN 81 MG ECTAB PO SCH (08:47)
[2024-01-07] MEDS: ATORVASTATIN 20 MG TAB PO SCH (08:47)
[2024-01-07] MEDS ORDERED: [UNRECOGNIZED DRUG - MIXTURE] PO SCH (09:00)
== END 2024-01-07 13:52 | disposition home or self-care (01) ==
LOC: 3E 07:38 → ASU 07:38

== ENCOUNTER 2024-09-11 06:38 | Inpatient (IN) ==
--- NOTE | 2024-09-06 09:24 | Anesthesiology Consultation ---
Date of Service September 06, 2024 Assessment & Plan (1) Encounter for pre-operative examination: Chart Review Chart Review: Acceptable Risk for Surgery (pending review of most recent pacemaker report ) and Patient NOT seen in Pre Admission Testing - Please obtain most recent pacemaker check ([facility]) (please see if pacer check can be email-ed due to issues reading faxed copies) - Will leave to anesthesiologist's discretion DOS if repeat CXR needed - Check BSG AM DOS Per Cardio/EP phone note 08/06/24= "Patient may hold ASA for an operative procedure as long as necessary..." -Infectious Disease screening: Per PAT nursing assessment on 09/03/24. No known infectious disease contacts in past 10 days or current infectious disease symptoms. No recent travel outside the country. L Seen by neuro 03/27/24= seen for follow up on Parkinson's. Well controlled with Sinemet. Doing well and exam reassuring . In regards to his previous MRI of the brain showing lacunar infarct as well as chronic microvascular ischemic changes recommend continue current dose of aspirin 81 mg daily and Lipitor 40 mg daily. In regards to his known cervical disc disease he denies any neck pain or radicular symptoms... Recommend protein shake for weight loss. Follow up in six months Left Reverse TSA 01/06/24= Done under [place] with Grade 2 view with MAC #3. ETT #7.5. Atraumatic x 1 DL History Surgery Operation Date: 09/11/24 07:30 Proposed Procedures p TURP (Transurethral Resection Prostate), - Camacho Burdick MD s Sebaceous Cyst Scrotal Excision - Camacho Burdick MD Height/Weight Height: 5 ft 8 in Weight: 68.039 kg Allergies Allergy/AdvReac Type Severity Reaction Status Date / Time No Known Allergies Allergy Verified 09/03/24 10:23 Medications Home Medications Medication Instructions Recorded Confirmed Last Taken carbidopa 25 mg-levodopa 100 mg 1 tab PO TID 10/15/20 09/03/24 01/06/24 tablet 0615 antiarthritic combination no.2 900 900 mg PO QAM 03/05/22 09/03/24 01/04/24 mg tablet (glucosamine-chondroitin) multivitamin 1 tab PO QAM 03/05/22 09/03/24 01/05/24 testosterone undecanoate 750 mg/3 250 mg IM UD 03/05/22 09/03/24 Unknown mL (250mg/mL) intramuscular solution (Aveed) cholecalciferol (vitamin D3) 25 25 mcg PO QAM 12/26/23 09/03/24 01/06/24 06:15 mcg (1,000 unit) capsule (Vitamin D3) nadh-ascorbic acid-sod bicarb 2.5 1 tab PO QAM 12/26/23 09/03/24 01/05/24 mg-0.3 mg-3 mg tablet pantoprazole 40 mg tablet,delayed 40 mg PO QAM #90 tabs 05/18/24 09/03/24 Unknown release (Protonix) aspirin 81 mg tablet,delayed 81 mg PO QAM 05/28/24 09/03/24 Unknown release losartan 100 mg tablet 100 mg PO QAM #90 tabs 06/14/24 09/03/24 Unknown atorvastatin 20 mg tablet 20 mg PO QAM #90 tabs 07/02/24 09/03/24 Unknown trazodone 50 mg tablet 50 mg PO UD PRN insomnia #30 tabs 07/02/24 09/03/24 Unknown temazepam 15 mg capsule 15 - 30 mg (1 - 2 x 15 mg) PO HS 07/16/24 09/03/24 Unknown PRN Insomnia #60 caps mirtazapine 15 mg tablet 15 mg PO HS #30 tabs 07/20/24 09/03/24 Unknown fluticasone furoate 100 1 inh inhalation QAM #60 ea 08/06/24 09/03/24 Unknown mcg-vilanterol 25 mcg/dose inhalation powder (Breo Ellipta) tramadol 50 mg tablet 50 mg PO TID PRN pain #120 tabs 08/09/24 09/03/24 Unknown ezetimibe 10 mg tablet (Zetia) 10 mg PO QAM #90 tabs 08/20/24 09/03/24 Unknown escitalopram oxalate 10 mg tablet 10 mg PO QAM 09/03/24 09/03/24 Unknown metformin 500 mg tablet 500 mg PO QAM 09/03/24 09/03/24 Unknown Past Medical History Medical History Alcohol dependence with withdrawal - event occurred in 2020- tremor - currently drinks beer- "a couple per week" 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 Seen by vascular surgery 09/28/23 - no indication for vascular intervention - next follow up 08/2025 Asthma well controlled with daily inhaler BPH (benign prostatic hyperplasia) Chronic pain Depression GERD (gastroesophageal reflux disease) well controlled and stable History of bradycardia reason for pacemaker History of COVID-19 last had 03/2024. Hyperlipidemia Hypertension Hypogonadism in male Insomnia Pacemaker Due to SN dysfunction Medtronic - last checked ~06/2024 Parkinson disease Prediabetes metformin daily TIA (transient ischemic attack) Questionable- 2020 per records Past Family History Family History Father Coronary heart disease Myocardial infarction Pacemaker Other No family history of adverse response to anesthesia Denies family history of Ovarian cancer Prostate cancer Breast cancer Colorectal cancer Past Surgical History Surgical History (Updated 09/06/24 @ 09:45 by Ayala Marie PA-C) H/O hemorrhoidectomy History of arthroscopic knee surgery left? History of arthroscopy of shoulder rt/left History of colonoscopy History of esophagogastroduodenoscopy (EGD) History of left shoulder replacement History of pacemaker Placed 2013 >bradycardia *medtronic>Dr. Palma/[facility] checks device (last checked ~ 06/2024) History of penile implant History of reverse total replacement of right shoulder joint Right Reverse TSA 06/06/23= Done under [place] with LMA #4.0. Atraumatic History of tonsillectomy and adenoidectomy History of transurethral resection of prostate History of vasectomy [place] teeth removed Social History Smoking Status: Former smoker Do You Dip or Chew Tobacco: No Smoking End Date: as a teenager Hx Alcohol Use: Yes Alcohol type: beer alcohol intake frequency: a few times a week Hx Substance Use: No substance use type: does not use Lab Results Anesthesia Preop Results Results Anesthesia Widget: WBC 7.17 K/ul (4.8-10.8) 09/05/24 Hgb 15.3 g/dl (14.0-18.0) 09/05/24 Hct 44.7 % (42.0-52.0) 09/05/24 Plt 226 K/uL (130-400) 09/05/24 Na 140 mmol/L (136-145) 09/05/24 K 4.1 mmol/L (3.5-5.1) 09/05/24 Cl 107 mmol/L (98-107) 09/05/24 CO2 26 mmol/L (21-32) 09/05/24 BUN 15 mg/dl (6-23) 09/05/24 Creat 0.85 mg/dl (0.6-1.4) 09/05/24 Glucose Level 87 mg/dl (70-99(Fasting)) 09/05/24 Testing Laboratory Results 09/05/24= URINE CULTURE: Results pending (will leave final results to discretion of surgeon on how to proceed) Electrocardiogram Date: 09/05/24 Findings: + NSR @ (75bpm) Normal EKG per cardio Stress Test Date: 03/27/19 Type: exercise (ECHO) No evidence of ischemia within the limitations of the study (maximum stress heart rate which was 107 bpm). No chest pain with exercise Stress EKG response was normal with upsloping ST segment depression noted at peak stress, normalizing by 1 minute in recovery. Occasional PACs noted with stress. Sinus rhythm noted at rest. Mild concentric LVH. Qualitative LVEF is 55-59% (normal). LV wall motion is normal Normal RV size and systolic function No pericardial effusion is noted Mild MR. Mild TR. Other Testing Chest CT 05/22/24= Airspace opacities in the right upper lobe may represent infectious/inflammatory process. No abnormalities to explain abnormal weight loss. Calcified lymph nodes may represent prior granulomatous disease. Lungs and pleura: Bibasilar opacities are noted in the right upper lobe. There is a 4 mm nodule in the lingula Carotid duplex 09/05/23= Right carotid artery duplex examination indicates evidence of less than 50% stenosis of the internal carotid artery. Left carotid artery duplex examination indicates evidence of less than 50% stenosis of the internal carotid artery. Visualized portions of the bilateral internal carotid arteries measure normal size. Bilateral vertebral arteries show antegrade flow
[2024-09-11] MEDS ORDERED: fentaNYL citrate PF 100 MCG/2 ML VIAL ONE (07:04)
[2024-09-11] MEDS ORDERED: LIDOCAINE 2% 2 ML VIAL/AMP(20MG/ML) INFIL ONE (07:04)
[2024-09-11] MEDS ORDERED: ONDANSETRON INJ 2 MG/ML 2 ML VIAL ONE (07:04)
[2024-09-11] MEDS ORDERED: DEXAMETHASONE SOD INJ 4 MG/ML VIAL ONE (07:04)
[2024-09-11] MEDS ORDERED: PROPOFOL IV EMULSION 10 MG/ML 20 ML VIAL IV ONE (07:04)
[2024-09-11] MEDS ORDERED: MIDAZOLAM HCL 1 MG/ML 2ML VIAL ONE (07:04)
[2024-09-11] MEDS ORDERED: GLYCOPYRROLATE 0.2 MG/ML VIAL ONE (07:05)
[2024-09-11] MEDS: LR 15ML/HR IV SCH (07:27)
--- NOTE | 2024-09-11 07:38 | History & Physical Report ---
Date of Service September 11, 2024 Assessment & Plan (1) BPH loc w urin obs/LUTS: Plan BPH w/ symptoms plan for TURP - 23 hr obs stay after surgery risks, benefits, and expectations reviewed will also remove sebaceous cysts History of Present Illness Primary Care Provider: Yue Chakraborty MD Long standing voiding dysfunction enlarged gland limited response to meds presenting for definitive treatment via TURP also with sebaceous cysts that area amenable to easy removal - plan to address these today as well Allergies Allergy/AdvReac Type Severity Reaction Status Date / Time No Known Allergies Allergy Verified 09/11/24 07:14 Home Medications Medication Instructions Recorded Confirmed Type carbidopa 25 mg-levodopa 100 mg 1 tab PO TID 10/15/20 09/11/24 History tablet antiarthritic combination no.2 900 900 mg PO QAM 03/05/22 09/11/24 History mg tablet (glucosamine-chondroitin) multivitamin 1 tab PO QAM 03/05/22 09/11/24 History testosterone undecanoate 750 mg/3 250 mg IM UD 03/05/22 09/11/24 History mL (250mg/mL) intramuscular solution (Aveed) cholecalciferol (vitamin D3) 25 25 mcg PO QAM 12/26/23 09/11/24 History mcg (1,000 unit) capsule (Vitamin D3) nadh-ascorbic acid-sod bicarb 2.5 1 tab PO QAM 12/26/23 09/11/24 History mg-0.3 mg-3 mg tablet aspirin 81 mg tablet,delayed 81 mg PO QAM 05/28/24 09/11/24 History release losartan 100 mg tablet 100 mg PO QAM #90 tabs 06/14/24 09/11/24 Rx atorvastatin 20 mg tablet 20 mg PO QAM #90 tabs 07/02/24 09/11/24 Rx trazodone 50 mg tablet 50 mg PO UD PRN insomnia #30 tabs 07/02/24 09/11/24 Rx temazepam 15 mg capsule 15 - 30 mg (1 - 2 x 15 mg) PO HS 07/16/24 09/11/24 Rx PRN Insomnia #60 caps mirtazapine 15 mg tablet 15 mg PO HS #30 tabs 07/20/24 09/11/24 Rx tramadol 50 mg tablet 50 mg PO TID PRN pain #120 tabs 08/09/24 09/11/24 Rx ezetimibe 10 mg tablet (Zetia) 10 mg PO QAM #90 tabs 08/20/24 09/11/24 Rx escitalopram oxalate 10 mg tablet 10 mg PO QAM 09/03/24 09/11/24 History metformin 500 mg tablet 500 mg PO QAM 09/03/24 09/11/24 History fluticasone furoate 100 1 inh inhalation QAM #60 ea 09/07/24 09/11/24 Rx mcg-vilanterol 25 mcg/dose inhalation powder (Breo Ellipta) pantoprazole 40 mg tablet,delayed 40 mg PO QAM #90 tabs 09/07/24 09/11/24 Rx release (Protonix) Past Med/Surg History Problem List Prediabetes Chronic fatigue Rash Unintentional weight loss Status post reverse arthroplasty of left shoulder (~12/2023) Elevated PSA Rotator cuff arthropathy of left shoulder Gross hematuria Status post reverse total replacement of right shoulder (~05/2023) Encounter for pre-operative examination Depression Rotator cuff arthropathy of right shoulder Right shoulder pain Chronic pain GERD (gastroesophageal reflux disease) Low testosterone Parkinson disease Stable per patient Alcohol abuse Sinus node dysfunction Insomnia Aneurysm of internal carotid artery (Acute) 1 cm diameter of proximal LICA, ectasia <50% bilateral ICA stenosis, asymptomatic. Seen by vascular surgery 09/28/23 - no indication for vascular intervention - next follow up 08/2025 Asthma (Acute) uses routine inhaler QAM "controlled" breathing stable and controlled High blood pressure (Acute) High cholesterol (Acute) Male erectile disorder (Acute) BPH loc w urin obs/LUTS Hypogonadism Medical History Prediabetes metformin daily Pacemaker Due to SN dysfunction Medtronic - last checked ~06/2024 History of COVID-19 last had 03/2024. 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 Seen by vascular surgery 09/28/23 - no indication for vascular intervention - next follow up 08/2025 TIA (transient ischemic attack) Questionable- 2020 per records GERD (gastroesophageal reflux disease) well controlled and stable Alcohol dependence with withdrawal - event occurred in 2020- tremor - currently drinks beer- "a couple per week" Surgical History History of left shoulder replacement History of reverse total replacement of right shoulder joint Right Reverse TSA 06/06/23= Done under [place] with LMA #4.0. Atraumatic History of esophagogastroduodenoscopy (EGD) History of colonoscopy H/O hemorrhoidectomy [place] teeth removed History of tonsillectomy and adenoidectomy History of transurethral resection of prostate History of penile implant History of arthroscopic knee surgery left? History of vasectomy History of pacemaker Placed 2013 >bradycardia *medtronic>Dr. Palma/[facility] checks device (last checked ~ 06/2024) History of arthroscopy of shoulder rt/left Family History Father Coronary heart disease Myocardial infarction Pacemaker Other No family history of adverse response to anesthesia Denies family history of Ovarian cancer Prostate cancer Breast cancer Colorectal cancer Social History Smoking Status: Former smoker Tobacco Type: Cigarettes Age Started Using Tobacco: 16; Age Quit Using Tobacco: 21; packs per day: 0.5; Smoking End Date: as a teenager; Second Hand Exposure: No; Do You Dip or Chew Tobacco: No; Tobacco Cessation Education Requested by Patient: No Hx Alcohol Use: Yes Alcohol type: beer Alcohol Intake Frequency: Monthly or Less Alcohol Intake Frequency Comment: 2-4 beers daily Hx Substance Use: No Preferred Language: Omani Communication Ability: Effective Visual Impairment: Limited Hearing Ability: Normal Director Risk Required: No Beliefs That Will Affect Care: None marital status: Current Living Situation: Alone current occupational status: employed and retired current occupation: work 3 days a month and clinic. How many Children do You have: 2 Other Information That Helps Us Care for You: No Feels Safe at Home: Yes Safety Concerns: Feels Safe At This Time Childhood Exposure to Second-Hand Smoke: Yes Diet: regular caffeine: Yes during the past year weight has: remained stable Dental Care, Regularly: Yes Physical Activity Frequency: Daily Seatbelt Use: always Sunscreen Use: Yes (sometimes) Assistive Devices: Glasses Physical Exam Constitutional: well developed and well nourished Neck: neck nontender Respiratory: normal respiratory effort; no respiratory distress and does not use accessory muscles Cardiovascular: Rate/Rhythm: regular rate Vessels: radial pulses present Extremities: no edema Gastrointestinal (Abdomen): Inspection/Auscultation: abdomen normal to inspection Percussion/Palpation: abdomen soft; abdomen nontender and no guarding Musculoskeletal: Head/Neck/Chest: normocephalic and head atraumatic Extremities: extremities normal to inspection Skin: no rashes and no lesions Trauma: no evidence of skin trauma Neurologic: awake; not obtunded Speech / Cognition: normal speech Motor/Sensory: no tremor Psychiatric: Orientation: alert and oriented x 3 Genitourinary: no CVA tenderness Lymphatic: no lymphadenopathy Results & Data Vital Signs (Past 12 Hours) Vital Signs Temp Pulse Resp BP Pulse Ox O2 Del Method 09/11/24 07:17 36.7 C 84 20 148/97 H 93 Room Air
[2024-09-11] MEDS ORDERED: ePHEDrine sulfate 50 MG/ML AMP IV PRN (07:44)
[2024-09-11] MEDS ORDERED: PROMETHAZINE HCL 6.25 MG in SODIUM CHLORIDE 0.9% 50 ML IV PRN (07:44)
[2024-09-11] MEDS ORDERED: ONDANSETRON INJ 2 MG/ML 2 ML VIAL IV PRN (07:44)
[2024-09-11] MEDS ORDERED: ATROPINE SULFATE 0.1 MG/ML 10ML SYR IV PRN (07:44)
[2024-09-11] MEDS: fentaNYL citrate PF 100 MCG/2 ML VIAL IV PRN (09:46)
--- NOTE | 2024-09-11 09:51 | Operative Report ---
PG Post Operative Report Pre & Post Diagnosis Operation Date: 09/11/24 08:10 Pre-Op Diagnosis: Benign Prostatic Hyperplasia with Lower Urinary Tract symptoms Post-Op Diagnosis: Benign Prostatic Hyperplasia with Lower Urinary Tract symptoms I identified the patient and participated in the time-out.: Yes Procedure Operation Date: 09/11/24 08:10 Actual Procedures p Transurethral Resection of Prostate(Not Applicable) - Camacho Burdick MD s Excision Scrotal Sebaceous Cyst(Not Applicable) - Camacho Burdick MD Surgeon Camacho Burdick MD Wetland Scientist none Estimated Blood Loss 5 Findings Consistent with Post-Op Diagnosis Specimens Prostate chips Description of Procedure The patient was identified in the preoperative holding area, appropriate informed consents were reviewed and completed and the patient was transferred to the operative suite. Upon arrival, appropriate antibiotics and anesthesia were administered and the patient was placed in dorsal lithotomy position and prepped and draped in sterile fashion. Before beginning the cystoscopic portion of the case I evaluated the scrotum. He previously had a very large sebaceous cyst in the dependent portion of the scrotum but this was spontaneously ruptured last week and has drained. He has a smaller sebaceous cyst adjacent to it. He asked if I could remove the base of the original cyst as well as the secondary cyst. After evaluation I was able to incise the skin overlying the smaller cyst and extract all the sebum. No stitch was required, no cautery was required. I then turned my attention to the base of the other sebaceous cyst. There was some thickened tissue in this area and I made a small ellipse around the area and excised it entirely. I did not require cautery or stitch to close this area either. Hemostasis was excellent. Each of these areas was approximately 3 mm in size. I then began the cystoscopic portion of the case. I passed a 26 Canadian resectoscope with 30 degree lens. Inspection revealed a healthy-appearing urethra without strictures. His prostate is enlarged. On a cystoscopic evaluation as well as preoperative imaging it appears that he has a substantial intravesical component. Cystoscopically this is confirmed to originate from the left lateral wall of the prostate as well as some of the anterior aspect of the prostate. This feels a significant portion of the lumen of the bladder. I was able to identify UOs and interestingly, the right aspect of his left lateral lobe was unremarkable and appropriately resected during his prior TURP. I then utilized a loop electrode to begin resection of the intravesical component. I began at the lateral aspects of this intravesical component and gradually worked my way down to the central portion. I used extreme care to avoid encroachment upon the bladder wall. After entirely excising the intravesical component I was able to trim some minor anterior tissue and a small amount of left lateral lobe tissue to smooth the prostate. I irrigated a large quantity of the prostate chips out of the bladder immediately and then gradually extracted any remaining chips. I confirmed that all chips were out before meticulously obtaining hemostasis from the resection site. The bladder was healthy in appearance and new 22 Canadian Cotton catheter was inserted with 30 cc of water placed in the balloon. The prostate chips were passed off the table as a specimen. He was reversed of anesthesia and taken to the recovery room in stable condition. There were no complications. I attest to the content of the Intraoperative Record and any orders documented therein. Any exceptions are noted below.
--- NOTE | 2024-09-11 10:46 | Anesthesiology Progress Note ---
Date of Service September 11, 2024 Anesthesia Post Procedure Vital Signs Vital Signs: Temp Pulse Resp BP Pulse Ox O2 Del Method O2 Flow Rate 09/11/24 10:28 88 15 142/86 H 97 Nasal Cannula 2 09/11/24 10:20 87 15 142/87 H 97 Nasal Cannula 2 09/11/24 10:10 36.5 C 77 18 150/92 H 96 Nasal Cannula 2 09/11/24 10:00 76 16 141/89 H 90 Room Air 09/11/24 09:50 90 20 151/95 H 99 Oxymask 2 09/11/24 09:40 98 H 15 146/97 H 100 Oxymask 4 09/11/24 09:36 36.1 C L 99 H 12 146/107 H 97 Oxymask 6 09/11/24 07:17 36.7 C 84 20 148/97 H 93 Room Air Pain Intensity Penis: Pain Intensity: 3 Transfer of Care Handoff Completed per policy Notes Mental Status: alert / awake / arousable Patient Amnestic to Procedure: Yes Nausea / Vomiting: adequately controlled Pain: adequately controlled Airway Patency, RR, SpO2: stable & adequate BP & HR: stable & adequate Hydration State: stable & adequate Anesthetic Complications: no major complications apparent
[2024-09-11] MEDS ORDERED: PHARMACY GLYCEMIC MGMT CONSULT PRN (10:52)
[2024-09-11] MEDS: CIPROFLOXACIN / D5W 400 MG/200 ML BAG IV SCH (10:55)
[2024-09-11] MEDS: SODIUM CHLORIDE 0.9% 500 ML IV SCH (11:29)
[2024-09-11] MEDS ORDERED: CARBOHYDRATES FOR HYPOGLYCEMIA PO PRN (11:30)
[2024-09-11] MEDS ORDERED: DEXTROSE 50% 50 ML SYRINGE IV PRN (11:30)
[2024-09-11] MEDS ORDERED: GLUCOSE 10 TAB/TUBE PO PRN (11:30)
[2024-09-11] MEDS ORDERED: GLUCOSE 40% GEL 15 GM TUBE PO PRN (11:30)
[2024-09-11] MEDS ORDERED: GLUCAGON FOR INJ 1 MG VIAL SQ PRN (11:30)
[2024-09-11] MEDS: CARBIDOPA/LEVODOPA 25/100MG TAB PO SCH (11:36)
--- NOTE | 2024-09-11 12:00 | Pharmacy Report ---
Pharmacy Glycemic Short Note 2 - Date of Service September 11, 2024 - Glycemic Short BSG Results (Last 24 hours): 09/11/24 09/11/24 07:06 11:35 POC Glucose 91 109 H OUTPATIENT ANTIDIABETIC REGIMEN: * metformin 500mg po QAM Last HbA1c: 6.4% on 05/03/24, another one has been ordered for 09/12/24 with AM labs ASSESSMENT: * 73 year old male admitted today for resection of the prostate and scrotal sebaceous cyst excision. (POD #0). Pharmacy has been consulted for glycemic management postop. * Preop BSG was 91mg/dL and postop BSG was 109mg/dL. Patient did receive 8mg iv dexamethasone preop. * Since postop BSG is below goal range despite receiving steroids, basal insulin will not be initiated at this time. Bolus insulin with very loose parameters will be started at lunch time today incase it is needed for prandial coverage. PLAN FOR INPATIENT GLYCEMIC CONTROL: * Hold outpatient oral diabetes medications * Basal insulin * hold * Bolus insulin * NovoLog per scale ACHS or Q6hrs while NPO * Goal Range: Low 110 mg/dL - High 140 mg/dL * Correction Factor: 40 mg/dL/unit * Nutritional / Prandial insulin per carb ratio of 1 unit per 25 grams CHO consumed
[2024-09-11] MEDS: INSULIN ASPART PER UNIT CHARGE SC SCH (12:10)
[2024-09-11] MEDS: IBUPROFEN 200 MG TAB PO PRN (13:27)
[2024-09-11] MEDS: traMADol HCL 50 MG TABLET PO PRN (14:11)
[2024-09-11] MEDS: TEMAZEPAM 15 MG CAPSULE PO PRN (21:52)
[2024-09-11] MEDS: MIRTAZAPINE TAB 15 MG TAB PO SCH (21:52)
[2024-09-11] MEDS: traZODone HCL 50 MG TAB PO PRN (21:52)
[2024-09-12] MEDS: oxyCODONE/ACETAMINOPHEN 5mg/325mg TAB PO STA (01:19)
[2024-09-12 07:15] VITALS: RESP 16
--- NOTE | 2024-09-12 07:43 | Urology Progress Note ---
Date of Service September 12, 2024 Assessment & Plan (1) BPH loc w urin obs/LUTS: Plan Postop day #1 status post TURP Will plan to irrigate his catheter this morning and if clears appropriately we can remove the catheter preparing for discharge home. Admission and Anticipated Discharge Date Admission Date: September 11, 2024 Subjective Currently feeling well but experience clot obstruction and catheter obstruction overnight Catheter was exchanged and he has been draining sufficiently since that time No pain right now Urine is dark in color, Merlot colored Physical Exam Physical Exam: Old blood within the urine Results & Data Vital Signs (Past 12 Hours) Vital Signs Temp Pulse Resp BP BP Pulse Ox O2 Del Method 09/12/24 07:14 36.3 C L 86 16 126/75 95 Room Air 09/12/24 02:58 36.4 C L 86 18 107/70 94 Room Air 09/11/24 23:21 36.3 C L 89 18 123/74 94 Room Air 09/11/24 20:17 36.8 C 103 H 18 112/80 93 Room Air PG Care Time/CCT Total # of Minutes Spent Total Time Spent with Patient: Total time spent is greater than 50% in coordination of care (as documented) at patient's floor/unit and/or counseling patient: Coding Level of Care Code None Diagnoses BPH loc w urin obs/LUTS N40.1
[2024-09-12] MEDS: EZETIMIBE 10 MG TAB PO SCH (07:52)
[2024-09-12] MEDS: LOSARTAN POTASSIUM 50 MG TAB PO SCH (07:53)
[2024-09-12] MEDS: PANTOprazole 40 MG TAB PO SCH (07:53)
[2024-09-12] MEDS: ATORVASTATIN 20 MG TAB PO SCH (07:53)
[2024-09-12] MEDS: FLUTICASONE/VILANTEROL 100/25MCG 14 PUFFS/INHALER INH SCH (07:54)
[2024-09-12] MEDS: ESCITALOPRAM OXALATE 10 MG TAB PO SCH (07:54)
[2024-09-12 08:44] LABS: Estimated Average Glucose 117 mg/dl; Hemoglobin A1C 5.7 % (4.5-5.6)
--- NOTE | 2024-09-12 11:37 | Pharmacy Report ---
Pharmacy Glycemic Sign Off Nt - Date of Service September 12, 2024 - Assessment & Plan ASSESSMENT: * Pharmacy was consulted by Dr Burdick on 09/11 for glycemic control and to write orders per [facility] inpatient glycemic control protocol. * Major changes made by pharmacy to antidiabetic regimen include: * added novolog scale * Do not anticipate further changes in patient status that would quickly deteriorate glycemic control (i.e. patient to be NPO for upcoming procedure, steroids tapering, starting tube feedings, etc). * Please see recommendations for outpatient antidiabetic regimen below. PLAN FOR INPATIENT GLYCEMIC CONTROL: No changes needed to current regimen. * Hold basal * Continue NovoLog per scale ACHS/Q6hrs while NPO * Goal range = 110-140 mg/dl * CF = 40 mg/dl/unit * CR = 1 unit for ever -- g CHO consumed * Pharmacy is signing off of glycemic consult and will no longer be making adjustments to inpatient regimen. Please feel free to re-consult if needed. Thank you.
[2024-09-12 19:33] VITALS: O2SAT 93
[2024-09-13 07:44] VITALS: PULSE 70; TEMP 97.7
--- NOTE | 2024-09-13 11:26 | Urology Progress Note ---
Date of Service September 13, 2024 Assessment & Plan (1) BPH loc w urin obs/LUTS: Plan: - POD #2 s/p TURP with Dr. Burdick - Doing well, progressing as expected - Afebrile with stable vitals - Cotton draining appropriately with pink to light miller this morning - Plan for removal of catheter this morning for voiding trial - Monitor for void - Anticipate home later today - Expected clinical course reviewed, all questions answered - Will arrange outpatient follow-up with our service Admission and Anticipated Discharge Date Admission Date: September 12, 2024 Subjective Patient seen and examined at bedside this morning. He was awake and resting in bed. Catheter did not require irrigation overnight. He reports an episode in which he thought it was blocked. He got up to go to the bathroom and did a slight bear down and catheter seems to be draining appropriately. Cotton draining pink/light miller this am, no clots noted. Review of Systems Constitutional: as per Subjective / HPI Genitourinary: + as per Subjective / HPI Physical Exam Constitutional: well developed and well nourished; no acute distress Respiratory: normal respiratory effort; no respiratory distress and no labored breathing Gastrointestinal (Abdomen): Inspection/Auscultation: abdomen normal to inspection Musculoskeletal: Head/Neck/Chest: normocephalic Neurologic: moves all extremities and awake Psychiatric: Orientation: alert and oriented x 3 Genitourinary: Cotton draining pink/light miller this am, no clots noted. Results & Data Vital Signs (Past 12 Hours) Vital Signs Temp Pulse Resp BP Pulse Ox O2 Del Method 09/13/24 07:39 36.5 C 70 16 125/79 93 Room Air PG Care Time/CCT Total # of Minutes Spent Total Time Spent with Patient: Total time spent is greater than 50% in coordination of care (as documented) at patient's floor/unit and/or counseling patient: Coding Level of Care Code None Diagnoses BPH loc w urin obs/LUTS N40.1
[2024-09-13 14:28] VITALS: BP 118/73
--- NOTE | 2024-09-13 14:34 | Discharge Summary ---
Date of Service September 13, 2024 Admission HPI Per Admitting Provider Long standing voiding dysfunction enlarged gland limited response to meds presenting for definitive treatment via TURP also with sebaceous cysts that area amenable to easy removal - plan to address these today as well Principal Diagnosis BPH Discharge Exam Constitutional well developed and well nourished; no acute distress Respiratory normal respiratory effort; no respiratory distress and no labored breathing Gastrointestinal (Abdomen) Inspection/Auscultation: abdomen normal to inspection Musculoskeletal Head/Neck/Chest: normocephalic Neurologic moves all extremities and awake Psychiatric Orientation: alert and oriented x 3 Discharge Data Allergies Allergy/AdvReac Type Severity Reaction Status Date / Time No Known Allergies Allergy Verified 09/11/24 07:14 Procedures Performed Operation Date: 09/11/24 08:10 Actual Procedures p Transurethral Resection of Prostate(Not Applicable) - Camacho Burdick MD s Excision Scrotal Sebaceous Cyst(Not Applicable) - Camacho Burdick MD Hospital Course (1) BPH loc w urin obs/LUTS: - POD #2 s/p TURP with Dr. Burdick - Doing well, progressing as expected - Afebrile with stable vitals - Cotton draining appropriately with pink to light miller this morning - Plan for removal of catheter this morning for voiding trial - Monitor for void - Anticipate home later today - Expected clinical course reviewed, all questions answered - Will arrange outpatient follow-up with our service Total Time Total Time Spent Total Time Spent (In Minutes): 25 Discharge Plan Discharge Items Patient Disposition: Home - Self-Care Reason For Visit: Benign Prostatic Hyperplasia with Lower Urinary Tr Discharge Diagnosis: Benign Prostatic Hyperplasia with Lower Urinary Tract symptoms Activity: Per Instructions section Lifting: No more than 25 pounds Bathing Comment: Okay to shower after discharge Sexual Activity: Wait until after follow-up appointment Exercise/Sports: Wait until after follow-up appointment Non-emergency contact: Surgeon and Urologist Call non-emergency contact if: your pain is not controlled, you have a fever and your temperature is above 101 Follow-up/Referrals: Camacho Burdick MD [Physician] - 10/11/24 11:30 am Yue Chakraborty MD [Primary Care Provider] - Diet: Regular and Carb Consistent or DM2 Addtl Attending Provider Instructions: Please take all medications as prescribed and keep all follow-ups as scheduled. Please call our office at [phone] with any questions, concerns or need to reschedule appointments for any reason. We are happy to assist you. Tips for your recovery at home: Dont be alarmed by brownish or reddish blood or clots in your urine. This is a result of the procedure. This may occur off and on for weeks to months after the procedure but should continue to improve. Drink plenty of fluids during the day (enough to keep your urine very light colored). This will help keep a healthy flow of urine. Do not lift >25 lbs until your followup Avoid constipation. Please use a stool softener (Colace) for the first two weeks after your procedure Be sure to finish the antibiotics as prescribed. If you go home with a catheter, please wash tubing where it enters your body twice daily with mild soap (Dove or Dial). Once your catheter is removed, expect some blood in your urine and some burning when you urinate. You should have an appointment to have this removed, if you do not please call our office to arrange. Pending Studies at Discharge: Yes (pathology) Stand-Alone Forms: My [facility] [email or web address], Smoking Cessation Medications and DC Order Prescriptions: Continued losartan 100 mg tablet 100 mg PO QAM Qty: 90 1RF trazodone 50 mg tablet 50 mg PO UD PRN (Reason: insomnia) Qty: 30 5RF Rx Instructions: 50 mg orally HS PRN; atorvastatin 20 mg tablet 20 mg PO QAM Qty: 90 1RF tramadol 50 mg tablet 50 mg PO TID PRN (Reason: pain) Qty: 120 0RF Rx Instructions: PDMP searched ezetimibe [Zetia] 10 mg tablet 10 mg PO QAM Qty: 90 1RF fluticasone furoate-vilanterol [Breo Ellipta] 100-25 mcg/dose blister with device 1 inh inhalation QAM Qty: 60 1RF pantoprazole [Protonix] 40 mg tablet,delayed release (DR/EC) 40 mg PO QAM Qty: 90 3RF temazepam 15 mg capsule 15 - 30 mg PO HS PRN (Reason: Insomnia) Qty: 60 1RF Rx Instructions: 1-2 tabs PO HS PRN for insomnia orally at bedtime PRN; PDMP searched,okay to fill glucosamine-chondroitin 900 mg tablet 900 mg PO QAM multivitamin Tablet 1 tab PO QAM Aveed 750 mg/3 mL (250 mg/mL) solution 250 mg IM UD Patient Comments: every 10 weeks mirtazapine 15 mg tablet 15 mg PO HS Qty: 30 2RF carbidopa-levodopa 25-100 mg tablet 1 tab PO TID Rx Instructions: TAKES AT 0600, 1200, & 1800 nadh-ascorbic acid-sod bicarb 2.5-0.3-3 mg Tablet 1 tab PO QAM cholecalciferol (vitamin D3) [Vitamin D3] 25 mcg (1,000 unit) Capsule 25 mcg PO QAM metformin 500 mg tablet 500 mg PO QAM escitalopram oxalate 10 mg tablet 10 mg PO QAM Held aspirin 81 mg tablet,delayed release (DR/EC) 81 mg PO QAM Hold Instructions: Resume on 09/15/24. Okay to resume on 09/15 if urine remains clear to light pink Discharge Orders: Discharge Order (Routine); Ordered 09/13/24 Ordered By: Irina Medina Admission Data Admit Date/Time: 09/12/24 13:43 Attending Provider: Camacho Burdick Admit Provider: Camacho Burdick Primary Care Provider: Yue Chakraborty Other Interventions: Discharge Summary Assessment (RN) Last Done: 09/13/24 14:26 Coding Level of Care Code 59479 IN/OBS DISCH 30 MIN/LESS Diagnoses BPH loc w urin obs/LUTS N40.1
== END 2024-09-13 15:58 | disposition home or self-care (01) | DRG 714 ==
LOC: ASU 06:38 → 3N 06:38
DX: E78.5 Hyperlipidemia, unspecified; F10.20 Alcohol dependence, uncomplicated; N40.1 Benign prostatic hyperplasia with lower urinary tract symptoms; Z87.891 Personal history of nicotine dependence; Z79.82 Long term (current) use of aspirin; G20.A1 Parkinson's disease without dyskinesia, without mention of fluctuations; Z95.0 Presence of cardiac pacemaker; Z79.84 Long term (current) use of oral hypoglycemic drugs; J45.909 Unspecified asthma, uncomplicated; N50.89 Other specified disorders of the male genital organs; R73.03 Prediabetes; L72.3 Sebaceous cyst; K21.9 Gastro-esophageal reflux disease without esophagitis; I10 Essential (primary) hypertension